=== PATIENT | male | born 1980 | race Caucasian/White ===

== ENCOUNTER 2020-06-27 04:40 | Inpatient (IN) | payer OTHER, SELFPAY ==
[2020-06-27] VITALS (14 sets, daily range): BP systolic 90–121; BP diastolic 59–75; PULSE 89–114; RESP 12–26; TEMP 36.6–37.4; O2SAT 93–98; BMI 31.8
--- NOTE | 2020-06-27 04:48 | ECG_ITS ---
Test Reason : CP Blood Pressure : / mmHG Vent. Rate : 112 BPM Atrial Rate : 112 BPM P-R Int : 124 ms QRS Dur : 070 ms QT Int : 320 ms P-R-T Axes : 047 037 035 degrees QTc Int : 436 ms Sinus tachycardia Borderline ECG No previous ECGs available Referred By: Sally Madera Electronically Signed By:JUVE EDWARDS MD
--- NOTE | 2020-06-27 04:52 | ED_ITS ---
HPI - SOB/Dyspnea General Chief Complaint: Dyspnea Stated Complaint: RESPIRATORY DISTRESS Time Seen by Provider: 06/27/20 04:48 Source: EMS Mode of arrival: EMS Limitations: other (patient is a vague historian and clearly intoxicated) History of Present Illness HPI Narrative: patient drinking and using IV heroin/cocaine tonight called EMS for dyspnea - RA sats in 80s. MD elicited complaint: shortness of breath Pertinent past history: asthma and IV drug use Onset (ago): hour(s) (few) Context: smoke/fume exposure Timing: constant Severity: severe Exacerbating factors: nothing Relieving factors: oxygen and bronchodilators Known history of: asthma and IVDU Associated symptoms: chest pain, cough and wheezing Treatment prior to arrival: oxygen, bronchodilator and aspirin Related Data Allergies Allergy/AdvReac Type Severity Reaction Status Date / Time No Known Allergies Allergy Verified 06/27/20 04:48 Review of Systems Review of Systems: Constitutional : No Fever, No Chills ENT/Mouth : No sore throat, No Rhinorrhea, No Swallowing Difficulty Eyes: No Eye Pain, No Swelling, No Redness Cardiovascular : pos Chest Pain, positive SOB, No Orthopnea, no Edema Respiratory : pos Cough, pos Sputum, pos Wheezing, positive dyspnea Gastrointestinal : No Nausea, No Vomiting, No Diarrhea, No abdominal Pain, No Hematochezia, No Melena Genitourinary : No Dysuria, No Urinary Frequency, No Hematuria Musculoskeletal : No joint pain, No Myalgias Skin : No Skin Lesions, No rash Neuro : No Weakness, No Numbness, No Dizziness, No Headache Psych : No Anxiety/Panic, No Depression Heme/Lymph: No Bruising, No Lymphadenopathy Endocrine : No Polyuria, No Polydipsia All other systems reviewed and are negative [facility] Past Medical History Attestation statement: The following information was validated with the patient. Medical History (Updated 06/27/20 @ 07:17 by Sally Madera DO) Asthma Latent tuberculosis Substance abuse Social History Social History (Updated 06/27/20 @ 04:56 by Sally Madera DO) Alcohol intake: never Smoking Status: Current every day smoker Use of substances other than those prescribed or required for medical reasons: Yes Substance Use Type: Crack/Cocaine and Heroin Substance Use Frequency: Chronic Longstanding Advance Directives: No Advance Directives Information Provided: No Physical Exam Vital Signs: Vital Signs: Last Vital Signs Temp 98.1 F 06/27/20 06:20 Pulse 108 H 06/27/20 06:20 Resp 17 06/27/20 06:20 BP 102/59 L 06/27/20 06:20 Pulse Ox 96 06/27/20 06:20 Body Mass Index 31.8 Appearance: Somnolent Oriented X3. Mild acute distress. Eyes: Pupils pinpoint ENT: Pharynx normal. Neck: Normal inspection. Neck supple. CVS: tachycardic heart rate and rhythm. Pulses normal. Respiratory: Mild respiratory distress. Breath sounds diffuse insp and end exp wheezes Abdomen: Soft and nontender. Skin: Skin warm and dry. Normal skin color. Normal skin turgor. Extremities: No lower extremity edema. No calf ttp Neuro: Oriented X 3. No motor deficit. No sensory deficit. Course Course Course Narrative: 99% on treatment, initial BPs low due to substance abuse (opiate overdose) and not infection or severe sepsis after narcan administration BP 114/62 and he is more awake and talking ddimer elevated CTA ordered troponin elevated no REGIS on EKG, already given ASA by EMS 30cc/kg bolus ordered at this time patient is improving planned admit still requires O2 but much improved, will add on zosyn for possible aspiration MDM - SOB/Dyspnea MDM Narrative Medical decision making narrative: 39 yo male with hx of asthma and dx with TB in alf 3 years ago (unsure of course) comes in with hypoxia and wheezing after IVDA along with chest pain at this time will obtain labs, cultures, CXR, 5mg neb, IV steroids and magnesium, the patient has pinpoint pupils and repeatedly nods off during interview will need narcan as well, COVID swab, anticipate admi ssion after initial resuscitation Lab Data Result diagrams: 06/27/20 05:07 06/27/20 05:07 Labs: Lab Results 06/27/20 06/27/20 06/27/20 Range/Units 05:06 05:06 05:07 WBC 11.2 H (4.8-10.8) X10*3/uL RBC 5.51 (4.60-5.80) X10*6/uL Hgb 16.6 (14.0-18.0) g/dl Hct 49.3 (42-52) % MCV 89.5 (80-98) fL MCH 30.1 (27.0-33.0) pg MCHC 33.7 (31.0-36.0) g/dl RDW 12.3 (11.0-16.0) % Plt Count 404 H (160-400) X10*3/uL MPV 8.8 L (9.4-12.4) fL Immature Gran % (Auto) 0.7 H (0.0-0.4) % Neut % (Auto) 81.9 H (45-73) % Lymph % (Auto) 11.6 L (20-40) % [place] % (Auto) 5.5 (2-11) % Eos % (Auto) 0.0 (0-4) % Baso % (Auto) 0.3 (0-2) % Lymph # (Auto) 1.3 (1.2-4.9) X10*3/uL [place] # (Auto) 0.6 (0.1-1.2) X10*3/uL Eos # (Auto) 0.0 (0.0-0.4) X10*3/uL Baso # (Auto) 0.0 (0.0-0.2) X10*3/uL Abs Immat Gran (auto) 0.08 H (0.00-0.03) X10*3/uL Absolute Neuts (auto) 9.2 H (2.0-8.3) X10*3/uL Absolute Nucleated RBC 0.000 (0.0-0.012) X10*3/uL Nucleated RBC % (auto) 0.0 (0.0-0.2) /100WBC D-Dimer NG/ML VBG pH 7.35 (7.32-7.43) VBG pCO2 44 mmhg VBG pO2 173 mmhg VBG HCO3 24 mmol/L VBG O2 Saturation 99.1 % VBG Base Excess -1.8 mmol/L Sodium (135-145) mmol/L Potassium (3.3-5.1) mmol/l Chloride (96-108) mmol/L Carbon Dioxide (22-29) mmol/L Anion Gap (12-20) BUN (9-16) mg/dL Creatinine (0.5-1.4) mg/dL Estim Creat Clear Calc Estimated GFR Random Glucose (60-115) mg/dL Lactic Acid 2.7 H* (0.5-2.0) mmol/L Calcium (8.4-10.2) mg/dL Magnesium (1.6-2.6) mg/dL Ferritin (20-250) ng/mL Total Bilirubin (0.0-1.0) mg/dL Direct Bilirubin (0.0-0.5) mg/dL AST (5-37) U/L ALT (0-40) U/L Alkaline Phosphatase (39-117) U/L Lactate Dehydrogenase (118-273) U/L Troponin I High Sens (<3.5-35.0) ng/L Total Protein (6.5-8.0) g/dL Albumin (3.5-5.0) g/dL Lipase (8-78) U/L Procalcitonin ng/mL Ethyl Alcohol mg/dL Coronavirus (PCR) (Negative) Influenza Type A (PCR) (Negative) Influenza Type B (PCR) (Negative) RSV RNA Qual (PCR) (Negative) 06/27/20 06/27/20 06/27/20 Range/Units 05:07 05:07 05:07 WBC (4.8-10.8) X10*3/uL RBC (4.60-5.80) X10*6/uL Hgb (14.0-18.0) g/dl Hct (42-52) % MCV (80-98) fL MCH (27.0-33.0) pg MCHC (31.0-36.0) g/dl RDW (11.0-16.0) % Plt Count (160-400) X10*3/uL MPV (9.4-12.4) fL Immature Gran % (Auto) (0.0-0.4) % Neut % (Auto) (45-73) % Lymph % (Auto) (20-40) % [place] % (Auto) (2-11) % Eos % (Auto) (0-4) % Baso % (Auto) (0-2) % Lymph # (Auto) (1.2-4.9) X10*3/uL [place] # (Auto) (0.1-1.2) X10*3/uL Eos # (Auto) (0.0-0.4) X10*3/uL Baso # (Auto) (0.0-0.2) X10*3/uL Abs Immat Gran (auto) (0.00-0.03) X10*3/uL Absolute Neuts (auto) (2.0-8.3) X10*3/uL Absolute Nucleated RBC (0.0-0.012) X10*3/uL Nucleated RBC % (auto) (0.0-0.2) /100WBC D-Dimer 908 NG/ML VBG pH (7.32-7.43) VBG pCO2 mmhg VBG pO2 mmhg VBG HCO3 mmol/L VBG O2 Saturation % VBG Base Excess mmol/L Sodium 138 (135-145) mmol/L Potassium 4.5 (3.3-5.1) mmol/l Chloride 104 (96-108) mmol/L Carbon Dioxide 24 (22-29) mmol/L Anion Gap 15 (12-20) BUN 21 H (9-16) mg/dL Creatinine 1.40 (0.5-1.4) mg/dL Estim Creat Clear Calc 80.7 Estimated GFR 57 Random Glucose 180 H (60-115) mg/dL Lactic Acid (0.5-2.0) mmol/L Calcium 9.0 (8.4-10.2) mg/dL Magnesium (1.6-2.6) mg/dL Ferritin 90 (20-250) ng/mL Total Bilirubin (0.0-1.0) mg/dL Direct Bilirubin (0.0-0.5) mg/dL AST (5-37) U/L ALT (0-40) U/L Alkaline Phosphatase (39-117) U/L Lactate Dehydrogenase 305 H (118-273) U/L Troponin I High Sens (<3.5-35.0) ng/L Total Protein (6.5-8.0) g/dL Albumin (3.5-5.0) g/dL Lipase (8-78) U/L Procalcitonin ng/mL Ethyl Alcohol mg/dL Coronavirus (PCR) NEGATIVE (Negative) Influenza Type A (PCR) NEGATIVE (Negative) Influenza Type B (PCR) NEGATIVE (Negative) RSV RNA Qual (PCR) NEGATIVE (Negative) 06/27/20 06/27/20 06/27/20 Range/Units 05:07 05:07 05:07 WBC (4.8-10.8) X10*3/uL RBC (4.60-5.80) X10*6/uL Hgb (14.0-18.0) g/dl Hct (42-52) % MCV (80-98) fL MCH (27.0-33.0) pg MCHC (31.0-36.0) g/dl RDW (11.0-16.0) % Plt Count (160-400) X10*3/uL MPV (9.4-12.4) fL Immature Gran % (Auto) (0.0-0.4) % Neut % (Auto) (45-73) % Lymph % (Auto) (20-40) % [place] % (Auto) (2-11) % Eos % (Auto) (0-4) % Baso % (Auto) (0-2) % Lymph # (Auto) (1.2-4.9) X10*3/uL [place] # (Auto) (0.1-1.2) X10*3/uL Eos # (Auto) (0.0-0.4) X10*3/uL Baso # (Auto) (0.0-0.2) X10*3/uL Abs Immat Gran (auto) (0.00-0.03) X10*3/uL Absolute Neuts (auto) (2.0-8.3) X10*3/uL Absolute Nucleated RBC (0.0-0.012) X10*3/uL Nucleated RBC % (auto) (0.0-0.2) /100WBC D-Dimer NG/ML VBG pH (7.32-7.43) VBG pCO2 mmhg VBG pO2 mmhg VBG HCO3 mmol/L VBG O2 Saturation % VBG Base Excess mmol/L Sodium (135-145) mmol/L Potassium (3.3-5.1) mmol/l Chloride (96-108) mmol/L Carbon Dioxide (22-29) mmol/L Anion Gap (12-20) BUN (9-16) mg/dL Creatinine (0.5-1.4) mg/dL Estim Creat Clear Calc Estimated GFR Random Glucose (60-115) mg/dL Lactic Acid (0.5-2.0) mmol/L Calcium (8.4-10.2) mg/dL Magnesium 2.3 (1.6-2.6) mg/dL Ferritin (20-250) ng/mL Total Bilirubin 0.4 (0.0-1.0) mg/dL Direct Bilirubin 0.3 (0.0-0.5) mg/dL AST 44 H (5-37) U/L ALT 39 (0-40) U/L Alkaline Phosphatase 69 (39-117) U/L Lactate Dehydrogenase (118-273) U/L Troponin I High Sens 54.9 H (<3.5-35.0) ng/L Total Protein 7.2 (6.5-8.0) g/dL Albumin 4.2 (3.5-5.0) g/dL Lipase 47 (8-78) U/L Procalcitonin ng/mL Ethyl Alcohol < 10 mg/dL Coronavirus (PCR) (Negative) Influenza Type A (PCR) (Negative) Influenza Type B (PCR) (Negative) RSV RNA Qual (PCR) (Negative) 06/27/20 Range/Units 05:07 WBC (4.8-10.8) X10*3/uL RBC (4.60-5.80) X10*6/uL Hgb (14.0-18.0) g/dl Hct (42-52) % MCV (80-98) fL MCH (27.0-33.0) pg MCHC (31.0-36.0) g/dl RDW (11.0-16.0) % Plt Count (160-400) X10*3/uL MPV (9.4-12.4) fL Immature Gran % (Auto) (0.0-0.4) % Neut % (Auto) (45-73) % Lymph % (Auto) (20-40) % [place] % (Auto) (2-11) % Eos % (Auto) (0-4) % Baso % (Auto) (0-2) % Lymph # (Auto) (1.2-4.9) X10*3/uL [place] # (Auto) (0.1-1.2) X10*3/uL Eos # (Auto) (0.0-0.4) X10*3/uL Baso # (Auto) (0.0-0.2) X10*3/uL Abs Immat Gran (auto) (0.00-0.03) X10*3/uL Absolute Neuts (auto) (2.0-8.3) X10*3/uL Absolute Nucleated RBC (0.0-0.012) X10*3/uL Nucleated RBC % (auto) (0.0-0.2) /100WBC D-Dimer NG/ML VBG pH (7.32-7.43) VBG pCO2 mmhg VBG pO2 mmhg VBG HCO3 mmol/L VBG O2 Saturation % VBG Base Excess mmol/L Sodium (135-145) mmol/L Potassium (3.3-5.1) mmol/l Chloride (96-108) mmol/L Carbon Dioxide (22-29) mmol/L Anion Gap (12-20) BUN (9-16) mg/dL Creatinine (0.5-1.4) mg/dL Estim Creat Clear Calc Estimated GFR Random Glucose (60-115) mg/dL Lactic Acid (0.5-2.0) mmol/L Calcium (8.4-10.2) mg/dL Magnesium (1.6-2.6) mg/dL Ferritin (20-250) ng/mL Total Bilirubin (0.0-1.0) mg/dL Direct Bilirubin (0.0-0.5) mg/dL AST (5-37) U/L ALT (0-40) U/L Alkaline Phosphatase (39-117) U/L Lactate Dehydrogenase (118-273) U/L Troponin I High Sens (<3.5-35.0) ng/L Total Protein (6.5-8.0) g/dL Albumin (3.5-5.0) g/dL Lipase (8-78) U/L Procalcitonin 0.27 ng/mL Ethyl Alcohol mg/dL Coronavirus (PCR) (Negative) Influenza Type A (PCR) (Negative) Influenza Type B (PCR) (Negative) RSV RNA Qual (PCR) (Negative) ECG Data Attestation: I personally reviewed and interpreted this ECG as follows: ECG interpretation date: 06/27/20 ECG interpretation time: 04:59 Interpretation: Rate: 112 Rhythm: sinus tachycardia [place]: normal Normal P waves. Normal JEFF. Normal QRS complex. ST T wave : normal no REGIS qTC: normal prior studies: no acute ischemia The study has been interpreted contemporaneously by me. . Critical Care Time Critical Care Time Critical Care Time: Yes Total Critical Care Time: 60 Attestation: 5mg neb, IVF 30cc/kg bolus, reassessments, IV narcan I attest to this time spent taking care of the patient Discharge Plan Discharge Clinical Impression: Acidosis, lactic, Elevated troponin, Cocaine abuse Asthma with exacerbation Qualifiers: Asthma severity: moderate Asthma persistence: unspecified Qualified Code(s): J45.901 - Unspecified asthma with (acute) exacerbation Heroin overdose Qualifiers: Encounter type: initial encounter Injury intent: accidental or unintentional Qualified Code(s): T40.1X1A - Poisoning by heroin, accidental (unintentional), initial encounter Pneumonia Qualifiers: Pneumonia type: due to unspecified organism Laterality: unspecified laterality Lung location: unspecified part of lung Qualified Code(s): J18.9 - Pneumonia, unspecified organism Patient Disposition: Admitted As Inpatient
[2020-06-27] MEDS: methylPREDNISolone Sod Succ/PF 125 MG/2 ML VIAL 60 MG IVPUSH (05:04)
[2020-06-27] MEDS: Magnesium Sulfate/H2O 2 GM/50 ML PIGGYBACK IV (05:04)
[2020-06-27] MEDS: Naloxone HCl 0.4 MG/ML VIAL 0.2 MG IVPUSH (05:05)
[2020-06-27] MEDS: Albuterol Sulfate (0.083%) 2.5 MG/3 ML VIAL.NEB 5 MG INHALE (05:05)
[2020-06-27] MEDS: 0.9 % Sodium Chloride 500 ML IV (05:15)
[2020-06-27 05:17] LABS: Basophils Percent Auto 0.3 % (0-2); Hematocrit 49.3 % (42-52); Hemoglobin 16.6 g/dl (14.0-18.0); Imm Gran Abs Auto 0.08 X10*3/uL (0.00-0.03); Imm Gran Pct Auto 0.7 % (0.0-0.4); Lymphocytes Absolute Auto 1.3 X10*3/uL (1.2-4.9); Lymphocytes Percent Auto 11.6 % (20-40); MANUAL DIFF FLAG NO; Mean Corpuscular HGB Conc 33.7 g/dl (31.0-36.0); Mean Corpuscular Hemoglobin 30.1 pg (27.0-33.0); Mean Corpuscular Volume 89.5 fL (80-98); Mean Platelet Volume 8.8 fL (9.4-12.4); Monocytes Absolute Auto 0.6 X10*3/uL (0.1-1.2); Monocytes Percent Auto 5.5 % (2-11); Neutrophils Absolute Auto 9.2 X10*3/uL (2.0-8.3); Neutrophils Percent Auto 81.9 % (45-73); Platelet Count 404 X10*3/uL (160-400); Red Blood Count 5.51 X10*6/uL (4.60-5.80); Red Cell Distribution Width 12.3 % (11.0-16.0); White Blood Count 11.2 X10*3/uL (4.8-10.8)
[2020-06-27] MEDS: Azithromycin 500 MG TABLET PO (05:21)
[2020-06-27] MEDS: cefTRIAXone sodium 1 GM in 0.9 % Sodium Chloride 50 ML IV (05:23)
[2020-06-27 05:29] LABS: D Dimer 908 NG/ML
[2020-06-27 05:32] LABS: Base Excess VBG -1.8 mmol/L; HCO3 VBG 24 mmol/L; Oxygen Saturation VBG 99.1 %; PCO2 VBG 44 mmhg; PO2 VBG 173 mmhg; pH VBG 7.35 (7.32-7.43)
--- NOTE | 2020-06-27 05:40 | CT_ITS ---
EXAMINATION: CTA CHEST PE STUDY CLINICAL INFORMATION: chest pain, dyspnea elevated ddimer COMPARISON: No pertinent prior studies are available for comparison. TECHNIQUE: Prior to contrast administration, noncontrast localization images were obtained. After the administration of 60 mL of Omnipaque 350 IV contrast, contiguous thin slice helical images were obtained through the thorax. Reformatted MIP images in the coronal and sagittal planes were obtained at the acquisition workstation. This CT examination was performed using dose optimization techniques as appropriate, variously including the following: *Automated exposure control *Adjustment of mA and/or kV according to patient size (this includes techniques or standardized protocols for targeted exams where dose is matched to indication/reason for exam; i.e. extremities or head) *Use of iterative reconstruction technique DLP: 330 mGy-cm. FINDINGS: The bolus timing on this study was acceptable for visualization of the pulmonary arterial tree. There are no intraluminal pulmonary arterial filling defects present to suggest pulmonary embolism. Patchy bilateral airspace disease is seen right more so than left. Infectious etiology would be suspected. Aspiration considered less likely effusion. This is not the typical pattern for edema. Calcified granuloma incidentally seen in the left lower lobe. No abnormal pulmonary nodules or masses are appreciated. No significant hilar or mediastinal adenopathy. There is no evidence of pleural effusion or pneumothorax. The heart is normal in size. No evidence of ventricular septal bowing or right heart strain. Great vessels are normal. Otherwise the mediastinum is unremarkable. There is no pericardial effusion or pericardial thickening. Limited evaluation of the upper abdominal viscera is unremarkable. CT/CT angio chest PE protocol IMPRESSION: No evidence for pulmonary emboli. Patchy bilateral right greater than left airspace disease is seen infectious etiology suspected. Consider atypical or viral infection with this appearance. VTE: Negative
[2020-06-27 05:47] LABS: Ethanol < 10 mg/dL
[2020-06-27 05:52] LABS: Lactic Acid 2.7 mmol/L (0.5-2.0)
[2020-06-27 05:57] LABS: Influenza A PCR NEGATIVE (Negative); Influenza B PCR NEGATIVE (Negative); Resp Syncy Virus RNA Qual PCR NEGATIVE (Negative); SARS COV2 PCR INHOUSE NEGATIVE (Negative)
[2020-06-27 05:59] LABS: Anion Gap 15 (12-20); Blood Urea Nitrogen 21 mg/dL (9-16); Carbon Dioxide 24 mmol/L (22-29); Chloride 104 mmol/L (96-108); Creatinine Clr Calc Pharmacy 80.7; Estimated Glomerular Filt Rate 57; Glucose Random 180 mg/dL (60-115); Lactate Dehydrogenase 305 U/L (118-273); Potassium 4.5 mmol/l (3.3-5.1); Sodium 138 mmol/L (135-145)
[2020-06-27 06:02] LABS: Alanine Aminotransferase 39 U/L (0-40); Albumin Level 4.2 g/dL (3.5-5.0); Alkaline Phosphatase 69 U/L (39-117); Aspartate Amino Transferase 44 U/L (5-37); Bilirubin Direct 0.3 mg/dL (0.0-0.5); Bilirubin Total 0.4 mg/dL (0.0-1.0); Lipase 47 U/L (8-78); Magnesium 2.3 mg/dL (1.6-2.6); Total Protein 7.2 g/dL (6.5-8.0)
[2020-06-27 06:05] LABS: Troponin-I High Sensitivity 54.9 ng/L (<3.5-35.0)
[2020-06-27 06:23] LABS: Ferritin 90 ng/mL (20-250)
[2020-06-27 06:38] LABS: Procalcitonin 0.27 ng/mL
--- NOTE | 2020-06-27 06:55 | PC.NURSE ---
REPORT FROM GAVIN HERRERA. PT RESTING QUIETLY ON STRETCHER
[2020-06-27] MEDS: iohexoL 350 MG/ML 100 ML INFUS..BTL IV (07:06)
[2020-06-27 07:13] LABS: Reflex Lactate? Lactic Acid Added
--- NOTE | 2020-06-27 07:42 | PC.NURSE ---
PT AWARE OF IMPENDING ADMISSION. REQUESTING FOOD.
[2020-06-27] MEDS: Piperacillin Sodium/Tazobactam 3.375 GM in 0.9 % Sodium Chloride 50 ML IV (08:01)
[2020-06-27 08:04] LABS: B Type Natriuretic Peptide 19 pg/mL (<100)
--- NOTE | 2020-06-27 09:47 | PC.NURSE ---
PT TALKING ON PHONE CONTINUOSLY. GIVEN BKFST TRAY
--- NOTE | 2020-06-27 10:32 | P.HPHOSP_ITS ---
History of Present Illness Date of Service: 06/27/20 <Altagracia Castillo NP - Last Filed: 06/27/20 14:33> Chief Complaint: Shortness of breath <Altagracia Castillo NP - Last Filed: 06/27/20 14:33> 39-year-old man presenting to the ER with shortness of breath. Apparently he had used alcohol, heroin /cocaine and developed dyspnea. Apparently EMS reported his oxygen saturation in the 80s. He reported that he had been clean for some time but only was last night and seemed quite vague about it. He denied any recent fever, chills, nausea, vomiting, diarrhea. He did report a cough with green and brown sputum, blood tinged. Did report some right-sided chest pain near the axilla that he reported as sharp especially when taken a deep breath in and now. He was found to have an elevated D-dimer therefore [facility] CT was obtained which was negative for PE but did show a consolidation. He was noted to be tachycardic, tachypneic with elevated lactic acid. He was given 30 mL/kg IV fluid bolus, Zosyn, Rocephin, azithromycin. He will be admitted for further management treatment of severe sepsis related to community-acquired pneumonia versus aspiration pneumonia. <Altagracia Castillo NP - Last Filed: 06/27/20 14:33> Review of Systems Review of Systems: Denies any recent fever chills or decrease in appetite respiratory See HPI cardiovascular see HPI gastrointestinal denies any dysphagia abdominal pain nausea vomiting or diarrhea genitourinary denies any dysuria frequency or hematuria musculoskeletal denies any joint pain or swelling neuropsych denies any weakness or seizures all other systems reviewed are negative <Altagracia Castillo NP - Last Filed: 06/27/20 14:33> [facility] Medical History: Medical History (Updated 07/07/20 @ 00:00 by Devin Jackson) Asthma Asthma with exacerbation Elevated troponin Heroin overdose Latent tuberculosis Substance abuse <Altagracia Castillo NP - Last Filed: 06/27/20 14:33> Functional capacity: independent ambulation <Altagracia Castillo NP - Last Filed: 06/27/20 14:33> Pertinent family history: denies cardiac disease <Altagracia Castillo NP - Last Filed: 06/27/20 14:33> Social History: Social History (Updated 06/27/20 @ 04:56 by Sally Madera DO) Household Members: Spouse Housing: Apartment Alcohol intake: never Smoking Status: Current every day smoker Tobacco Type: Cigarette Packs Per Day: 1.5 Cigarettes Per Day: 30.0 Second Hand Smoke Exposure: No Substance Use Type: Crack/Cocaine and Heroin service: No Current occupational status: unemployed <Altagracia Castillo NP - Last Filed: 06/27/20 14:33> Meds Allergies/Adverse reactions: Allergies Allergy/AdvReac Type Severity Reaction Status Date / Time No Known Allergies Allergy Verified 06/27/20 04:48 <Altagracia Castillo NP - Last Filed: 06/27/20 14:33> Physical Exam Vital Signs and Narrative: Vital Signs: Last Vital Signs Temp 98.1 F 06/27/20 06:20 Pulse 105 H 06/27/20 08:03 Resp 18 06/27/20 08:03 BP 121/75 06/27/20 08:03 Pulse Ox 98 06/27/20 08:03 Body Mass Index 31.8 <Altagracia Castillo NP - Last Filed: 06/27/20 14:33> Results Labs CBC and Chem 7: : 06/29/20 05:37 06/28/20 05:21 <Altagracia Castillo NP - Last Filed: 06/27/20 14:33> Labs: Laboratory Results - last 24 hr 06/27/20 06/27/20 06/27/20 05:06 05:06 05:07 MCV 89.5 MCH 30.1 MCHC 33.7 RDW 12.3 Plt Count 404 H MPV 8.8 L Immature Gran % (Auto) 0.7 H Neut % (Auto) 81.9 H Lymph % (Auto) 11.6 L [place] % (Auto) 5.5 Eos % (Auto) 0.0 Baso % (Auto) 0.3 Lymph # (Auto) 1.3 [place] # (Auto) 0.6 Eos # (Auto) 0.0 Baso # (Auto) 0.0 Abs Immat Gran (auto) 0.08 H Absolute Neuts (auto) 9.2 H Absolute Nucleated RBC 0.000 Nucleated RBC % (auto) 0.0 D-Dimer VBG pH 7.35 VBG pCO2 44 VBG pO2 173 VBG HCO3 24 VBG O2 Saturation 99.1 VBG Base Excess -1.8 Anion Gap Estim Creat Clear Calc Estimated GFR Random Glucose Lactic Acid 2.7 H* Calcium Magnesium Ferritin Total Bilirubin Direct Bilirubin AST ALT Alkaline Phosphatase Lactate Dehydrogenase Troponin I High Sens B-Natriuretic Peptide Total Protein Albumin Lipase Procalcitonin Ethyl Alcohol Coronavirus (PCR) Influenza Type A (PCR) Influenza Type B (PCR) RSV RNA Qual (PCR) 06/27/20 06/27/20 06/27/20 05:07 05:07 05:07 MCV MCH MCHC RDW Plt Count MPV Immature Gran % (Auto) Neut % (Auto) Lymph % (Auto) [place] % (Auto) Eos % (Auto) Baso % (Auto) Lymph # (Auto) [place] # (Auto) Eos # (Auto) Baso # (Auto) Abs Immat Gran (auto) Absolute Neuts (auto) Absolute Nucleated RBC Nucleated RBC % (auto) D-Dimer 908 VBG pH VBG pCO2 VBG pO2 VBG HCO3 VBG O2 Saturation VBG Base Excess Anion Gap 15 Estim Creat Clear Calc 80.7 Estimated GFR 57 Random Glucose 180 H Lactic Acid Calcium 9.0 Magnesium Ferritin 90 Total Bilirubin Direct Bilirubin AST ALT Alkaline Phosphatase Lactate Dehydrogenase 305 H Troponin I High Sens B-Natriuretic Peptide Total Protein Albumin Lipase Procalcitonin Ethyl Alcohol Coronavirus (PCR) NEGATIVE Influenza Type A (PCR) NEGATIVE Influenza Type B (PCR) NEGATIVE RSV RNA Qual (PCR) NEGATIVE 06/27/20 06/27/20 06/27/20 05:07 05:07 05:07 MCV MCH MCHC RDW Plt Count MPV Immature Gran % (Auto) Neut % (Auto) Lymph % (Auto) [place] % (Auto) Eos % (Auto) Baso % (Auto) Lymph # (Auto) [place] # (Auto) Eos # (Auto) Baso # (Auto) Abs Immat Gran (auto) Absolute Neuts (auto) Absolute Nucleated RBC Nucleated RBC % (auto) D-Dimer VBG pH VBG pCO2 VBG pO2 VBG HCO3 VBG O2 Saturation VBG Base Excess Anion Gap Estim Creat Clear Calc Estimated GFR Random Glucose Lactic Acid Calcium Magnesium 2.3 Ferritin Total Bilirubin 0.4 Direct Bilirubin 0.3 AST 44 H ALT 39 Alkaline Phosphatase 69 Lactate Dehydrogenase Troponin I High Sens 54.9 H B-Natriuretic Peptide Total Protein 7.2 Albumin 4.2 Lipase 47 Procalcitonin Ethyl Alcohol < 10 Coronavirus (PCR) Influenza Type A (PCR) Influenza Type B (PCR) RSV RNA Qual (PCR) 06/27/20 06/27/20 05:07 05:07 MCV MCH MCHC RDW Plt Count MPV Immature Gran % (Auto) Neut % (Auto) Lymph % (Auto) [place] % (Auto) Eos % (Auto) Baso % (Auto) Lymph # (Auto) [place] # (Auto) Eos # (Auto) Baso # (Auto) Abs Immat Gran (auto) Absolute Neuts (auto) Absolute Nucleated RBC Nucleated RBC % (auto) D-Dimer VBG pH VBG pCO2 VBG pO2 VBG HCO3 VBG O2 Saturation VBG Base Excess Anion Gap Estim Creat Clear Calc Estimated GFR Random Glucose Lactic Acid Calcium Magnesium Ferritin Total Bilirubin Direct Bilirubin AST ALT Alkaline Phosphatase Lactate Dehydrogenase Troponin I High Sens B-Natriuretic Peptide 19 Total Protein Albumin Lipase Procalcitonin 0.27 Ethyl Alcohol Coronavirus (PCR) Influenza Type A (PCR) Influenza Type B (PCR) RSV RNA Qual (PCR) <Altagracia Castillo NP - Last Filed: 06/27/20 14:33> Imaging Radiologist's Impressions: Impressions Chest CTA 06/27/20 05:40 IMPRESSION: No evidence for pulmonary emboli. Patchy bilateral right greater than left airspace disease is seen infectious etiology suspected. Consider atypical or viral infection with this appearance. VTE: Negative <Altagracia Castillo NP - Last Filed: 06/27/20 14:33> Assessment and Plan (1) Pneumonia: Qualifiers: Laterality: unspecified laterality Lung location: unspecified part of lung Pneumonia type: due to unspecified organism Qualified Code(s): J18.9 - Pneumonia, unspecified organism <Altagracia Castillo NP - Last Filed: 06/27/20 14:33> Status: Acute <Altagracia Castillo NP - Last Filed: 06/27/20 14:33> 39 year old man admitted with severe sepsis related to CAP. Severe sepsis. Tachycardia, tachypnea, lactic acidosis. Follow blood culture. Aspiration pneumonia. Zosyn, robitussin for cough. Supplemental oxygen as needed. NSTEMI. Inital troponin 54.9 with repeat 228.2. Used cocaine last night, possible vasospasm. Start therapeutic Lovenox, cardiology to follow. Echo tommorrow. Aspirin. Asthma exacerbation. Duonebs every 4 hours while awake, solumedrol. Supplemental oxygen as needed. Smoker. NRT, discussed smoking cessation. Substance abuse. Denied heroin use. Reported one episode of cocaine use last night. SWAT consult. DVT prophylaxis with Lovenox. Discussed with Dr. Calderon. Full code <Altagracia Castillo NP - Last Filed: 06/27/20 14:33>
--- NOTE | 2020-06-27 10:45 | PC.NURSE ---
HOSPITALIST IN TO SEE PT
[2020-06-27 11:03] LABS: ~Lactic Acid-LAB USE ONLY 1.5 mmol/L (0.5-2.0)
[2020-06-27 11:17] LABS: Troponin-I High Sensitivity 228.2 ng/L (<3.5-35.0)
[2020-06-27] MEDS: Ibuprofen 800 MG TABLET PO (15:05)
--- NOTE | 2020-06-27 17:56 | PC.NURSE ---
[place] [facility] [place]
[2020-06-27 19:02] LABS: Troponin-I High Sensitivity 252.4 ng/L (<3.5-35.0)
--- NOTE | 2020-06-27 19:07 | PC.NURSE ---
report givent to Carmelo ALONSO on [facility] for pt admit
[2020-06-27] MEDS: Enoxaparin Sodium 100 MG/ML SYRINGE 95 MG SUBCUT (20:53)
[2020-06-27] MEDS: Flu Vacc QS2020-21(6mos up)/PF 0.5 ML SYRINGE IM (20:54)
[2020-06-27] MEDS: 0.9 % Sodium Chloride Flush 3 ML SYRINGE IVFLUSH (20:55)
[2020-06-27] MEDS: Aspirin 325 MG TABLET PO (20:55)
[2020-06-28] VITALS (8 sets, daily range): BP systolic 113–135; BP diastolic 55–85; PULSE 82–105; RESP 14–20; TEMP 36.4–36.9; O2SAT 95–99; BMI 31.8
[2020-06-28] MEDS: 0.9 % Sodium Chloride Flush 3 ML SYRINGE IVFLUSH ×4 (00:37→23:54)
--- NOTE | 2020-06-28 05:10 | PC.NURSE ---
Alert and oriented x 4. independent with ADLs, ambulates steadily. Complained of lower back pain. Instructed that urine specimen is needed for tox screen, patient reluctant of doing it. Slept most part of the night with no acute issues noted. Needs were attended. Will continue care plan.
[2020-06-28 06:38] LABS: MANUAL DIFF FLAG NO
[2020-06-28 06:50] LABS: Basophils Percent Auto 0.1 % (0-2); Hematocrit 43.4 % (42-52); Hemoglobin 14.2 g/dl (14.0-18.0); Imm Gran Abs Auto 0.06 X10*3/uL (0.00-0.03); Imm Gran Pct Auto 0.4 % (0.0-0.4); Lymphocytes Absolute Auto 2.6 X10*3/uL (1.2-4.9); Lymphocytes Percent Auto 18.5 % (20-40); Mean Corpuscular HGB Conc 32.7 g/dl (31.0-36.0); Mean Corpuscular Hemoglobin 29.6 pg (27.0-33.0); Mean Corpuscular Volume 90.6 fL (80-98); Mean Platelet Volume 9.6 fL (9.4-12.4); Monocytes Percent Auto 6.8 % (2-11); Neutrophils Absolute Auto 10.4 X10*3/uL (2.0-8.3); Neutrophils Percent Auto 74.2 % (45-73); Platelet Count 296 X10*3/uL (160-400); Red Blood Count 4.79 X10*6/uL (4.60-5.80); Red Cell Distribution Width 12.3 % (11.0-16.0)
[2020-06-28 07:30] LABS: Anion Gap 12 (12-20); Blood Urea Nitrogen 27 mg/dL (9-16); Calcium 8.4 mg/dL (8.4-10.2); Carbon Dioxide 23 mmol/L (22-29); Chloride 106 mmol/L (96-108); Creatinine Clr Calc Pharmacy 143.1; Estimated Glomerular Filt Rate > 60; Glucose Random 89 mg/dL (60-115); Potassium 4.4 mmol/l (3.3-5.1); Sodium 137 mmol/L (135-145)
[2020-06-28] MEDS: Aspirin 81 MG TAB.CHEW PO (09:10)
[2020-06-28] MEDS: Enoxaparin Sodium 100 MG/ML SYRINGE 95 MG SUBCUT (09:10)
--- NOTE | 2020-06-28 09:56 | MHC.CM.PN ---
CM met with patient at the bedside who reports he is independent and lives with his mom. Patient referred to financial but does have Medicaid, patient is unemployed and does not have a PCP. Patient does not have a HCP or an emergency contact. Willing to name his mom but phone number is in patient's phone which is . Discussed discharge plan, home no services. Patient is unsure who will provide transportation and might need assistance. CM will continue to follow patient for discharge needs.
[2020-06-28] MEDS: guaiFENesin DM 200/20/10 ML 10 ML SYRUP PO ×3 (12:35→23:51)
[2020-06-28] MEDS: Piperacillin Sodium/Tazobactam 3.375 GM in 0.9 % Sodium Chloride 50 ML IV ×3 (12:36→23:52)
--- NOTE | 2020-06-28 12:45 | P.CONCA_ITS ---
History of Present Illness History of Present Illness Date of Consult: June 28, 2020 Requesting physician: Ella Ascencio Consult reason: chest pain Chief complaint: PNA Narrative: 39-year-old gentleman who is presenting with chest discomfort and dyspnea. He has background history of tobacco abuse and smokes 1 pack per day. He also has been snorting cocaine and heroin. He said over the last week or so he was progressively getting short of breath till the day of presentation when his breathing worsened significantly. He has been wheezing. He also has some chest discomfort with his dyspnea. His CT scan is showing changes consistent with the viral or atypical pneumonia. He has been started on IV antibiotics at this point. At the time of interview was lying flat without significant dyspnea. He was just worried about is wheezing. no other concerns right now. He said he has been snorting heroin but not cocaine. Review of Systems Review of Systems: Short of breath, wheezing Yes all other systems are reviewed and are negative PMFSH Past Medical History Medical History (Updated 06/27/20 @ 11:05 by Altagracia Castillo NP) Asthma Latent tuberculosis Substance abuse Functional capacity: independent ambulation Social History Social History (Updated 06/27/20 @ 04:56 by Sally Madera DO) Household Members: Spouse Housing: Apartment Do you presently have visiting nurse or other home services: No Alcohol intake: never Smoking Status: Current every day smoker Tobacco Type: Cigarette Packs Per Day: 1.5 Cigarettes Per Day: 30.0 Smoked in Last 30 Days: Yes Patient Interested in Nicotine Replacement: Yes Patient Given Instructions on How to Stop Smoking: No Second Hand Smoke Exposure: No Use of substances other than those prescribed or required for medical reasons: Yes Substance Use Type: Crack/Cocaine and Heroin Substance Use Frequency: Chronic Longstanding Last Used Substance: Hours (ago) Last Used Substance Other:: overnight Currently Displaying Signs/Symptoms of Drug Intoxication Withdrawal: No Any prior treatment program specific to substance use: No Have you been hit, kicked, punched, or otherwise hurt by someone within the past year? If so, by whom?: No Do you feel safe in your current relationship?: No Current Relationship Is there a partner from a previous relationship who is making you feel unsafe now?: No Are you made to feel afraid or neglected: No Spiritual Healthcare Practices: denies Sikh Healthcare Practices: denies Cultural Healthcare Practices: denies Advance Directives: No Advance Directives Information Provided: No Advance Directives on File: No Do you have thoughts of harming others: None Do you have a plan to hurt others: No Plan Recently lost weight without trying: No service: No Current occupational status: unemployed Meds Allergies Allergy/AdvReac Type Severity Reaction Status Date / Time No Known Allergies Allergy Verified 06/27/20 04:48 Home Medications Medication Instructions Recorded Confirmed Type No Known Home Meds 06/27/20 06/27/20 History Physical Exam Vital Signs: Vital Signs: Last Vital Signs Temp 97.9 F 06/28/20 08:00 Pulse 90 06/28/20 08:00 Resp 18 06/28/20 08:00 BP 131/75 06/28/20 08:00 Pulse Ox 99 06/28/20 08:00 Body Mass Index 31.8 GENERAL APPEARANCE: in no acute distress, well developed. HEENT: unremarkable. HEAD: normocephalic, atraumatic. NECK/THYROID: no carotid bruit, JVD+. SKIN: no suspicious lesions, warm and dry. HEART: no murmurs, regular rate and rhythm, S1, S2 normal. LUNGS: right more than left lung Expiratory wheezes. ABDOMEN: normal, bowel sounds present, soft, nontender, nondistended. EXTREMITIES: no clubbing, cyanosis, or edema. PERIPHERAL PULSES: equal. NEUROLOGIC: nonfocal, alert and oriented. PSYCH: mood/affect full range. Results Labs and Meds Result diagrams: 06/28/20 05:21 06/28/20 05:21 Lab results: Laboratory Results - last 24 hr 06/27/20 06/28/20 06/28/20 18:19 05:21 05:21 WBC 14.0 H RBC 4.79 Hgb 14.2 Hct 43.4 MCV 90.6 MCH 29.6 MCHC 32.7 RDW 12.3 Plt Count 296 D MPV 9.6 Immature Gran % (Auto) 0.4 Neut % (Auto) 74.2 H Lymph % (Auto) 18.5 L [place] % (Auto) 6.8 Eos % (Auto) 0.0 Baso % (Auto) 0.1 Lymph # (Auto) 2.6 [place] # (Auto) 1.0 Eos # (Auto) 0.0 Baso # (Auto) 0.0 Abs Immat Gran (auto) 0.06 H Absolute Neuts (auto) 10.4 H Absolute Nucleated RBC 0.000 Nucleated RBC % (auto) 0.0 Sodium 137 Potassium 4.4 Chloride 106 Carbon Dioxide 23 Anion Gap 12 BUN 27 H Creatinine 0.79 Estim Creat Clear Calc 143.1 Estimated GFR > 60 Random Glucose 89 D Calcium 8.4 D Troponin I High Sens 252.[address] scan - chest: Radiologist's impression: Right more than left patchy infiltrative process with differentials of viral versus atypical pneumonia. EKG Interpretation EKG Comments: ECG from June 27 at 04:51 showing sinus tachycardia at 112 beats per minute, normal axis, no significant ST-T changes. QTC was 436 milliseconds. Assessment and Plan (1) Asthma with exacerbation: Qualifiers: Asthma persistence: unspecified Asthma severity: moderate Qualified Code(s): J45.901 - Unspecified asthma with (acute) exacerbation Status: Acute (2) Cocaine abuse: Status: Acute (3) Elevated troponin: Status: Acute (4) Pneumonia: Qualifiers: Laterality: unspecified laterality Lung location: unspecified part of lung Pneumonia type: due to unspecified organism Qualified Code(s): J18.9 - Pneumonia, unspecified organism Status: Acute 39-year-old gentleman with the substance abuse and background of asthma presenting with dyspnea and chest discomfort. He has mildly abnormal troponin levels. Clinical story sounds more like asthma exacerbation due to infective process. He has been started on steroids and antibiotics. He has some JVD on exam. He has cocaine abuse history. I will check a BNP level and do an echocardiogram to assess LV for any myopathy. In the meantime he should be treated for his pneumonia. Agree with steroids. We will follow along with you. Thank you for allowing me to participate in the care of your patient. Please feel free to contact me if you have any questions. Procedures Abscess I/D Date of Service: 06/28/20
[2020-06-28] MEDS: Albuterol/Iprat 2.5/0.5MG 3 ML AMPUL.NEB INHALE ×3 (13:01→19:23)
--- NOTE | 2020-06-28 15:15 | HO.PM.IMPN ---
Subjective Subjective Date of Service: 06/28/20 Interval History: patient complaining of shortness of breath and productive cough, appears frustrated since cannot communicate with family has no medical service representative. Review of Systems General no headache,no dizziness no fever chills. CVS no chest pain, no palpitation. Respiratory complaining of productive cough dark-colored sputum question bloody, shortness of breath Gastrointestinal no nausea, no vomiting, no abdominal pain Physical Exam Vital Signs: Vital Signs: Last Vital Signs Temp 97.5 F 06/28/20 12:00 Pulse 102 H 06/28/20 15:07 Resp 20 06/28/20 12:00 BP 134/79 06/28/20 12:00 Pulse Ox 98 06/28/20 12:00 Body Mass Index 31.8 General no acute distress. Neck is supple no JVD. CVS regular rate rhythm, Respiratory bilateral rhonchi, no respiratory distress, Gastrointestinal abdomen soft, nontender, bowel sounds audible, Extremities no clubbing cyanosis or edema. Neuro nonfocal Skin no rash Objective Data Current Medications Generic Name Dose Route Start Last Admin Trade Name Freq PRN Reason Stop Dose Admin Acetaminophen 650 mg 06/27/20 20:02 Acetaminophen 325 Mg Tablet PO Q6H PRN Pain, Mild (Pain Scale 1-3) Albuterol/Ipratropium 3 ml 06/28/20 12:00 06/28/20 15:04 Albuterol/Iprat 2.5/0.5mg 3 Ml Ampul.Neb INHALE 3 ml RQ4H WHILE AWAKE MICHAEL Administration Aspirin 81 mg 06/28/20 09:00 06/28/20 09:10 Aspirin 81 Mg Tab.Chew PO 81 mg DAILY MICHAEL Administration Guaifenesin/Dextromethorphan 10 ml 06/28/20 11:30 06/28/20 12:35 Guaifenesin Dm 200/20/10 Ml 10 Ml Syrup PO 10 ml Q6H MICHAEL Administration Piperacillin Sod/Tazobactam 50 mls @ 100 mls/hr 06/28/20 11:30 06/28/20 13:06 Sod 3.375 gm/ Sodium Chloride IV Infused Q6H MICHAEL Infusion Methylprednisolone Sodium Succinate 40 mg 06/28/20 13:00 06/28/20 12:51 Methylprednisolone Sod Succ/Pf 40 Mg/Ml Vial IVPUSH 40 mg Q12H MICHAEL Administration Nicotine Polacrilex 2 mg 06/27/20 20:02 06/27/20 20:55 Nicotine Polacrilex 2 Mg Lozenge BUCCAL 2 mg Q2H PRN Administration Nicotine Cravings Ondansetron HCl 4 mg 06/27/20 20:02 Ondansetron Hcl 4 Mg/2 Ml Vial IVPUSH Q8H PRN Nausea and Vomiting Sodium Chloride 3 ml 06/27/20 20:02 06/28/20 09:10 0.9 % Sodium Chloride Flush 3 Ml Syringe IVFLUSH 3 ml QSHIFT MICHAEL Administration Labs CBC & Chem 7: 06/28/20 05:21 06/28/20 05:21 Microbiology Microbiology Results: Microbiology 06/27/20 05:07 Blood - Venous Blood Culture - Preliminary No growth after 24 hours. 06/27/20 05:07 Blood - Venous Blood Culture - Preliminary No growth after 24 hours. Assessment and Plan (1) Asthma with exacerbation: Status: Acute (2) Cocaine abuse: Status: Acute (3) Pneumonia: Status: Acute (4) Substance abuse: Status: Acute Assessment and Plan: 39 year old man admitted with severe sepsis related to CAP. Severe sepsis due to pneumonia possible aspiration. Tachycardia, tachypnea, lactic acidosis, sepsis symptoms resolved,blood culture x2 negative. will continue patient on IV Zosyn, add cough medication and continue supportive care, follow CBC Elevatec troponin no chest pain, Inital troponin 54.9 with repeat 252.4 likely related to cocaine use, await cardiology input. mild tachycardia related to pneumonia and substance abuse withdrawal Used cocaine last night, possible vasospasm. hold beta-jose ramon, cardiology to follow, further treatment plan as per Cardiology. Echo showed no wall motion abnormality EF 60-65%, there is inter atrial septal aneurysm seen, no aortic valvel stenosis. Asthma exacerbation.will add Duonebs every 4 hours while awake,and iv solumedrol. supportive care Smoker. NRT, discussed smoking cessation. Substance abuse. Denied heroin use. Reported one episode of cocaine use last night. consult care team. DVT prophylaxis with Lovenox.
--- NOTE | 2020-06-28 18:23 | MHC.CARE ---
Consult requested for CARE team due to pt disclosing substance use and medically admitted. Pt reported using substances after a break up with his girlfriend and feeling stressed out . He denies needing help and indicates that he would reach out if in the near future if needed. T/W provided him with resources and encouraged him to reach out for support.
--- NOTE | 2020-06-28 20:02 | CA_ITS ---
Transthoracic Echocardiogram Patient (Last, First, Middle): Clemente Bullock, Gender: Male Date of : 1980 Age: 39 Procedure Date: 06/28/2020 Procedure Type: Transthoracic Echocardiogram Location: [facility] [place] Height: 172.72 cm Weight: 94.8 kg BSA: 2.08 m2 Heart Rate: bpm BP: 104 / 65 mmHg Meteorological Observer: Referring MD: Altagracia Castillo NP Symptoms: NSTEMI Conclusions: - Normal left ventricular size, thickness, systolic function, and wall motion. The visually estimated ejection fraction is between 60-65%. Diastolic function is normal for age. - Normal right ventricular cavity size and systolic function. - There is an interatrial septal aneurysm seen. Interatrial shunt cannot be excluded by color Doppler. Findings Left Ventricle Normal left ventricular size, thickness, systolic function, and wall motion. The visually estimated ejection fraction is between 60-65%. Diastolic function is normal for age. Right Ventricle Normal right ventricular cavity size and systolic function. Atria Both atria are normal in size. There is an interatrial septal aneurysm seen. Interatrial shunt cannot be excluded by color Doppler. Aortic Valve There is a normal trileaflet aortic valve. There is no aortic valve stenosis. There is no aortic valve regurgitation. Mitral Valve Normal mitral valve structure and function. There is no mitral valve regurgitation. There is no mitral valve stenosis. Pulmonic Valve Normal pulmonic valve structure and function. There is trace pulmonic valve regurgitation. Tricuspid Valve Normal tricuspid valve structure and function. There is trace tricuspid valve regurgitation. Normal right atrial pressure. There is no evidence of pulmonary hypertension. Great Vessels All visible segments of the aorta are normal in size. The visualized portions of the pulmonary artery and branches are normal. Venous The inferior vena cava is normal in size and collapses greater than 50% with inspiration. Pericardium/Pleural There is no evidence of pericardial effusion. Prior Study Comparison No prior study available for comparison. Measurements 2D Linear Measurements RVIDd: 3.03 RVIDd Index: 1.46 IVSd: 0.61 0.6-0.9/0.6-1.0 cm LVIDd: 4.92 3.9-5.3/4.2-5.9 cm LVIDd Index: 2.37 2.4-3.2/2.2-3.1 cm/m2 LVIDs: 3.10 2.0-3.6 cm LVPWd: 0.94 0.7-1.1 cm Ao Root: 2.50 2.1-3.5 cm LA Diam: 3.30 2.7-3.8/3.0-4.0 cm LAIDs Index: 1.59 1.5-2.3 cm/m2 LV Mass: 157.29 67-162/88-224 g LV Mass Index: 75.62 43-95/49-115 g/m2 LVOT Diam: 2.00 3.0+(-)1.3 cm 2D Systolic Function EF 4C: 54.80 >55% EF 2C: 73.30 >55% EF BiP: 61.90 >55% Mitral Valve MV Pk E: 0.83 MV PK A: 0.50 MV Decel Time: 155.00 E/A: 1.70 E'Lateral: 12.40 E'Medial: 12.00 E/E' Med: 6.90 E/E' Lat: 6.70 Aortic Valve AoV Pk Gildardo: 1.49 AoV Mn Gildardo: 1.09 AoV VTI: 0.25 AoV Pk Grad: 9.00 Aov Mn Grad: 5.00 COMFORT Cont.VTI: 2.59 LVOT LVOT Pk Gildardo: 1.24 LVOT Mn Gildardo: 0.84 LVOT VTI: 0.21 LVOT Pk Grad: 6.00 LVOT Mn Grad: 3.00 LVOT Diam: 2.00 LVOT Area: 3.14 Diastolic Function MV Pk E: 0.83 MV Pk A: 0.50 E/A: 1.70 E'Medial: 12.00 E/E' Med: 6.90 E' Laterial: 12.40 E/E' Lat: 6.70 Tricuspid Valve TR Pk Gildardo: 2.59 TR Pk Grad: 27.00 RA Press: 3.00 RVSP: 30.00 Great Vessels Aorta Ao Root-2D: 2.50 2.0-3.7 cm Ao Asc: 2.70 2.1-3.4 cm Ao Arch: 2.70 Updated in Other Vendor System with Status of Final Mohan Eldridge MD electronically signed on 06/28/2020 2:50:53 PM with status of Final
[2020-06-28 21:20] LABS: Hematocrit 43.7 % (42-52); Hemoglobin 14.5 g/dl (14.0-18.0)
[2020-06-29] VITALS: BP 129/67; PULSE 94; RESP 18; TEMP 36.7; O2SAT 97
[2020-06-29 03:31] VITALS: BP 124/81; PULSE 88; RESP 18; TEMP 36.4; O2SAT 98
[2020-06-29] MEDS: guaiFENesin DM 200/20/10 ML 10 ML SYRUP PO (05:29)
[2020-06-29] MEDS: Piperacillin Sodium/Tazobactam 3.375 GM in 0.9 % Sodium Chloride 50 ML IV ×2 (05:29→11:09)
[2020-06-29 06:20] LABS: MANUAL DIFF FLAG NO
[2020-06-29 06:39] LABS: Basophils Percent Auto 0.1 % (0-2); Hematocrit 43.1 % (42-52); Hemoglobin 14.7 g/dl (14.0-18.0); Imm Gran Abs Auto 0.06 X10*3/uL (0.00-0.03); Imm Gran Pct Auto 0.5 % (0.0-0.4); Lymphocytes Absolute Auto 1.3 X10*3/uL (1.2-4.9); Lymphocytes Percent Auto 10.6 % (20-40); Mean Corpuscular HGB Conc 34.1 g/dl (31.0-36.0); Mean Corpuscular Hemoglobin 30.2 pg (27.0-33.0); Mean Corpuscular Volume 88.7 fL (80-98); Mean Platelet Volume 9.5 fL (9.4-12.4); Monocytes Absolute Auto 0.5 X10*3/uL (0.1-1.2); Monocytes Percent Auto 4.2 % (2-11); Neutrophils Absolute Auto 10.5 X10*3/uL (2.0-8.3); Neutrophils Percent Auto 84.6 % (45-73); Platelet Count 323 X10*3/uL (160-400); Red Blood Count 4.86 X10*6/uL (4.60-5.80); Red Cell Distribution Width 11.8 % (11.0-16.0); White Blood Count 12.4 X10*3/uL (4.8-10.8)
[2020-06-29] MEDS: Albuterol/Iprat 2.5/0.5MG 3 ML AMPUL.NEB INHALE ×2 (07:16→11:26)
[2020-06-29 07:17] VITALS: PULSE 98; O2SAT 97
[2020-06-29 07:23] VITALS: BP 149/63; PULSE 89; RESP 17; TEMP 37.1; O2SAT 98
[2020-06-29] MEDS: Aspirin 81 MG TAB.CHEW PO (08:13)
[2020-06-29] MEDS: 0.9 % Sodium Chloride Flush 3 ML SYRINGE IVFLUSH (08:13)
[2020-06-29] MEDS: Acetaminophen 325 MG TABLET 650 MG PO (08:15)
--- NOTE | 2020-06-29 10:18 | PM.PNCARD ---
Subjective Subjective Principal diagnosis: CP, sob, Elevated Troponin level, atypical PNA Interval history: Cardiology follow up post echo and BNP check. Today he reports feeling OK. He feels his breathing is not all the way normal. He has been spitting up some bloody sputum. No report of CP, palpitation. Test results reviewed with him. Review of Systems Review of Systems Yes all other systems are reviewed and are negative Reports system reviewed and no additional complaints, except as documented and Denies dizziness Cardiovascular: Denies chest pain, Denies chest pain at rest, Denies chest pain with activity, Denies Epigastric Pain, Denies syncope, Denies lightheadedness, Denies radiating jaw, neck or arm pain, Denies palpitations and Denies orthopnea Respiratory: Denies chest congestion and Denies pain on inspiration Comments: Reports intermittent cough and bloody sputum Gastrointestinal: Reports no additional gastrointestinal complaints and Denies abdominal pain Musculoskeletal: Reports no additional musculoskeletal complaints Denies dizziness and Denies syncope Endocrine: Denies palpitations Physical Exam Vital Signs: Last Vital Signs Temp 98.7 F 06/29/20 07:23 Pulse 89 06/29/20 07:23 Resp 17 06/29/20 07:23 BP 149/63 H 06/29/20 07:23 Pulse Ox 98 06/29/20 07:23 Body Mass Index 31.8 Const General: cooperative, healthy appearing, no acute distress, alert and awake Orientation/consciousness: patient oriented x3 HENMT Head: Yes normal to inspection Neck Neck: Yes normal visual inspection and Yes no JVD Carotids: carotid upstroke abnormal Resp Other: rales noted in left lower lobe on exam Effort & Inspection: normal respiratory effort, able to speak in complete sentences and not labored Auscultation: clear to auscultation bilaterally, no rhonchi and no wheezes Cardio Palpation: normal PMI Rate: regular rate Rhythm: regular rhythm Heart sounds: S1 normal heart sound present and S2 normal heart sound present Peripheral pulses: Peripheral pulses 2+ throughout GI Inspection: Yes normal to inspection Skin General skin exam: no rashes or lesions noted Neuro General: patient oriented x3 Extrem General: Yes normal to inspection and No edema Results Labs and Meds Result diagrams: 06/29/20 05:37 06/28/20 05:21 Lab results: Laboratory Results - last 24 hr 06/28/20 06/28/20 06/29/20 05:21 20:54 05:37 WBC 14.0 H 12.4 H RBC 4.79 4.86 Hgb 14.2 14.5 14.7 Hct 43.4 43.7 43.1 MCV 90.6 88.7 MCH 29.6 30.2 MCHC 32.7 34.1 RDW 12.3 11.8 Plt Count 296 D 323 MPV 9.6 9.5 Immature Gran % (Auto) 0.4 0.5 H Neut % (Auto) 74.2 H 84.6 H Lymph % (Auto) 18.5 L 10.6 L [place] % (Auto) 6.8 4.2 Eos % (Auto) 0.0 0.0 Baso % (Auto) 0.1 0.1 Lymph # (Auto) 2.6 1.3 [place] # (Auto) 1.0 0.5 Eos # (Auto) 0.0 0.0 Baso # (Auto) 0.0 0.0 Abs Immat Gran (auto) 0.06 H 0.06 H Absolute Neuts (auto) 10.4 H 10.5 H Absolute Nucleated RBC 0.000 0.000 Nucleated RBC % (auto) 0.0 0.0 Progress Note: A&P Assessment and plan (1) Elevated troponin: Status: Acute Assessment and Plan: Admit with CP, sob, post substance use. EKG nonischemic. Troponin mild elevation. No cardiac hx. CXR with findings suggesting PNA. Echo shows EF 60-65%, RV normal, interatrial septal aneurysm, shunt can't be excluded. This finiing is incidental and no likely to contribute to his symptoms. BNP normal. No ACS, No HF. No longer having CP. Elevated Troponin most likely related to demand from infectious process. (2) Substance abuse: Status: Acute (3) Asthma with exacerbation: Status: Acute (4) Pneumonia: Status: Acute Assessment and Plan: Being managed by hospitalist Fall Risk Details Current Medications: Current Medications Generic Name Dose Route Start Last Admin Trade Name Freq PRN Reason Stop Dose Admin Acetaminophen 650 mg 06/27/20 20:02 06/29/20 08:15 Acetaminophen 325 Mg Tablet PO 650 mg Q6H PRN Administration Pain, Mild (Pain Scale 1-3) Albuterol/Ipratropium 3 ml 06/28/20 12:00 06/29/20 07:16 Albuterol/Iprat 2.5/0.5mg 3 Ml Ampul.Neb INHALE 3 ml RQ4H WHILE AWAKE MICHAEL Administration Aspirin 81 mg 06/28/20 09:00 06/29/20 08:13 Aspirin 81 Mg Tab.Chew PO 81 mg DAILY MICHAEL Administration Guaifenesin/Dextromethorphan 10 ml 06/28/20 11:30 06/29/20 05:29 Guaifenesin Dm 200/20/10 Ml 10 Ml Syrup PO 10 ml Q6H MICHAEL Administration Piperacillin Sod/Tazobactam 50 mls @ 100 mls/hr 06/28/20 11:30 06/29/20 06:23 Sod 3.375 gm/ Sodium Chloride IV Infused Q6H MICHAEL Infusion Methylprednisolone Sodium Succinate 40 mg 06/28/20 13:00 06/29/20 00:23 Methylprednisolone Sod Succ/Pf 40 Mg/Ml Vial IVPUSH 40 mg Q12H MICHAEL Administration Nicotine Polacrilex 2 mg 06/27/20 20:02 06/27/20 20:55 Nicotine Polacrilex 2 Mg Lozenge BUCCAL 2 mg Q2H PRN Administration Nicotine Cravings Ondansetron HCl 4 mg 06/27/20 20:02 Ondansetron Hcl 4 Mg/2 Ml Vial IVPUSH Q8H PRN Nausea and Vomiting Sodium Chloride 3 ml 06/27/20 20:02 06/29/20 08:13 0.9 % Sodium Chloride Flush 3 Ml Syringe IVFLUSH 3 ml QSHIFT MICHAEL Administration Time Spent With Patient Time: Total time spent is greater than 50% in coordination of care (as documented) at patient's floor/unit and/or counseling patient: Time with patient: 15 - 24 minutes Procedures Abscess I/D Date of Service: 06/29/20
[2020-06-29 11:02] VITALS: BP 140/63; PULSE 83; RESP 18; TEMP 36.3; O2SAT 99
[2020-06-29 11:27] VITALS: PULSE 100; O2SAT 97
--- NOTE | 2020-06-29 13:56 | MHC.CM.PN ---
Patient will be discharged home today no services. Patient will arrange for own transport.
--- NOTE | 2020-06-29 15:42 | PM.DS ---
DS: Providers Provider Date of admission: 06/27/20 11:23 Primary care physician: Unknown Physician Consults: 06/27/20 20:02 Consult to Cardiology Routine Consulting Provider: Riki Watts Reason for consultation: ELEVATED TROPONIN AND CHEST PAIN Has provider been notified: No 06/28/20 15:35 Consult to Care Team Routine Comment: Reason for consultation: substance abuse DS: Diagnosis Discharge Diagnosis (1) Elevated troponin: Status: Acute (2) Substance abuse: Status: Acute (3) Asthma with exacerbation: Status: Acute (4) Pneumonia: Status: Acute DS: Medications Discharge Medications Home Medications: Previous Rx's Medication Instructions Recorded albuterol sulfate 2 puff INHALATION Q4-6H PRN 30 06/29/20 Days #8.5 g amoxicillin-pot clavulanate 1 tab PO BID #14 tab 06/29/20 [Augmentin] aspirin 81 mg PO DAILY #30 tab 06/29/20 DS: Summary Hospital Course Hospital Course: history of presenting illness. 39-year-old man presenting to the ER with shortness of breath. Apparently he had used alcohol, heroin /cocaine and developed dyspnea. Apparently EMS reported his oxygen saturation in the 80s. He reported that he had been clean for some time but only was last night and seemed quite vague about it. He denied any recent fever, chills, nausea, vomiting, diarrhea. He did report a cough with green and brown sputum, blood tinged. Did report some right-sided chest pain near the axilla that he reported as sharp especially when taken a deep breath in and now. He was found to have an elevated D-dimer therefore chest CT was obtained which was negative for PE but did show a consolidation. He was noted to be tachycardic, tachypneic with elevated lactic acid. He was given 30 mL/kg IV fluid bolus, Zosyn, Rocephin, azithromycin. He will be admitted for further management treatment of severe sepsis related to community-acquired pneumonia versus aspiration pneumonia. hospital course 39 year old man admitted with severe sepsis related to CAP. Severe sepsis due to pneumonia possible aspiration on admission patient was tachycardic, tachypneic with an elevated lactic acid patient treated with IV Zosyn and vancomycin,blood culture x2 came back negative, all symptoms of sepsis have resolved, patient feeling significantly better WBC trending down no fevers no chills patient is ambulating with no difficulty, therefore being discharged home on by mouth Augmentin. 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 Eldridge recommended aspirin and outpatient follow-up with Cardiology. Asthma exacerbation. Patient was noted to have mild asthma/ possibly undiagnosed COPD exacerbation patient shortness of breath has improved he will be discharged home on albuterol inhaler and has been strongly recommended to abstain from smoking Tobacco use disorder, patient admits that he will quit smoking Substance abuse. Denied heroin use. Reported one episode of cocaine use last night, patient seen by care team an outpatient referrals provided. Time Spent with Patient Time attestation: Total time spent providing and/or coordinating discharge services: Physical Exam Vital Signs: Vital Signs: Last Vital Signs Temp 97.3 F 06/29/20 11:02 Pulse 100 06/29/20 11:27 Resp 18 06/29/20 11:02 BP 140/63 H 06/29/20 11:02 Pulse Ox 99 06/29/20 11:02 Body Mass Index 31.8 General patient resting comfortably in no acute distress. Neck supple no JVD. CVS regular rate rhythm, Respiratory lungs clear to auscultation, no respiratory distress, no wheeze, no rhonchi. Gastrointestinal abdomen soft, nontender, bowel sounds audible, Extremities no edema. Neuro nonfocal Skin no rash DS: Data Data Completed and Pending Labs on day of discharge: 06/27/20 04:48 ECG 12 lead EKG Stat EKG Documentation DIRECTED Albuterol Sulfate (0.083%) [Ventolin (0.083%)] 5 mg INHALE ONCE ONE Magnesium Sulfate/H2O 2 gm in 50 ml IV ONCE Naloxone HCl [Narcan] 0.2 mg IVPUSH STAT STA methylPREDNISolone Sod Succ/PF [SOLU-MedroL] 60 mg IVPUSH ONCE ONE 06/27/20 04:59 Azithromycin [Zithromax] 500 mg PO ONCE ONE cefTRIAXone sodium [Rocephin] 1 gm 0.9 % Sodium Chloride [Ns] 50 ml IV ONCE 06/27/20 05:06 Lactic Acid Stat Venous Blood Gas Stat 06/27/20 05:07 B Type Natriuretic Peptide Routine Basic Metabolic Panel Stat Complete Blood Count Auto Diff Stat D Dimer Stat Ethanol Stat Ferritin Stat Lactate Dehydrogenase Stat Lipase Stat Liver Panel Stat Magnesium Stat Procalcitonin Stat SARS-CoV2/FLU/RSV Stat Troponin-I High Sensitivity Stat 06/27/20 05:09 0.9 % Sodium Chloride [Ns] 2,850 ml IVCONT 2,850 mls/hr 06/27/20 05:15 0.9 % Sodium Chloride [Ns] 500 ml IV 500 mls/hr 06/27/20 05:17 cefTRIAXone sodium [Rocephin] 1 gm .ROUTE .STK-MED ONE 06/27/20 05:32 Add Laboratory Test Stat 06/27/20 05:40 CT angio chest PE protocol Stat 06/27/20 05:51 Consult Rx Perform Med Rec 1 each MISCELLANE ONCE PRN 06/27/20 06:11 0.9 % Sodium Chloride [Ns] 2,850 ml IVCONT 2,850 mls/hr 06/27/20 06:15 0.9 % Sodium Chloride [Ns] 500 ml IV 500 mls/hr 06/27/20 06:59 Piperacillin Sodium/Tazobactam [Zosyn] 3.375 gm 0.9 % Sodium Chloride [Ns] 50 ml IV ONCE 06/27/20 07:05 iohexoL 350 MG/ML [Omnipaque 350 MG/ML] 100 ml IV ONCE ONE 06/27/20 07:25 Add Laboratory Test Stat 06/27/20 07:41 ED Diet NOW 06/27/20 07:55 Piperacillin Sodium/Tazobactam [Zosyn] 3.375 gm IV .STK-MED ONE 06/27/20 10:34 Troponin-I High Sensitivity Stat ~Lactic Acid-LAB USE ONLY Stat 06/27/20 11:10 Code Status Routine Transfer Order Routine 06/27/20 14:53 Ibuprofen [Motrin] 800 mg PO ONCE ONE 06/27/20 18:19 Troponin-I High Sensitivity Stat 06/27/20 20:02 0.9 % Sodium Chloride Flush [NS Flush] 3 ml IVFLUSH QSHIFT Acetaminophen [Tylenol] 650 mg PO Q6H PRN Aspirin 325 mg PO ONCE ONE Nicotine Polacrilex [Nicorette] 2 mg BUCCAL Q2H PRN ondansetron HCL [Zofran] 4 mg IVPUSH Q8H PRN 06/27/20 20:02 Ambulate QSHIFT WHILE AWAKE IV insert/maintain Q4HR Intake and Output QSHIFTE Vital Signs QSHIFT 06/27/20 20:26 Flu Vacc [id number](6mos up)/PF [Fluarix Quad [id number]] 0.5 ml IM .ONCE ONE RT Smoking Initial Cessation ONCE 06/27/20 22:00 Enoxaparin Sodium [Lovenox] 95 mg SUBCUT Q12H Enoxaparin Sodium [Lovenox] 95 mg SUBCUT Q12H 06/28/20 05:21 Basic Metabolic Panel DAILY@0600 Complete Blood Count Auto Diff DAILY@0600 06/28/20 09:00 Aspirin 81 mg PO DAILY 06/28/20 11:30 Piperacillin Sodium/Tazobactam [Zosyn] 3.375 gm 0.9 % Sodium Chloride [Ns] 50 ml IV Q6H guaiFENesin DM 200/20/10 ML [Robitussin DM 200/20/10 ML] 10 ml PO Q6H 06/28/20 12:00 Albuterol/Iprat 2.5/0.5MG 3 ML [Duoneb] 3 ml INHALE RQ4H WHILE AWAKE 06/28/20 12:26 Piperacillin Sodium/Tazobactam [Zosyn] 3.375 gm IV .STK-MED ONE methylPREDNISolone Sod Succ/PF [SOLU-MedroL] 125 mg .ROUTE .STK-MED ONE 06/28/20 12:48 Add Laboratory Test Urgent 06/28/20 13:00 methylPREDNISolone Sod Succ/PF [SOLU-MedroL] 40 mg IVPUSH Q12H 06/28/20 17:33 Piperacillin Sodium/Tazobactam [Zosyn] 3.375 gm IV .STK-MED ONE 06/28/20 20:02 CA echo transthoracic complete Routine 06/28/20 20:54 Hemoglobin and Hematocrit Stat 06/28/20 23:43 Piperacillin Sodium/Tazobactam [Zosyn] 3.375 gm IV .STK-MED ONE 06/29/20 05:22 Piperacillin Sodium/Tazobactam [Zosyn] 3.375 gm IV .STK-MED ONE 06/29/20 05:37 Complete Blood Count Auto Diff Routine 06/29/20 11:06 Piperacillin Sodium/Tazobactam [Zosyn] 3.375 gm IV .STK-MED ONE 06/30/20 09:00 Aspirin Enteric Coated [Ecotrin] 81 mg PO DAILY Laboratory Last Values WBC 12.4 X10*3/uL (4.8-10.8) H 06/29/20 05:37 RBC 4.86 X10*6/uL (4.60-5.80) 06/29/20 05:37 Hgb 14.7 g/dl (14.0-18.0) 06/29/20 05:37 Hct 43.1 % (42-52) 06/29/20 05:37 MCV 88.7 fL (80-98) 06/29/20 05:37 MCH 30.2 pg (27.0-33.0) 06/29/20 05:37 MCHC 34.1 g/dl (31.0-36.0) 06/29/20 05:37 RDW 11.8 % (11.0-16.0) 06/29/20 05:37 Plt Count 323 X10*3/uL (160-400) 06/29/20 05:37 MPV 9.5 fL (9.4-12.4) 06/29/20 05:37 Immature Gran % (Auto) 0.5 % (0.0-0.4) H 06/29/20 05:37 Neut % (Auto) 84.6 % (45-73) H 06/29/20 05:37 Lymph % (Auto) 10.6 % (20-40) L 06/29/20 05:37 [place] % (Auto) 4.2 % (2-11) 06/29/20 05:37 Eos % (Auto) 0.0 % (0-4) 06/29/20 05:37 Baso % (Auto) 0.1 % (0-2) 06/29/20 05:37 Lymph # (Auto) 1.3 X10*3/uL (1.2-4.9) 06/29/20 05:37 [place] # (Auto) 0.5 X10*3/uL (0.1-1.2) 06/29/20 05:37 Eos # (Auto) 0.0 X10*3/uL (0.0-0.4) 06/29/20 05:37 Baso # (Auto) 0.0 X10*3/uL (0.0-0.2) 06/29/20 05:37 Abs Immat Gran (auto) 0.06 X10*3/uL (0.00-0.03) H 06/29/20 05:37 Absolute Neuts (auto) 10.5 X10*3/uL (2.0-8.3) H 06/29/20 05:37 Absolute Nucleated RBC 0.000 X10*3/uL (0.0-0.012) 06/29/20 05:37 Nucleated RBC % (auto) 0.0 /100WBC (0.0-0.2) 06/29/20 05:37 D-Dimer 908 NG/ML 06/27/20 05:07 VBG pH 7.35 (7.32-7.43) 06/27/20 05:06 VBG pCO2 44 mmhg 06/27/20 05:06 VBG pO2 173 mmhg 06/27/20 05:06 VBG HCO3 24 mmol/L 06/27/20 05:06 VBG O2 Saturation 99.1 % 06/27/20 05:06 VBG Base Excess -1.8 mmol/L 06/27/20 05:06 Sodium 137 mmol/L (135-145) 06/28/20 05:21 Potassium 4.4 mmol/l (3.3-5.1) 06/28/20 05:21 Chloride 106 mmol/L (96-108) 06/28/20 05:21 Carbon Dioxide 23 mmol/L (22-29) 06/28/20 05:21 Anion Gap 12 (12-20) 06/28/20 05:21 BUN 27 mg/dL (9-16) H 06/28/20 05:21 Creatinine 0.79 mg/dL (0.5-1.4) 06/28/20 05:21 Estim Creat Clear Calc 143.1 06/28/20 05:21 Estimated GFR > 60 06/28/20 05:21 Random Glucose 89 mg/dL (60-115) D 06/28/20 05:21 Lactic Acid 2.7 mmol/L (0.5-2.0) H* 06/27/20 05:06 Lactic Acid Fup @ 2Hr 1.5 mmol/L (0.5-2.0) 06/27/20 10:34 Calcium 8.4 mg/dL (8.4-10.2) D 06/28/20 05:21 Magnesium 2.3 mg/dL (1.6-2.6) 06/27/20 05:07 Ferritin 90 ng/mL (20-250) 06/27/20 05:07 Total Bilirubin 0.4 mg/dL (0.0-1.0) 06/27/20 05:07 Direct Bilirubin 0.3 mg/dL (0.0-0.5) 06/27/20 05:07 AST 44 U/L (5-37) H 06/27/20 05:07 ALT 39 U/L (0-40) 06/27/20 05:07 Alkaline Phosphatase 69 U/L (39-117) 06/27/20 05:07 Lactate Dehydrogenase 305 U/L (118-273) H 06/27/20 05:07 Troponin I High Sens 252.4 ng/L (<3.5-35.0) H 06/27/20 18:19 B-Natriuretic Peptide 19 pg/mL (<100) 06/27/20 05:07 Total Protein 7.2 g/dL (6.5-8.0) 06/27/20 05:07 Albumin 4.2 g/dL (3.5-5.0) 06/27/20 05:07 Lipase 47 U/L (8-78) 06/27/20 05:07 Procalcitonin 0.27 ng/mL 06/27/20 05:07 Ethyl Alcohol < 10 mg/dL 06/27/20 05:07 Coronavirus (PCR) NEGATIVE (Negative) 06/27/20 05:07 Influenza Type A (PCR) NEGATIVE (Negative) 06/27/20 05:07 Influenza Type B (PCR) NEGATIVE (Negative) 06/27/20 05:07 RSV RNA Qual (PCR) NEGATIVE (Negative) 06/27/20 05:07 Preliminary micro results at discharge 06/27/20 05:07 Blood Culture - Preliminary Blood - Venous No growth after 48 hours. 06/27/20 05:07 Blood Culture - Preliminary Blood - Venous No growth after 48 hours. Discharge Plan Discharge Patient Disposition: Home, Self-Care Referrals: Physician,Unknown [Primary Care Provider] - Discharge Medications: New amoxicillin-pot clavulanate [Augmentin] 875-125 mg tablet 1 tab PO BID Qty: 14 RF: 0 albuterol sulfate 90 mcg/actuation HFA aerosol inhaler 2 puff inhalation Q4-6H PRN (Reason: shortness of breath or wheezing) 30 Days Qty: 8.5 RF: 0 aspirin 81 mg Tablet,Chewable 81 mg PO DAILY Qty: 30 RF: 0 Discharge Orders: Discharge Order (Routine); Ordered 06/29/20 Ordered By: Ella Ascencio Diet: regular diet Activity on Discharge: As tolerated Discharge Date/Time: 06/29/20 14:48 Visit Report Forms: Patient Portal Discharge page Care Plan Goals: strongly advised to abstain from smoking and illicit drug use. Health Concerns: outpatient follow-up with primary care physician Plan of Treatment: continue medications as prescribed, no tobacco use, no illicit drug use recommended.
== END 2020-06-29 14:48 | disposition home or self-care (01) | DRG 720 ==
LOC: HO.ED 06:19 → HO.IMC 17:52
PROVIDERS: Internal Medicine; Internal Medicine Cardiovascular Disease; Nurse Practitioner Acute Care; Admitting Provider Internal Medicine; Emergency Provider Emergency Medicine; Visit Provider Hospitalist
DX: A41.9 Sepsis, unspecified organism (principal); J69.0 Pneumonitis due to inhalation of food and vomit; J45.901 Unspecified asthma with (acute) exacerbation; R65.20 Severe sepsis without septic shock; F17.210 Nicotine dependence, cigarettes, uncomplicated; Z71.6 Tobacco abuse counseling; F14.10 Cocaine abuse, uncomplicated; Z20.828 Contact with and (suspected) exposure to other viral communicable diseases; R79.89 Other specified abnormal findings of blood chemistry; Z23 Encounter for immunization; Z79.82 Long term (current) use of aspirin; Z79.899 Other long term (current) drug therapy
CPT/HCPCS: 0241U; 36415; 71275; 80048; 80076; 80320; 82728; 82803; 83605; 83615; 83690; 83735; 83880; 84145; 84484; 85014; 85018; 85025; 85379; 87040; 90686; 93005; 93306; 94640; 96361; 96365; 96375; 99219; 99285; 99291; J0696; J1650; J2543; J2920; J2930; J3475; Q9967

== ENCOUNTER 2020-09-24 15:46 | Emergency (ER) | payer OTHER, SELFPAY ==
[2020-09-24 16:08] VITALS: BP 145/96; PULSE 116; RESP 18; TEMP 36.6; O2SAT 98; BMI 32.6
== END 2020-09-24 20:30 | disposition left against medical advice (07) ==
PROVIDERS: Emergency Provider Emergency Medicine
DX: Z04.9 Encounter for examination and observation for unspecified reason (principal)
CPT/HCPCS: 99281; 99282

== ENCOUNTER 2020-09-27 11:40 | Emergency (ER) | payer OTHER, SELFPAY ==
[2020-09-27 12:17] VITALS: BP 136/92; PULSE 84; RESP 16; TEMP 36.8; O2SAT 100; BMI 31.9
--- NOTE | 2020-09-27 14:26 | MHC.RECOVRN ---
Recovery Support Note: T/w met with pt to discuss desire for ATS. Pt reports heroin, nasal, 5-6 bags daily x 2 months. Pt reports having been incarcerated for 8 years, released in April. Pt reports heroin use sporadically while incarcerated. Pt would like to receive treatment for OUD. Pt states I want something where I don't have to stay. I have work. Discussion and resources regarding IOP and outpatient tx provided. Pt expressed interest in [facility]. After education, pt stated desire for Suboxone. Pt reports withdrawal symptoms, COWS score 11. T/w informed pt about walk in hours at the [facility], pt would like to wait in ED to be seen today and not wait until tomorrow. Case discussed with Darlyn Sherwood APRN.
--- NOTE | 2020-09-27 15:52 | ED.MEDCLEAR ---
HPI - Medical Clearance General Chief complaint: Medical Clearance <HUDSON Ro - Last Filed: 09/27/20 16:48> Stated complaint: detox from drugs <HUDSON Ro - Last Filed: 09/27/20 16:48> Time Seen by Provider: 09/27/20 14:01 <HUDSON Ro - Last Filed: 09/27/20 16:48> Source: patient <HUDSON Ro - Last Filed: 09/27/20 16:48> Mode of arrival: ambulatory <HUDSON Ro - Last Filed: 09/27/20 16:48> Limitations: no limitations <HUDSON Ro - Last Filed: 09/27/20 16:48> History of Present Illness HPI Narrative: 39 y/o male with history of polysubstance abuse including cocaine, and IN heroin presenting with opiate withdrawal and wishing to quit. He would like to get started on Suboxone. He is refusing detox placement at this time due to the fact that he has a new job. He is reporting body aches and pain, abdominal cramping and diarrhea. <HUDSON Ro - Last Filed: 09/27/20 16:48> MD complaint: other (opiate withdrawal ) <HUDSON Ro - Last Filed: 09/27/20 16:48> Onset (ago): hour(s) <HUDSON Ro - Last Filed: 09/27/20 16:48> Alleged Intoxication: No <HUDSON Ro - Last Filed: 09/27/20 16:48> Compliant with Home Medications: Yes <HUDSON Ro - Last Filed: 09/27/20 16:48> Traumatic Symptoms: denies traumatic injury <HUDSON Ro - Last Filed: 09/27/20 16:48> Associated Symptoms: palpitations, diaphoresis, headaches and other (diarrhea) <HUDSON Ro - Last Filed: 09/27/20 16:48> Treatments Prior to Arrival: none <HUDSON Ro - Last Filed: 09/27/20 16:48> Related Information Home medications: Previous Rx's Medication Instructions Recorded albuterol sulfate 2 puff INHALATION Q4-6H PRN 30 06/29/20 Days #8.5 g amoxicillin-pot clavulanate 1 tab PO BID #14 tab 06/29/20 [Augmentin] aspirin 81 mg PO DAILY #30 tab 06/29/20 <HUDSON Ro - Last Filed: 09/27/20 16:48> Allergies/Adverse reactions: Allergies Allergy/AdvReac Type Severity Reaction Status Date / Time No Known Allergies Allergy Verified 09/27/20 12:24 <HUDSON Ro - Last Filed: 09/27/20 16:48> Review of Systems Review of Systems: Constitutional: No Fever, No Chills ENT/Mouth: No sore throat, No Rhinorrhea, No Swallowing Difficulty Cardiovascular: No Chest Pain, No SOB, No Orthopnea, No Edema Respiratory: No Cough, No Sputum, No Wheezing, No dyspnea Gastrointestinal: No Nausea, No Vomiting, + Diarrhea, + abdominal Pain, No Hematochezia, No Melena Genitourinary: No Dysuria, No Urinary Frequency, No Hematuria Musculoskeletal: + joint pain, + Myalgias Skin: No Skin Lesions, No rash Neuro: No Weakness, No Numbness, No Dizziness, + Headache Psych: + Anxiety/Panic, + Depression, No SI Heme/Lymph: No Bruising, No Lymphadenopathy <HUDSON Ro Last Filed: 09/27/20 16:48> [facility] Past Medical History Attestation statement: The following information was validated with the patient. <HUDSON Ro - Last Filed: 09/27/20 16:48> Medical History: Medical History Asthma Asthma with exacerbation Elevated troponin Heroin overdose Latent tuberculosis Substance abuse <HUDSON Ro - Last Filed: 09/27/20 16:48> Social History Social History: Social History (Updated 06/27/20 @ 04:56 by Sally Madera DO) Household Members: Spouse Housing: Apartment Alcohol intake: never Smoking Status: Current every day smoker Tobacco Type: Cigarette Packs Per Day: 1.5 Cigarettes Per Day: 30.0 Second Hand Smoke Exposure: No Substance Use Type: Crack/Cocaine and Heroin Advance Directives: No Advance Directives Information Provided: No service: No Current occupational status: unemployed <HUDSON Ro - Last Filed: 09/27/20 16:48> Physical Exam Vital Signs: Vital Signs: Last Vital Signs Temp 98.3 F 09/27/20 12:17 Pulse 84 09/27/20 12:17 Resp 16 09/27/20 12:17 BP 136/92 H 09/27/20 12:17 Pulse Ox 100 09/27/20 12:17 Body Mass Index 31.9 Appearance: Alert. Oriented X3. No acute distress. Eyes: Pupils equal, round and reactive to light. ENT: Pharynx normal. Neck: Normal inspection. Neck supple. CVS: Normal heart rate and rhythm. Pulses normal. Respiratory: No respiratory distress. Breath sounds normal. Abdomen: Soft and nontender. +BS x4 Skin: Skin warm and dry. Normal skin color. Normal skin turgor. No rashes. Extremities: No lower extremity edema. Neuro: Oriented X 3. No motor deficit. No sensory deficit. <HUDSON Ro - Last Filed: 09/27/20 16:48> Vital Signs: Last Vital Signs Temp 98.3 F 09/27/20 12:17 Pulse 84 09/27/20 12:17 Resp 16 09/27/20 12:17 BP 136/92 H 09/27/20 12:17 Pulse Ox 100 09/27/20 12:17 Body Mass Index 31.9 <Maycol Moody MD - Last Filed: 10/19/20 06:45> Course Course Course Narrative: 39 y/o male presenting with opiate withdrawal hoping to start on Suboxone. GAVIN Pena who works with Darlyn Sherwood at the [facility] has provided the patient information on walk in time to present to the clinic tomorrow to get started on Suboxone. He is requesting a dose of Suboxone now. His COWS is 9-11. He states his last use of heroin was yesterday. Will check Utox and give 1 dose of Suboxone here 03/07. He will follow up at the [facility] tomorrow for walk in appointment. <HUDSON Ro - Last Filed: 09/27/20 16:48> I have reviewed the chart <Maycol Moody MD - Last Filed: 10/19/20 06:45> MDM - Medical Clearance Lab Data Labs: Lab Results 09/27/20 Range/Units 16:42 Urine Opiates Screen Not Detected (Not Detect) Ur Barbiturates Screen Not Detected (Not Detect) Ur Phencyclidine Scrn Not Detected (Not Detect) Ur Amphetamines Screen Not Detected (Not Detect) U Benzodiazepines Scrn Not Detected (Not Detect) Urine Cocaine Screen Not Detected (Not Detect) U Marijuana (THC) Screen Not Detected (Not Detect) <HUDSON Ro - Last Filed: 09/27/20 16:48> Lab Results 09/27/20 Range/Units 16:42 Urine Opiates Screen Not Detected (Not Detect) Ur Barbiturates Screen Not Detected (Not Detect) Ur Phencyclidine Scrn Not Detected (Not Detect) Ur Amphetamines Screen Not Detected (Not Detect) U Benzodiazepines Scrn Not Detected (Not Detect) Urine Cocaine Screen Not Detected (Not Detect) U Marijuana (THC) Screen Not Detected (Not Detect) <Maycol Moody MD - Last Filed: 10/19/20 06:45> Discharge Plan Discharge Clinical Impression: Substance abuse, Opiate withdrawal <HUDSON Ro - Last Filed: 09/27/20 16:48> Patient Disposition: Home, Self-Care <HUDSON Ro - Last Filed: 09/27/20 16:48> Instructions: Opioid Use Disorder (ED) <HUDSON Ro - Last Filed: 09/27/20 16:48> Additional Instructions: DO NOT USE HEROIN. Follow up tomorrow between the hours of 10am-12pm at the [facility] to get started on a Suboxone regimen. If you have worsening symptoms come back to the ER for further evaluation. <HUDSON Ro - Last Filed: 09/27/20 16:48> Prescriptions: No Action amoxicillin-pot clavulanate [Augmentin] 875-125 mg tablet 1 tab PO BID Qty: 14 RF: 0 albuterol sulfate 90 mcg/actuation HFA aerosol inhaler 2 puff inhalation Q4-6H PRN (Reason: shortness of breath or wheezing) 30 Days Qty: 8.5 RF: 0 aspirin 81 mg Tablet,Chewable 81 mg PO DAILY Qty: 30 RF: 0 <HUDSON Ro - Last Filed: 09/27/20 16:48> Referrals: Darlyn Sherwood, DELIVERY COORDINATOR [Nurse Practitioner] - 1 day <HUDSON Ro - Last Filed: 09/27/20 16:48> Interventions: ED Discharge Assessment Last Done: 09/27/20 17:05 <HUDSON Ro - Last Filed: 09/27/20 16:48> Discharge Date/Time: 09/27/20 17:06 <HUDSON Ro - Last Filed: 09/27/20 16:48>
[2020-09-27] MEDS: Buprenorphine/Naloxone 8/2 mg FILM 1 FILM SUBLINGUAL (16:50)
[2020-09-27 17:33] LABS: Amphetamine Screen Urine Not Detected (Not Detect); Barbiturates, Urine Not Detected (Not Detect); Benzodiazepines Screen Urine Not Detected (Not Detect); Cannabinoid Screen Urine Not Detected (Not Detect); Cocaine Screen Urine Not Detected (Not Detect); Opiate Screen Urine Not Detected (Not Detect); Phencyclidine Screen Urine Not Detected (Not Detect)
== END 2020-09-27 17:06 | disposition home or self-care (01) ==
PROVIDERS: Physician Assistant; Emergency Provider Emergency Medicine
DX: F11.13 Opioid abuse with withdrawal (principal); F14.10 Cocaine abuse, uncomplicated; R10.9 Unspecified abdominal pain; R19.7 Diarrhea, unspecified; Z79.82 Long term (current) use of aspirin; Z79.899 Other long term (current) drug therapy; J45.909 Unspecified asthma, uncomplicated; Z22.7 Latent tuberculosis; F17.210 Nicotine dependence, cigarettes, uncomplicated
CPT/HCPCS: 80307; 99283

== ENCOUNTER 2020-09-29 15:46 | Emergency (ER) | payer OTHER, SELFPAY | END 2020-09-29 20:15 | disposition left against medical advice (07) | PROVIDERS: Emergency Provider Emergency Medicine | DX: M54.9 Dorsalgia, unspecified (principal); S69.90XA Unspecified injury of unspecified wrist, hand and finger(s), initial encounter; X58.XXXA Exposure to other specified factors, initial encounter; F11.10 Opioid abuse, uncomplicated; F17.210 Nicotine dependence, cigarettes, uncomplicated; Y93.9 Activity, unspecified; Y92.9 Unspecified place or not applicable; Y99.9 Unspecified external cause status | CPT/HCPCS: 99281 ==

== ENCOUNTER 2021-09-16 13:24 | Emergency (ER) | payer OTHER, SELFPAY ==
[2021-09-16 15:13] VITALS: BP 121/73; PULSE 111; RESP 20; TEMP 36.9; O2SAT 95; BMI 30.4
[2021-09-16 15:44] LABS: COVID-19 Test Negative (Negative); IDNOW Serial# 9DD0AD1C
[2021-09-16 19:39] LABS: Amphetamine Screen Urine Not Detected (Not Detect); Barbiturates, Urine Not Detected (Not Detect); Benzodiazepines Screen Urine Not Detected (Not Detect); Cannabinoid Screen Urine Not Detected (Not Detect); Cocaine Screen Urine POSITIVE (Not Detect); Fentanyl, urine POSITIVE (Not Detect); Opiate Screen Urine POSITIVE (Not Detect); Phencyclidine Screen Urine Not Detected (Not Detect)
--- NOTE | 2021-09-16 23:20 | ED_ITS ---
HPI - General Adult General Chief complaint: ETOH/Substance Use Stated complaint: HEROIN WITHDRAWLS Time Seen by Provider: 09/16/21 21:52 Source: patient Mode of arrival: ambulatory Limitations: no limitations History of Present Illness HPI narrative: 40-year-old male presents for heroin and fentanyl withdrawals. Patient is seeking detox. Last use was over 36 hours ago. Onset (ago): month(s) (1) Location: abdomen Radiation: non-radiation Severity: moderate Severity scale (1-10): 6 Quality: aching and constant Pain Consistency: constant Relieving factors: none Exacerbating factors: eating and movement Associated symptoms: diaphoresis, fever/chills and loss of appetite Treatments prior to arrival: none Related Data Previous Rx's Medication Instructions Recorded albuterol sulfate 90 mcg/actuation 2 puff INHALATION Q4-6H PRN 30 06/29/20 aerosol inhaler Days #8.5 g amoxicillin 875 mg-potassium 1 tab PO BID #14 tab 06/29/20 clavulanate 125 mg tablet (Augmentin) aspirin 81 mg chewable tablet 81 mg PO DAILY #30 tab 06/29/20 Allergies Allergy/AdvReac Type Severity Reaction Status Date / Time No Known Allergies Allergy Verified 09/27/20 12:24 Review of Systems Review of Systems: Constitutional: Positive withdrawal symptoms, No Fever, No Chills ENT/Mouth: No sore throat, No Rhinorrhea Eyes: No Eye Pain, No Swelling, No Redness Cardiovascular: No Chest Pain, No SOB Respiratory: No Cough, No Sputum Gastrointestinal: No Nausea, No Vomiting, No Diarrhea, No abdominal Pain Genitourinary: No Dysuria, No Hematuria Musculoskeletal: No joint pain, No Myalgias, No Joint Swelling Skin: No Skin Lesions, No rash Neuro: No Weakness, No Numbness, No Loss of Consciousness, No Dizziness, No Headache Psych: Positive heroin, fentanyl and cocaine abuse, No Anxiety, No Depression, No SI/HI/AH/VH Heme/Lymph: No Bruising, No Bleeding,No Lymphadenopathy Endocrine: No Polyuria, No Polydipsia Yes all other systems are reviewed and are negative [facility] Past Medical History Attestation statement: The following information was validated with the patient. Source: old records reviewed Medical History Asthma Asthma with exacerbation Elevated troponin Heroin overdose Latent tuberculosis Substance abuse Social History Social History Household Members: Spouse Housing: Apartment Do you presently have visiting nurse or other home services: No Alcohol intake: never Cigarette Packs Per Day: 1.5 Cigarettes Per Day: 30.0 Second Hand Smoke Exposure: No Substance Use Type: Crack/Cocaine and Heroin Advance Directives: No Advance Directives Information Provided: Yes service: No Current occupational status: unemployed Physical Exam ED Vital Signs: Vital Signs - 24 hr 09/16/21 15:13 Temperature 98.4 F Pulse Rate 111 H Respiratory Rate 20 Blood Pressure 121/73 Pulse Oximetry 95 BMI result Body Mass Index 30.4 Appearance: Alert. Oriented X3. Mild distress. Opioid withdrawal symptoms. Cooperative and polite at this time. Eyes: Pupils equal, round and reactive to light. Sclera nonicteric. EOMI. ENT: Pharynx normal. Moist mucous membranes. Neck: Normal inspection. Neck supple. CVS: Tachycardic heart rate and rhythm. Pulses normal. Respiratory: No respiratory distress. Breath sounds normal. Abdomen: Soft and nontender. Skin: Skin warm and dry. Normal skin color. Normal skin turgor. Extremities: Gait well-balanced full coordinated. Neuro: No motor deficit. No sensory deficit. Cranial nerves 2-12 intact Course Course Course Narrative: 40-year-old male presents for heroin fentanyl and cocaine withdrawal. Patient is requesting detox. This patient waited for 10 hours in the emergency department waiting room for this service. Will start Suboxone 11/04, give Tylenol and Zofran for supportive measures. Discussed with care team, recovery coaches are not present at this facility at this moment, care team will leave a note for recovery to assist patient in finding detox facilities. Patient stated he had been clean for approximately 8 years, about 1 month ago he started using again. Has been using heroin, fentanyl, and cocaine multiple times a day. Patient stated that when he was clean developed a good life, has a good job, home and car. Patient states that he is desperately seeking help because he does not want to lose all that he has gained. 01:06 patient states that he feels some relief with the medications given. Physician observation started at this time pending detox placement. Medical Decision Making MDM Narrative Medical decision making narrative: Opioid withdrawal Differential Diagnosis Differential Diagnosis: Withdrawals Medical Records Medical records reviewed: Yes I reviewed the patient's medical records. Lab Data Lab results reviewed: Yes I reviewed the patient's lab results. Labs: Lab Results 09/16/21 09/16/21 Range/Units 15:18 19:12 Urine Opiates Screen POSITIVE H (Not Detect) Urine Fentanyl Screen POSITIVE H (Not Detect) Ur Barbiturates Screen Not Detected (Not Detect) Ur Phencyclidine Scrn Not Detected (Not Detect) Ur Amphetamines Screen Not Detected (Not Detect) U Benzodiazepines Scrn Not Detected (Not Detect) Urine Cocaine Screen POSITIVE H (Not Detect) U Marijuana (THC) Screen Not Detected (Not Detect) COVID-19 (MARY) Negative (Negative) COVID-19 Clin Com See Note Discharge Plan Discharge Clinical Impression: Substance abuse Patient Disposition: Still a Patient Instructions: Polysubstance Abuse (ED) Additional Instructions: Please follow-up with detox. Thank you for choosing this emergency department for evaluation. Please foll ow-up with primary care physician as needed. Return to the emergency department for any new, concerning, or worsening symptoms. Prescriptions: No Action amoxicillin-pot clavulanate [Augmentin] 875-125 mg tablet 1 tab PO BID Qty: 14 0RF albuterol sulfate 90 mcg/actuation HFA aerosol inhaler 2 puff inhalation Q4-6H PRN (Reason: shortness of breath or wheezing) 30 Days Qty: 8.5 0RF aspirin 81 mg Tablet,Chewable 81 mg PO DAILY Qty: 30 0RF
[2021-09-17] MEDS: Buprenorphine/Naloxone 4/1 mg FILM 1 FILM SUBLINGUAL (00:33)
--- NOTE | 2021-09-17 00:35 | PC.NURSE ---
pt refusing tylenol and zofran and took Suboxone as per emar.
--- NOTE | 2021-09-17 02:28 | PC.NURSE ---
PT AWAKE AND UP TO RESTROOM W/O DIFFICULTY. PT REMAIN IN NAD, WILL CONTINUE TO MONTIOR PT.
--- NOTE | 2021-09-17 06:29 | PC.NURSE ---
MED REC DONE PT AWATING TO GO TO DETOX. PT IN NAD. PT AWAKE, RESPIRATIONS EASY, N/L. SKIN W/D.
--- NOTE | 2021-09-17 08:23 | PC.NURSE ---
Ramakrishna care team at bedside talking to pt
--- NOTE | 2021-09-17 08:32 | MHC.RECOVSUP ---
Recovery Support note: Patient is a 40 year old Czech speaking male who presented to [facility] seeking detox. Patient reports last using heroin over 36 hours ago and patient was experiencing symptoms of opiate withdrawal. Patient reports he was sober for 8 years and relapsed about a month ago and has been using daily since. Patient reports he has to go to detox as he is under supervision and is being told that he must complete treatment. Patient is willing to go anywhere. Discussed ATS with patient and educated patient regarding what treatment will look like. Patient is not on Suboxone or methadone however received Suboxone today to treat his withdrawal. Patient reports improvement in his symptoms after taking the Suboxone. This sports book writer will refer patient to ATS facilities. Discussed case with patient's ED provider.
[2021-09-17 08:37] VITALS: BP 144/91; PULSE 81; RESP 18; O2SAT 96
[2021-09-17] MEDS: Buprenorphine/Naloxone 8/2 mg FILM 1 FILM SUBLINGUAL (08:40)
--- NOTE | 2021-09-17 09:01 | PC.NURSE ---
pt changed over into hospital attire, and pt's belongings put into decon room, pt is keeping vr pancho system is being left at the bedside and pt is also keeping his phone
[2021-09-17 11:33] VITALS: BP 116/64; PULSE 78; RESP 16; TEMP 36.9; O2SAT 97
--- NOTE | 2021-09-17 12:52 | PC.NURSE ---
pt to discharge to [facility], provider being notified by angelika
--- NOTE | 2021-09-17 13:10 | MHC.RECOVSUP ---
Recovery Support note: Ana accepted to [facility] for AT[facility]. Intake complete. Patient provided with address and plans to transport himself to the facility.
== END 2021-09-17 12:58 | disposition home or self-care (01) ==
PROVIDERS: Emergency Provider Emergency Medicine
DX: F11.10 Opioid abuse, uncomplicated (principal); F14.10 Cocaine abuse, uncomplicated; F19.10 Other psychoactive substance abuse, uncomplicated; F17.200 Nicotine dependence, unspecified, uncomplicated; R00.0 Tachycardia, unspecified; Z20.822 Contact with and (suspected) exposure to COVID-19
CPT/HCPCS: 80307; 87635; 99285

== ENCOUNTER 2022-03-16 11:13 | Emergency (ER) | payer OTHER, SELFPAY ==
[2022-03-16 11:17] VITALS: BP 147/83; PULSE 103; O2SAT 98
--- NOTE | 2022-03-16 11:30 | ECG_ITS ---
Test Reason : SYNCOPE Blood Pressure : / mmHG Vent. Rate : 095 BPM Atrial Rate : 095 BPM P-R Int : 166 ms QRS Dur : 072 ms QT Int : 344 ms P-R-T Axes : 051 027 024 degrees QTc Int : 432 ms Normal sinus rhythm Possible Left atrial enlargement Borderline ECG No significant changes when compared with the previous EKG of 27 jun 2020 Referred By: Jessica Madera Electronically Signed By:VANESSA MENDIOLA
[2022-03-16 11:32] VITALS: BP 145/77; PULSE 110; RESP 18; TEMP 37; O2SAT 98; BMI 28.1
[2022-03-16] MEDS: ondansetron HCL 4 MG/2 ML VIAL IVPUSH (11:32)
--- NOTE | 2022-03-16 11:33 | ED.OVERDOSE ---
HPI - Overdose General Chief Complaint: Syncope Stated Complaint: overdose Time Seen by Provider: 03/16/22 11:19 Source: patient Mode of arrival: EMS Limitations: other (vague historian, not answering all questions) History of Present Illness HPI Narrative: 41 yo male with hx of pneumonia, prior substance abuse was seen acting erratically on camera co-workers present then patient became unresponsive. the patient was then given 8mg IN narcan and woke up with vomiting. He denied drug abuse to EMS but here admits to using heroin. He does not want methadone/suboxone and refuses SUDE evaluation. complaint: accidental overdose Onset (ago): minute(s) (just prior to arrival ) Context: Accidental Overdose: wanted to get high Associated symptoms: nausea/vomiting (on arrival heavy vomiting some mild coffee grounds) Treatments Prior to Arrival: narcan (8mg IN narcan) and IV fluids Related Data Allergies Allergy/AdvReac Type Severity Reaction Status Date / Time No Known Allergies Allergy Verified 09/27/20 12:24 Review of Systems Review of Systems: Constitutional : No Weight loss, No Fever, No Chills ENT/Mouth : No sore throat, No Rhinorrhea Eyes: No Swelling, No Redness Cardiovascular : No Chest Pain, No SOB, NoEdema Respiratory : No Cough, No Sputum, No Wheezing Gastrointestinal : Positive Nausea, Positive Vomiting, no Diarrhea, positive abdominal Pain, No Hematochezia, No Melena Genitourinary : No Dysuria, No Urinary Frequency, No Hematuria, No Urgency Musculoskeletal : No joint pain, No Myalgias, No Joint Swelling Skin : No Skin Lesions, No rash Neuro : No Weakness, No Numbness, No Dizziness, No Headache Psych : No Anxiety/Panic, No Depression Heme/Lymph: No Bruising, No Lymphadenopathy Endocrine : No Polyuria, No Polydipsia All other systems reviewed and are negative. [facility] Past Medical History Attestation statement: The following information was validated with the patient. Medical History Asthma Asthma with exacerbation Elevated troponin Heroin overdose Latent tuberculosis Substance abuse Social History Social History Household Members: Spouse Housing: Apartment Do you presently have visiting nurse or other home services: No Alcohol intake: never Patient Tobacco Use Status: Current everyday Tobacco user Cigarette Packs Per Day: 1.5 Cigarettes Per Day: 30.0 Second Hand Smoke Exposure: No Substance Use Type: Heroin Advance Directives: No Advance Directives Information Provided: No service: No Current occupational status: unemployed Physical Exam Vital Signs: Vital Signs: Last Vital Signs Temp 98.6 F 03/16/22 11:32 Pulse 110 H 03/16/22 11:32 Resp 18 03/16/22 11:32 BP 145/77 H 03/16/22 11:32 Pulse Ox 98 03/16/22 11:32 O2 Del Method 03/16/22 11:32 BMI result Body Mass Index 28.1 Appearance: Alert. Oriented X3. active vomiting mild acute distress. Eyes: Pupils equal, round and reactive to light. ENT: Pharynx normal. mild coffee ground emesis x 1 on arrival Neck: Normal inspection. Neck supple. CVS: Normal heart rate and rhythm. Pulses normal. Respiratory: No respiratory distress. Breath sounds normal. Abdomen: Soft and non-tender. Skin: Skin warm and diaphoretic. Normal skin color. Normal skin turgor. Extremities: No lower extremity edema. No calf ttp Neuro: Oriented X 3. No motor deficit. No sensory deficit. Course Course Course Narrative: refusing lab work will watch for a little bit longer and anticipate patient will sign out AMA awake alert oriented x 3, refusing to take narcan home, wants no other services obs x 2 hours - stable for DC, will not take DC instructions as he doesn't want his to see that it states overdose on it. MDM - Overdose MDM Narrative Medical decision making narrative: 41 yo male with hx of substance abuse admits to overdosing on heroin today - received 8mg IN narcan, he is refusing detox, SUDE evaluation and will not take narcan home with him. He was violently vomiting on arrival and had some scant coffee ground emesis - no DOAC or AC therapy used suspect MW tear - zofran and protonix ordered. He is eager to leave denies SI. Agrees to labs and IVF but I anticipate he will leave [facility]. Lab Data Result diagrams: 03/16/22 11:56 03/16/22 11:55 Labs: Lab Results 03/16/22 03/16/22 03/16/22 Range/Units 11:55 11:55 11:56 WBC 5.5 (4.8-10.8) X10*3/uL RBC 5.18 (4.60-5.80) X10*6/uL Hgb 15.4 (14.0-18.0) g/dl Hct 44.7 (42.0-52.0) % MCV 86.3 (80.0-98.0) fL MCH 29.7 (27.0-33.0) pg MCHC 34.5 (31.0-36.0) g/dl RDW 11.9 (11.0-16.0) % Plt Count 272 (160-400) X10*3/uL MPV 8.9 L (9.4-12.4) fL Immature Gran % (Auto) 0.9 H (0.0-0.4) % Neut % (Auto) 73.5 H (45-73) % Lymph % (Auto) 15.9 L (20-40) % [place]pine % (Auto) 8.5 (2-11) % Eos % (Auto) 0.7 (0-4) % Baso % (Auto) 0.5 (0-2) % Lymph # (Auto) 0.9 L (1.2-4.9) X10*3/uL [place] # (Auto) 0.5 (0.1-1.2) X10*3/uL Eos # (Auto) 0.0 (0.0-0.4) X10*3/uL Baso # (Auto) 0.0 (0.0-0.2) X10*3/uL Abs Immat Gran (auto) 0.05 H (0.00-0.03) X10*3/uL Absolute Neuts (auto) 4.1 (2.0-8.3) x10*3/uL Absolute Nucleated RBC 0.000 (0.0-0.012) X10*3/uL Nucleated RBC % (auto) 0.0 (0.0-0.2) /100WBC Sodium 139 (135-145) mmol/L Potassium 4.4 (3.3-5.1) mmol/L Chloride 105 (96-108) mmol/L Carbon Dioxide 26 (22-29) mmol/L Anion Gap 12 (12-20) BUN 18 H (9-16) mg/dL Creatinine 1.07 (0.5-1.4) mg/dL Estim Creat Clear Calc 97.8 Estimated GFR > 60 Random Glucose 150 H D (60-115) mg/dL Calcium 9.2 D (8.4-10.2) mg/dL Magnesium 2.1 (1.6-2.6) mg/dL Total Bilirubin 0.5 (0.0-1.0) mg/dL Direct Bilirubin 0.3 (0.0-0.5) mg/dL AST 62 H (5-37) U/L ALT 66 H (0-40) U/L Alkaline Phosphatase 75 (39-117) U/L Total Protein 7.6 (6.5-8.0) g/dL Albumin 4.0 (3.5-5.0) g/dL Ethyl Alcohol < 10 mg/dL COVID-19 (MARY) Negative (Negative) COVID-19 Clin Com See Note ECG Data Attestation: I personally reviewed and interpreted this ECG as follows: ECG interpretation date: 03/16/22 ECG interpretation time: 12:28 Interpretation: Rate: 95 Rhythm: NSR [place]: normal Normal P waves. Normal JEFF. Normal QRS complex. ST T wave : normal no REGIS qTC: normal prior studies: no acute ischemia The study has been interpreted contemporaneously by me. . Discharge Plan Discharge Clinical Impression: Accidental heroin overdose Qualifiers: Encounter type: initial encounter Qualified Code(s): T40.1X1A - Poisoning by heroin, accidental (unintentional), initial encounter Patient Disposition: Home, Self-Care Additional Instructions: return to ED for any worsening symptoms or concerns please stay with responsible adult 24 hours you were offered detox, suboxone/methadone help/narcan to take home but you refused Stand Alone Forms: Work/School Release
--- NOTE | 2022-03-16 11:39 | PC.NURSE ---
pt refusing lab work doctor and nurse in charge of patients care made aware
[2022-03-16] MEDS: Pantoprazole Sodium 40 MG/10 ML VIAL IVPUSH (11:41)
[2022-03-16] MEDS: Lactated Ringers 1,000 ML 999 ML IV ×2 (11:44→13:23)
[2022-03-16 12:05] LABS: MANUAL DIFF FLAG NO
[2022-03-16 12:10] LABS: Basophils Percent Auto 0.5 % (0-2); Eosinophils Percent Auto 0.7 % (0-4); Hematocrit 44.7 % (42.0-52.0); Hemoglobin 15.4 g/dl (14.0-18.0); Imm Gran Abs Auto 0.05 X10*3/uL (0.00-0.03); Imm Gran Pct Auto 0.9 % (0.0-0.4); Lymphocytes Absolute Auto 0.9 X10*3/uL (1.2-4.9); Lymphocytes Percent Auto 15.9 % (20-40); Mean Corpuscular HGB Conc 34.5 g/dl (31.0-36.0); Mean Corpuscular Hemoglobin 29.7 pg (27.0-33.0); Mean Corpuscular Volume 86.3 fL (80.0-98.0); Mean Platelet Volume 8.9 fL (9.4-12.4); Monocytes Absolute Auto 0.5 X10*3/uL (0.1-1.2); Monocytes Percent Auto 8.5 % (2-11); Neutrophils Absolute Auto 4.1 x10*3/uL (2.0-8.3); Neutrophils Percent Auto 73.5 % (45-73); Platelet Count 272 X10*3/uL (160-400); Red Blood Count 5.18 X10*6/uL (4.60-5.80); Red Cell Distribution Width 11.9 % (11.0-16.0); White Blood Count 5.5 X10*3/uL (4.8-10.8)
[2022-03-16 12:30] LABS: Alanine Aminotransferase 66 U/L (0-40); Alkaline Phosphatase 75 U/L (39-117); Anion Gap 12 (12-20); Aspartate Amino Transferase 62 U/L (5-37); Bilirubin Direct 0.3 mg/dL (0.0-0.5); Bilirubin Total 0.5 mg/dL (0.0-1.0); Blood Urea Nitrogen 18 mg/dL (9-16); Calcium 9.2 mg/dL (8.4-10.2); Carbon Dioxide 26 mmol/L (22-29); Chloride 105 mmol/L (96-108); Creatinine Clr Calc Pharmacy 97.8; Estimated Glomerular Filt Rate > 60; Ethanol < 10 mg/dL; Glucose Random 150 mg/dL (60-115); Magnesium 2.1 mg/dL (1.6-2.6); Potassium 4.4 mmol/L (3.3-5.1); Sodium 139 mmol/L (135-145); Total Protein 7.6 g/dL (6.5-8.0)
[2022-03-16 12:33] LABS: COVID-19 Test Negative (Negative); IDNOW Serial# 16C4AD1C
--- NOTE | 2022-03-16 13:35 | PC.NURSE ---
DR MUNOZ SPOKE WITH PATIENT REGARDING DISCHARGE HOME. PT AGREEABLE TO DC. REPORTS THAT HE DOES NOT WANT ANY PAPERWORK GIVEN. PT AWAKE, ALERT AND ORIENTED X 3. SKIN WARM AND DRY. RESP UNLABORED. DENIES N/V. NO C/O PAIN. NEUROS INTACT. SPEAKING IN FULL CLEAR SENTENCES. IV REMOVED. AMBULATORY OUT OF ER, GAIT STEADY. AWAITING RIDE HOME.
== END 2022-03-16 13:42 | disposition home or self-care (01) ==
PROVIDERS: Emergency Provider Emergency Medicine
DX: T40.1X1A Poisoning by heroin, accidental (unintentional), initial encounter (principal); R40.4 Transient alteration of awareness; Y92.9 Unspecified place or not applicable; F19.10 Other psychoactive substance abuse, uncomplicated; F14.10 Cocaine abuse, uncomplicated; Z20.822 Contact with and (suspected) exposure to COVID-19
CPT/HCPCS: 80048; 80076; 82077; 83735; 85025; 87635; 93005; 96361; 96374; 96375; 99283; 99284; J2405

== ENCOUNTER 2022-08-19 08:18 | Emergency (ER) | payer OTHER, SELFPAY ==
[2022-08-19 08:20] VITALS: BP 144/86; PULSE 95; RESP 16; TEMP 36.1; O2SAT 100; BMI 32.8
--- NOTE | 2022-08-19 08:29 | ED_ITS ---
HPI - General Adult General Chief complaint: General Medical Stated complaint: medication issue Time Seen by Provider: 08/19/22 08:29 Source: patient Mode of arrival: ambulatory Limitations: no limitations History of Present Illness HPI narrative: 41-year-old male history of heroin abuse only by sniffing never used IV last use was 2 days ago he used 5 bags patient is experiencing some heroin withdrawal symptoms today patient is seeking Suboxone, patient was on Suboxone for withdrawal in the past. Patient is scheduled cc Suboxone Clinic in [place] on Sunday was hoping to get started today in the emergency department. Patient also is complaining of cloudy urine but no dysuria, no frequency urination. Patient is sexually active with 1 person decline any chance of STDs, no penile discharge. Related Data Allergies Allergy/AdvReac Type Severity Reaction Status Date / Time No Known Allergies Allergy Verified 09/27/20 12:24 Review of Systems Review of Systems: All other systems are reviewed and are negative Constitutional: Reports as per HPI and Reports no additional constitutional complaints Eyes: Reports as per HPI and Reports no additional eye complaints Reports system reviewed and no additional complaints, except as documented Cardiovascular: Reports as per HPI and Reports no additional cardiovascular complaints Respiratory: Reports as per HPI and Reports no additional respiratory complaints Gastrointestinal: Reports as per HPI and Reports no additional gastrointestinal complaints Genitourinary: Reports no additional female genitourinary complaints Musculoskeletal: Reports no additional musculoskeletal complaints Skin/Breast: Reports system reviewed and no additional complaints, except as docu Psychiatric: Reports no additional psychiatric complaints Endocrine: Reports no additional endocrine complaints Hematologic/Lymphatic: Reports no additional hematologic/lymphatic complaints Allergic/Immunologic: Reports no additional allergic/immunologic complaints Reports system reviewed and no additional complaints, except as documented and Reports Abnormal speech present [facility] Past Medical History Medical History Asthma Asthma with exacerbation Elevated troponin Heroin overdose Latent tuberculosis Substance abuse Social History Social History Household Members: Spouse Housing: Apartment Do you presently have visiting nurse or other home services: No Alcohol intake: never Patient Tobacco Use Status: Current everyday Tobacco user Cigarette Packs Per Day: 1.5 Cigarettes Per Day: 30.0 Smoked in Last 30 Days: No Second Hand Smoke Exposure: No Use of substances other than those prescribed or required for medical reasons: Yes Substance Use Type: Heroin Advance Directives: No Advance Directives Information Provided: Yes service: No Current occupational status: unemployed Physical Exam ED Vital Signs: Vital Signs - 24 hr 08/19/22 08:20 08/19/22 08:31 Temperature 97.0 F 98.0 F Pulse Rate 95 83 Respiratory Rate 16 16 Blood Pressure 144/86 H 136/82 Pulse Oximetry 100 98 Oxygen Delivery Method Room Air Room Air BMI result Body Mass Index 32.8 Vital signs have been reviewed as appeared to be correct. Blood pressure normal. Heart rate normal. Respiration rate normal. Temperature normal. Oxygen saturation normal. Appearance: Alert. Oriented X3. No acute distress. Head: Normal external exam. Normocephalic. Atraumatic. No Art signs noted. No raccoon eyes noted Eyes: PERRLA. EOMI. Conjunctiva and sclera normal. Eyelids normal. ENT: TM's Normal. Pharynx normal. Uvula midline. Moist mucous membranes. No trismus noted. No drooling noted. No muffled voice noted. Neck: Normal inspection. Neck supple. FROM. No adenopathy. Thyroid Normal. No meningeal signs. No neck mass noted. CVS: Normal heart rate and rhythm. Heart sound normal. No murmurs noted. Pulses normal throughout. Respiratory: No respiratory distress. Painless inspiration. Breath sounds normal. No wheezes/rales/rhonchi noted. Chest nontender. No accessory muscle usage noted or decreased air movement noted. Abdomen: Soft and nontender. Bowel sounds normal in all 4 quadrants. No distention noted. No organomegaly noted. No visible injury noted. Back: No CVA tenderness. Full range of motion noted. Skin: Skin warm and dry. Normal skin color. Normal skin turgor. No rashes/lesions/lacerations noted. Extremities: No lower extremity edema. Extremities exhibit normal range of motion. Extremities nontender. Neuro: Oriented X 3. Cranial nerve exam: II-XII are grossly intact No motor deficit. No sensory deficit. Reflexes normal. Course Course Course Narrative: Cloudy urine patient otherwise declined risk for STDs will start the patient on Levaquin. Patient was given 8 mg fell off Suboxone in the ED no withdrawal symptoms was developed patient was instructed to follow up with Suboxone Clinic at [place] on Sunday or return tomorrow if have any withdrawal symptoms. Medications Administered Discontinued Medications Generic Name Dose Route Start Last Admin Trade Name Mac PRN Reason Stop Dose Admin Buprenorphine/Naloxone 1 film 08/19/22 08:41 08/19/22 08:58 Buprenorphine/Naloxone 8/2 Mg Film SUBLINGUAL 08/19/22 08:42 1 film ONCE ONE Administration Medical Decision Making Differential Diagnosis Differential Diagnoses: The differential diagnosis associated with the presentation includes (Heroin withdrawal, UTI, STD.) Lab Data MDM Lab Attestation statement: I reviewed the patient's lab results. Labs: Lab Results 08/19/22 Range/Units 08:44 Urine Color Dark Yellow Urine Appearance Turbid Urine pH 6.0 (5.0-9.0) Ur Specific [place] 1.020 (1.005-1.025) Urine Protein 30 (1+) H (Neg-Trace) mg/dL Urine Glucose (UA) Negative (Negative) mg/dL Urine Ketones Negative (Negative) mg/dL Urine Blood Moderate (2+) H (Negative) Urine Nitrite Positive H (Negative) Ur Leukocyte Esterase Large (3+) H (Negative) Urine RBC 3-5 H (0-2) /HPF Urine WBC >50 H (0-5) /HPF Ur Squamous Epith Cells 0-2 (0-2) /HPF Urine Bacteria 4+ (None Seen) Hyaline Casts 0-2 (0-2) /LPF Discharge Plan Discharge Clinical Impression: Withdrawal from opioids, Acute UTI Patient Disposition: Home, Self-Care Instructions: Urinary Tract Infection in Men (ED) Additional Instructions: Follow up with the Suboxone clinic on Sunday.
[2022-08-19 08:31] VITALS: BP 136/82; PULSE 83; RESP 16; TEMP 36.7; O2SAT 98
[2022-08-19 08:51] LABS: Appearance Urine Turbid; Color Urine Dark Yellow; Glucose Urine UA Negative (Negative); Leukocyte Esterase Urine Large (3+) (Negative); Nitrite Urine Positive (Negative); UMIC TRIGGER UACC YES; Urine Blood Moderate (2+) (Negative); Urine Ketones Negative (Negative); Urine Protein 30 (1+) mg/dL (Neg-Trace)
[2022-08-19] MEDS: Buprenorphine/Naloxone 8/2 mg FILM 1 FILM SUBLINGUAL (08:58)
[2022-08-19 09:05] LABS: Bacteria Urine 4+ (None Seen); Hyaline Casts Urine 0-2 /LPF (0-2); Squamous Epithelial Cell Urine 0-2 /HPF (0-2); UACC Culture Trigger YES; WBC Urine >50 /HPF (0-5)
[2022-08-19] MEDS: levoFLOXacin 750 MG TABLET PO (09:19)
[2022-08-19 12:25] LABS: CT PCR NOT DETECTED (Not Detect.); NG PCR NOT DETECTED (Not Detect.)
== END 2022-08-19 09:27 | disposition home or self-care (01) ==
PROVIDERS: Emergency Provider Emergency Medicine
DX: F11.13 Opioid abuse with withdrawal (principal); N39.0 Urinary tract infection, site not specified; B96.20 Unspecified Escherichia coli [E. coli] as the cause of diseases classified elsewhere; F14.10 Cocaine abuse, uncomplicated; F17.210 Nicotine dependence, cigarettes, uncomplicated
CPT/HCPCS: 0353U; 81001; 87086; 87088; 87186; 99283; 99284

== ENCOUNTER 2025-02-19 20:26 | Emergency (ER) | payer MEDICAID, SELFPAY ==
[2025-02-19 20:32] VITALS: BP 143/89; PULSE 115; RESP 16; TEMP 36.8; O2SAT 95; BMI 32.7
--- NOTE | 2025-02-19 20:35 | ED.GENADULT ---
HPI - General Adult General Chief complaint: Dental/Oral Stated complaint: multiple issues; infection in teeth Time Seen by Provider: 02/19/25 22:18 Source: patient Mode of arrival: ambulatory Limitations: no limitations History of Present Illness ED Provider: HPI narrative: Patient with multiple caries comes here with increased pain in the left lower molar pain for last few days plan to see dentist soon no fever no chills Related Data Previous Rx's ?Medication ?Instructions ?Recorded levofloxacin 750 mg tablet 750 mg PO DAILY #7 tabs 08/19/22 amoxicillin 875 mg-potassium 1 tab PO BID #20 tabs 02/19/25 clavulanate 125 mg tablet ibuprofen 600 mg tablet 600 mg PO Q6H PRN fever or pain 02/19/25 #30 tabs Allergies Allergy/AdvReac Type Severity Reaction Status Date / Time No Known Allergies Allergy Verified 02/19/25 20:35 Review of Systems Review of Systems: Yes all other systems are reviewed and are negative PMFSH Past Medical History Medical History Elevated troponin Heroin overdose Asthma with exacerbation Latent tuberculosis Asthma Substance abuse Social History Social History Household Members: Spouse Housing: Apartment Do you presently have visiting nurse or other home services: No Alcohol intake: never Patient Tobacco Use Status: Current everyday Tobacco user Cigarette Packs Per Day: 1.5 Cigarettes Per Day: 30.0 Smoked in Last 30 Days: Yes Second Hand Smoke Exposure: No Use of substances other than those prescribed or required for medical reasons: Yes Substance Use Type: Marijuana Advance Directives: No Advance Directives Information Provided: No service: No Current occupational status: unemployed Physical Exam ED Vital Signs: Vital Signs - 24 hr 02/19/25 20:32 02/19/25 22:19 02/19/25 22:56 Temperature 98.2 F 98.1 F Pulse Rate 115 H 105 H 105 H Respiratory Rate 16 16 16 Blood Pressure 143/89 H 127/91 H 127/91 H Pulse Oximetry 95 95 95 Oxygen Delivery Method Room Air Room Air Room Air BMI result Body Mass Index 32.7 HENOK Teeth image:  1. Multiple cavity off teeth 19 and 20 no abscess palpable Course Course Course Narrative: This is a rapid medical exam performed by Devora Nelson NP: Additional HPI, ROS, PE not included below will be deferred to primary provider. Patient is a 44-year-old male presenting to the ED with complaint of right lower dental pain x 3 weeks. Has not yet contacted a dentist. Feels subjective fevers, nausea. Plan: labs Medications Administered Discontinued Medications Generic Name Dose Route Start Last Admin Trade Name Kirkq PRN Reason Stop Dose Admin Amoxicillin/Clavulanate Potassium 875 mg 02/19/25 22:34 02/19/25 22:52 Amoxicillin/Potassium Clav 875 Mg Tablet PO 02/19/25 22:35 875 mg ONCE ONE Administration Oxycodone HCl 10 mg 02/19/25 22:34 02/19/25 22:52 Oxycodone Hcl Immed Release 5 Mg Tablet PO 02/19/25 22:35 10 mg ONCE ONE Administration Medical Decision Making Medical Decision Making [facility] Narrative: Patient with dental pulpitis without abscess will prescribe Augmentin and pain control Lab Data 02/19/25 21:06 02/19/25 21:06 Labs: Lab Results 02/19/25 Range/Units 21:06 WBC 10.9 H (4.8-10.8) X10*3/uL RBC 5.23 (4.60-5.80) X10*6/uL Hgb 15.5 (14.0-18.0) g/dl Hct 44.4 (42.0-52.0) % MCV 84.9 (80.0-98.0) fL MCH 29.6 (27.0-33.0) pg MCHC 34.9 (31.0-36.0) g/dl RDW 12.1 (11.0-16.0) % Plt Count 290 (160-400) X10*3/uL MPV 8.3 L (9.4-12.4) fL Immature Gran % (Auto) 0.4 (0.0-0.4) % Neut % (Auto) 76.2 H (45-73) % Lymph % (Auto) 13.4 L (20-40) % [place] % (Auto) 9.8 (2-11) % Eos % (Auto) 0.0 (0-4) % Baso % (Auto) 0.2 (0-2) % Lymph # (Auto) 1.5 (1.2-4.9) X10*3/uL [place] # (Auto) 1.1 (0.1-1.2) X10*3/uL Eos # (Auto) 0.0 (0.0-0.4) X10*3/uL Baso # (Auto) 0.0 (0.0-0.2) X10*3/uL Abs Immat Gran (auto) 0.04 H (0.00-0.03) X10*3/uL Absolute Neuts (auto) 8.3 (2.0-8.3) x10*3/uL Absolute Nucleated RBC 0.000 (0.0-0.012) X10*3/uL Nucleated RBC % (auto) 0.0 (0.0-0.2) /100WBC Sodium 139 (135-145) mmol/L Potassium 4.8 (3.3-5.1) mmol/L Chloride 106 (96-108) mmol/L Carbon Dioxide 23 (22-29) mmol/L Anion Gap 15 (12-20) BUN 18 H (9-16) mg/dL Creatinine 1.03 (0.5-1.4) mg/dL Estim Creat Clear Calc 105.7 Estimated GFR > 60 Random Glucose 121 H (60-115) mg/dL Calcium 9.4 (8.4-10.2) mg/dL Total Bilirubin 0.7 (0.0-1.0) mg/dL AST 58 H (5-37) U/L ALT 60 H (0-40) U/L Alkaline Phosphatase 73 (39-117) U/L Total Protein 8.5 H (6.5-8.0) g/dL Albumin 4.7 (3.5-5.0) g/dL Discharge Plan Discharge Clinical Impression: Dental caries Patient Disposition: Home, Self-Care Instructions: Toothache (ED) Additional Instructions: Take antibiotic and pain meds as prescribed Follow up with your dentist Prescriptions: New ibuprofen 600 mg tablet 600 mg PO Q6H PRN (Reason: fever or pain) Qty: 30 0RF amoxicillin-pot clavulanate 875-125 mg tablet 1 tab PO BID Qty: 20 0RF No Action levofloxacin 750 mg tablet 750 mg PO DAILY Qty: 7 0RF Stand Alone Forms: Work/School Release Interventions: ED Discharge Assessment Last Done: 02/19/25 22:56 Print Language: Malay
--- NOTE | 2025-02-19 21:03 | PC.NURSE ---
assumed care of pt. States tooth pain for 3 weeks, with fever malaise and b/l neck gland pain for 2 weeks. Pt has taken ibuprofen intermittently or pain and fever, states he took oxycodone today for pain, 7/10 pain currently. tech at bedside for blood collection.
[2025-02-19 21:10] LABS: MANUAL DIFF FLAG NO
[2025-02-19 21:11] LABS: Hematocrit 44.4 % (42.0-52.0); Hemoglobin 15.5 g/dl (14.0-18.0); Imm Gran Abs Auto 0.04 X10*3/uL (0.00-0.03); Imm Gran Pct Auto 0.4 % (0.0-0.4); Lymphocytes Absolute Auto 1.5 X10*3/uL (1.2-4.9); Mean Corpuscular HGB Conc 34.9 g/dl (31.0-36.0); Mean Corpuscular Hemoglobin 29.6 pg (27.0-33.0); Mean Corpuscular Volume 84.9 fL (80.0-98.0); NRBC Abs Auto 0.000 X10*3/uL (0.0-0.012); NRBC Pct Auto 0.0 /100WBC (0.0-0.2); Platelet Count 290 X10*3/uL (160-400); Red Blood Count 5.23 X10*6/uL (4.60-5.80); White Blood Count 10.9 X10*3/uL (4.8-10.8)
[2025-02-19 21:24] LABS: Alanine Aminotransferase 60 U/L (0-40); Albumin Level 4.7 g/dL (3.5-5.0); Alkaline Phosphatase 73 U/L (39-117); Anion Gap 15 (12-20); Aspartate Amino Transferase 58 U/L (5-37); Blood Urea Nitrogen 18 mg/dL (9-16); Calcium 9.4 mg/dL (8.4-10.2); Carbon Dioxide 23 mmol/L (22-29); Chloride 106 mmol/L (96-108); Creatinine Clr Calc Pharmacy 105.7; Estimated Glomerular Filt Rate > 60; Potassium 4.8 mmol/L (3.3-5.1); Sodium 139 mmol/L (135-145); Total Protein 8.5 g/dL (6.5-8.0)
[2025-02-19 22:19] VITALS: BP 127/91; PULSE 105; RESP 16; O2SAT 95
[2025-02-19] MEDS: oxyCODONE HCl Immed Release 5 MG TABLET 10 MG PO (22:52)
--- NOTE | 2025-02-19 22:55 | PC.NURSE ---
pt medicated per MAR at d/c
[2025-02-19 22:56] VITALS: BP 127/91; PULSE 105; RESP 16; TEMP 36.7; O2SAT 95
== END 2025-02-19 22:50 | disposition home or self-care (01) ==
PROVIDERS: Registered Nurse Emergency; Emergency Provider Internal Medicine
DX: K02.9 Dental caries, unspecified (principal); Z79.899 Other long term (current) drug therapy
CPT/HCPCS: 36415; 80053; 85025; 99283; 99284

== ENCOUNTER 2025-03-21 23:16 | Emergency (ER) | payer BC, SELFPAY ==
--- NOTE | 2025-03-21 | ECG_ITS ---
Test Reason : ETOH Blood Pressure : */* mmHG Vent. Rate : 115 BPM Atrial Rate : 115 BPM P-R Int : 148 ms QRS Dur : 70 ms QT Int : 310 ms P-R-T Axes : 41 23 29 degrees QTcB Int : 428 ms Sinus tachycardia Possible Left atrial enlargement Borderline ECG No previous ECGs available Referred By: Generic ED Physician Electronically Signed By: Mohan Eldridge
[2025-03-21 23:27] VITALS: BP 167/67; PULSE 118; RESP 16; TEMP 36.6; O2SAT 98; BMI 33.4
--- OUTSIDE RECORDS SUMMARY | 2025-03-22 00:59 | XMS_ITS ---
Author Name [facility] Organization Unknown Encounters Encounter Type Encounter Reason Primary Diagnosis Location Date Ambulatory [facility] 02/20/2025 Care Team Organization Name Specialty Phone Email Start Date End Da te [facility] 2024 [facility] Primary Care 11/19/2024
--- OUTSIDE RECORDS SUMMARY | 2025-03-22 00:59 | XMS_ITS | Clinical Summary ---
Author Organization [facility] ity Address [address] [place] [address] Care Team Providers Care Center Consultant Name Role Phone Komal Lopez Primary Care Provider [phone] Surgical History Surgery Date Site/Laterality Comments OTHER SURGICAL HISTORY 04/11/2022 PROCEDURE: MI CAMPA FACETECTOMY & FORAMOTOMY 1 VRT SGM LUMBAR; COMMENT: L2-3, L3-4 decompression, L3-4 discectomy, Dr. Benitez Social History Tobacco Use Types Packs/Day Years Used Date Smoking Tobacco: Never Smokeless Tobacco: Never Sex and Gender Information Value Date Recorded Sex Assigned at Not on file Legal Sex Male 7:33 PM EST Gender Identity Not on file Sexual Orientation Not on file Obstetrics History Last Filed Vital Signs Vital Sign Reading Time Taken Comments Blood Pressure - - Pulse - - Temperature - - Respiratory Rate - - Oxygen Saturation - - Inhaled Oxygen Concentration - - Weight 97.5 kg (215 lb) 06/26/2022 3:40 PM EST Height 172.7 cm (5' 8 ) 05/01/2022 1:38 PM EDT Body Mass Index 32.69 05/01/2022 1:38 PM EDT Plan of Treatment Health Maintenance Due Date Last Done Comments Hepatitis B Vaccines (1 of 3 - 19+ 3-dose series) 2001 Cholesterol Screening (Lipid Panel) 07/08/2022 HIV Screening 07/08/2022 Hepatitis C Screening 07/08/2022 Social Influencers of Health Screening 07/08/2022 COVID-19 Vaccine ( - 2023-2 5 season) 2024 Depression Screening 08/06/2024 Influenza Vaccine (#1) 2025 DTaP,Tdap,and Td Vaccines (2 - Td or Tdap) 05/31/2032 05/31/2022 HIB Vaccines Aged Out No longer eligi ble based on patient's age to complete this topic HPV Vaccines Aged Out No longer eligi ble based on patient's age to complete this topic Hepatitis A Vaccines Aged Out No long er eligible based on patient's age to complete this topic IPV Vaccines Aged Out No longer eligi ble based on patient's age to complete this topic MMR Vaccines Aged Out No longer eligi ble based on patient's age to complete this topic Meningococcal ACWY Vaccine Aged Out N o longer eligible based on patient's age to complete this topic Meningococcal B Vaccine Aged Out No l onger eligible based on patient's age to complete this topic Pneumococcal Vaccine: Pediat rics (0 to 5 Years) and At-Risk Patients (6 to 49 Years) Aged Out No longer eligi ble based on patient's age to complete this topic RSV Immunization Patients Un tsering 20 months Aged Out No longer eligible b ased on patient's age to complete this topic Varicella Vaccines Aged Out No longer eligible based on patient's age to complete this topic Care Teams Center Consultant Relationship Specialty Start Date End Date Komal Lopez PCP - General 05/01/22
[2025-03-22 01:01] LABS: MANUAL DIFF FLAG NO
[2025-03-22 01:02] LABS: Hematocrit 40.4 % (42.0-52.0); Hemoglobin 13.8 g/dl (14.0-18.0); Imm Gran Abs Auto 0.02 X10*3/uL (0.00-0.03); Imm Gran Pct Auto 0.3 % (0.0-0.4); Lymphocytes Absolute Auto 1.7 X10*3/uL (1.2-4.9); Mean Corpuscular HGB Conc 34.2 g/dl (31.0-36.0); Mean Corpuscular Hemoglobin 29.1 pg (27.0-33.0); Mean Corpuscular Volume 85.2 fL (80.0-98.0); NRBC Abs Auto 0.000 X10*3/uL (0.0-0.012); NRBC Pct Auto 0.0 /100WBC (0.0-0.2); Platelet Count 268 X10*3/uL (160-400); Red Blood Count 4.74 X10*6/uL (4.60-5.80); White Blood Count 7.5 X10*3/uL (4.8-10.8)
[2025-03-22 01:12] LABS: Alanine Aminotransferase 55 U/L (0-40); Albumin Level 3.9 g/dL (3.5-5.0); Alkaline Phosphatase 77 U/L (39-117); Anion Gap 13 (12-20); Aspartate Amino Transferase 56 U/L (5-37); Blood Urea Nitrogen 13 mg/dL (9-16); Calcium 9.0 mg/dL (8.4-10.2); Carbon Dioxide 26 mmol/L (22-29); Chloride 101 mmol/L (96-108); Creatinine Clr Calc Pharmacy 144.9; Estimated Glomerular Filt Rate > 60; Potassium 4.0 mmol/L (3.3-5.1); Sodium 136 mmol/L (135-145); Total Protein 7.5 g/dL (6.5-8.0)
--- NOTE | 2025-03-22 02:53 | ED_ITS ---
HPI - Psych General Chief Complaint: ETOH/Substance Use Stated Complaint: withdrawls Time Seen by Provider: 03/22/25 02:06 Source: patient and old records reviewed Mode of arrival: ambulatory Limitations: no limitations History of Present Illness ED Provider: TAMMY HPI Narrative: 44 yo male with PMH of heroin/cocaine abuse states he only snorts. He has suboxone at home 03/07 he takes 2 films a day but hasn't taken it in 2 weeks. He states he had issues in his family that caused him to use again. He denies trauma or medical complaints. He has no SI/HI. He wants to go to detox for 3 to 4 days. Last used [employer] complaint: substance abuse Onset (ago): week(s) (2) Duration: constant History of same: Yes Relieving factors: none Exacerbating factors: drug use and other Context: significant life stressor Associated psychiatric symptoms: none Associated symptoms: denies other symptoms Treatments prior to arrival: none Related Data Previous Rx's ?Medication ?Instructions ?Recorded levofloxacin 750 mg tablet 750 mg PO DAILY #7 tabs amoxicillin 875 mg-potassium 1 tab PO BID #20 tabs clavulanate 125 mg tablet ibuprofen 600 mg tablet 600 mg PO Q6H PRN fever or p ain 02/19/25 #30 tabs Allergies Allergy/AdvReac Type Severity Reaction Status Date / Time No Known Allergies Allergy Verified 03/21/25 23:30 Review of Systems 2 Review of Systems: Constitutional : No Fever, No Chills ENT/Mouth : No Ear Pain, No Nasal Congestion, No sore throat Eyes: No Eye Pain, No Swelling, No Redness Cardiovascular : No Chest Pain, No SOB Respiratory : No Cough, No Sputum, No Dyspnea Gastrointestinal : No Nausea, No Vomiting, No Diarrhea, No Hematochezia, No Melena Genitourinary : No Dysuria, No Urinary Frequency, No Hematuria Musculoskeletal : No Myalgias Skin : No Skin Lesions, No rash Neuro : No Weakness, No Numbness, No Paresthesias, No Dizziness, No Headache Psych : positive Anxiety, no Depression, no SI/HI All other systems reviewed and are negative PMFSH Past Medical History Attestation statement: The following information was validated with the patient. Source: old records reviewed Medical History Elevated troponin Heroin overdose Asthma with exacerbation Latent tuberculosis Asthma Substance abuse Social History Social History Household Members: Spouse Housing: Apartment Do you presently have visiting nurse or other home services: No Alcohol intake: never Patient Tobacco Use Status: Current everyday Tobacco user Cigarette Packs Per Day: 1.5 Cigarettes Per Day: 30.0 Smoked in Last 30 Days: Yes Second Hand Smoke Exposure: No Use of substances other than those prescribed or required for medical reasons: Yes Substance Use Type: Heroin Advance Directives: No Advance Directives Information Provided: No Do you have a plan to hurt others: No Plan service: No Current occupational status: unemployed Physical Exam 2 Vital Signs: Vital Signs: Last Vital Signs Temp 98.2 F 03/22/25 03:21 Pulse 97 03/22/25 03:21 Resp 18 03/22/25 03:21 BP 116/81 03/22/25 03:21 Pulse Ox 94 03/22/25 03:21 O2 Del Method Room Air 03/22/25 03:21 BMI result Body Mass Index 33.4 Appearance: Alert. Oriented X3. No acute distress. slightly sleepy seems like he is still under the influence Eyes: Pupils equal, round and reactive to light. ENT: Pharynx normal. Neck: Normal inspection. Neck supple. CVS: Normal heart rate and rhythm. Pulses normal. Respiratory: No respiratory distress. Breath sounds normal. Abdomen: Soft and nontender. Skin: Skin warm and dry. Normal skin color. Normal skin turgor. Extremities: No lower extremity edema. No calf ttp Neuro: Oriented X 3. No motor deficit. No sensory deficit. CN2-12 intact Course Reevaluation(s) Reevaluation #1: Time: 16:41 Date: 03/22/25 Provider: Phuc Webber DO Physician observation ended . According to care team: The recovery team will no longer be assisting this patient with detox as he is being uncooperative and we have other patients to see. [facility] said he can always walk-in there tomorrow morning. Patient's vital signs are reassuring he is not hypotensive, not tachycardic, he has no history of significant alcohol use disorder suggesting alcohol withdrawals necessitating admission. Time: 16:41 Medications Administered Discontinued Medications Generic Name Dose Route Start Last Admin Trade Name Mac PRN Reason Stop Dose Admin Lorazepam 2 mg 03/22/25 02:07 03/22/25 03:19 Lorazepam 1 Mg Tablet PO 03/22/25 02:08 2 mg ONCE ONE Administration Medical Decision Making Medical Decision Making [facility] Narrative: 44 yo male with PMH of substance abuse here with c/o wanting detox. He just used [employer]. He will need basic labs, EKG, recovery team. He will need to wait to get back on suboxone given recent use. Differential Diagnosis Differential Diagnoses: The differential diagnosis associated with the presentation includes anxiety, drug abuse, poor social support, lyte abnormality Admission/Observation Consideration of admission/observation: Escalation of care including admission/observation considered physician observation started at 256am pending recovery Consult Healthcare Provider Management of the patient was discussed with: Behavioral Health Provider Lab Data [facility] Lab Attestation statement: I reviewed the patient's lab results. 03/22/25 00:50 03/22/25 00:50 Labs: Lab Results 03/22/25 Range/Units 00:50 WBC 7.5 (4.8-10.8) X10*3/uL RBC 4.74 (4.60-5.80) X10*6/uL Hgb 13.8 L (14.0-18.0) g/dl Hct 40.4 L (42.0-52.0) % MCV 85.2 (80.0-98.0) fL MCH 29.1 (27.0-33.0) pg MCHC 34.2 (31.0-36.0) g/dl RDW 11.8 (11.0-16.0) % Plt Count 268 (160-400) X10*3/uL MPV 8.3 L (9.4-12.4) fL Immature Gran % (Auto) 0.3 (0.0-0.4) % Neut % (Auto) 65.5 (45-73) % Lymph % (Auto) 23.1 (20-40) % [place] % (Auto) 10.6 (2-11) % Eos % (Auto) 0.1 (0-4) % Baso % (Auto) 0.4 (0-2) % Lymph # (Auto) 1.7 (1.2-4.9) X10*3/uL [place] # (Auto) 0.8 (0.1-1.2) X10*3/uL Eos # (Auto) 0.0 (0.0-0.4) X10*3/uL Baso # (Auto) 0.0 (0.0-0.2) X10*3/uL Abs Immat Gran (auto) 0.02 (0.00-0.03) X10*3/uL Absolute Neuts (auto) 4.9 (2.0-8.3) x10*3/uL Absolute Nucleated RBC 0.000 (0.0-0.012) X10*3/uL Nucleated RBC % (auto) 0.0 (0.0-0.2) /100WBC Sodium 136 (135-145) mmol/L Potassium 4.0 (3.3-5.1) mmol/L Chloride 101 (96-108) mmol/L Carbon Dioxide 26 (22-29) mmol/L Anion Gap 13 (12-20) BUN 13 (9-16) mg/dL Creatinine 0.76 (0.5-1.4) mg/dL Estim Creat Clear Calc 144.9 Estimated GFR > 60 Random Glucose 135 H (60-115) mg/dL Calcium 9.0 (8.4-10.2) mg/dL Total Bilirubin 0.6 (0.0-1.0) mg/dL AST 56 H (5-37) U/L ALT 55 H (0-40) U/L Alkaline Phosphatase 77 (39-117) U/L Total Protein 7.5 (6.5-8.0) g/dL Albumin 3.9 (3.5-5.0) g/dL Ethyl Alcohol < 10 mg/dL Independent Interpretation I performed an independent interpretation of an: EKG Interpretation: Rate: 115 Rhythm: sinus tach [place]: normal Normal P waves. Normal JEFF. Normal QRS complex. ST T wave : normal no REGIS qTC: 428 prior studies: no acute ischemia The study has been interpreted contemporaneously by me. . External Record Review External record reviewed: Outpatient record Social Determinants Patient?s care significantly limited by Social Determinants of Health including: Problems related to primary support group Discharge Plan Discharge Clinical Impression: Substance abuse Patient Disposition: Home, Self-Care Instructions: Polysubstance Use Disorder (ED) Additional Instructions: Opiate use disorder You can got to [facility] detox tomorrow morning for admission You were seen in our Emergency Department today for treatment of opiate use disorder. You may have been dosed with medication for opiate use disorder (MOUD) in the form of suboxone or methadone. You may experience feeling some withdrawal symptoms and this is normal. The? dose in the Emergency Department is a starting dose and meant to be titrated up once you follow up with a clinic. Please do not feel discouraged, it is a process. The nurse has reviewed with you where to follow up and what information to bring with you, to continue treatment. You also may have been given naloxone (narcan) to take home with you. This medication is used to potentially treat opiate overdose. If you decide you want to stop or cut down on how much you?re using, you can call or walk into our outpatient Addiction Treatment office: [facility] (M-F 9am-5p) [address] [place] [address], [address] [phone] You may have been provided with safer injection?items, please take time to take care of YOU and your health. Use new supplies whenever possible to lessen the chances of infections and other illnesses.? ?If you need more supplies, please go [facility],? [address] [place] [address] OR you can call or text to coordinate delivery of safer supplies. You were also provided a list of several treatment providers in the area.? If you experience any worsening symptoms you cannot control please return to the ED or call 911. Please follow up at your next appointment. Things to look out for are fevers, chest pain, shortness of breath, severe pain, dizziness, fainting or any other concerns. Prescriptions: No Action levofloxacin 750 mg tablet 750 mg PO DAILY Qty: 7 0RF ibuprofen 600 mg tablet 600 mg PO Q6H PRN (Reason: fever or pain) Qty: 30 0RF amoxicillin-pot clavulanate 875-125 mg tablet 1 tab PO BID Qty: 20 0RF Print Language: Unable To Collect
[2025-03-22 03:21] VITALS: BP 116/81; PULSE 97; RESP 18; TEMP 36.8; O2SAT 94
--- NOTE | 2025-03-22 03:29 | PC.NURSE ---
upon arrival to [facility], security came to bedside to do safety check and contrabands found. pt has belongings at bedside. vss. pt medicated per oct. given sandwiches/juice per request. awaiting consults.
--- NOTE | 2025-03-22 09:18 | MHC.RECOVRN ---
Addendum entered by Nasrin Ames RN 03/22/25 13:30: Pt now accepting of a referral to be sent to [facility] on his behalf. Referral emailed to admissions at [facility]. Original Note: Briefly discussed support options w/ patient who had reported he wants to go to detox for OUD. Now pt wants to stay here for detox . Pt was told that is not an option. Pt falling back asleep and unable to consent for ATS referrals at this time. Respirations are WNL. Will approach again at a different time.
--- NOTE | 2025-03-22 16:42 | MHC.RECOVRN ---
Attempted to meet with pt for intake at [facility] per previous request of pt. Pt now being uncooperative with intake and saying you have to keep me here, it's the law . Pt was told that there are beds for walk-in tomorrow at [facility] per admission staff. Pt unhappy with this saying I will look up the law, you are required to keep me here . Pt encouraged to walk-in to [facility] in the morning, however pt not happy with this disposition. Pt declined for any other referrals to be placed on his behalf.
--- NOTE | 2025-03-22 18:28 | PC.NURSE ---
Spoke with pt and told to wait for d/c paperwork, upon return to [facility] pt appears to have left without paperwork. No IV was present.
[2025-03-22 18:31] VITALS: BP 116/81; PULSE 97; RESP 18; TEMP 36.8; O2SAT 94
== END 2025-03-22 18:35 | disposition left against medical advice (07) ==
PROVIDERS: Emergency Provider Emergency Medicine; PCP Internal Medicine
DX: F19.10 Other psychoactive substance abuse, uncomplicated (principal)
CPT/HCPCS: 36415; 80053; 80307; 85025; 93005; 99284; 99285; S9485

== ENCOUNTER → 2025-03-21 | Outpatient (BNV) | payer BC, SELFPAY | PROVIDERS: Emergency Provider Emergency Medicine; PCP Internal Medicine; Visit Provider Internal Medicine Cardiovascular Disease | DX: R00.0 Tachycardia, unspecified (principal) | CPT/HCPCS: 93010 ==

== ENCOUNTER 2025-07-06 20:55 | Observation (INO) | payer BC, SELFPAY ==
--- NOTE | ~2025-07-06 | XR_ITS ---
EXAMINATION: XR HUMERUS, LEFT CLINICAL INFORMATION: wound, concern for osteo COMPARISON: None available. TECHNIQUE: AP and lateral views of the left humerus. FINDINGS: No acute cortical disruption. No lytic or blastic lesions. No periosteal bone reaction. No bony erosion. No metallic or radiopaque foreign body. No subcutaneous emphysema. XR/XR humerus LT IMPRESSION: Normal left humerus x-ray. Electronically signed by: Jett Fernandez MD 07/07/2025 08:10 AM [facility]
--- NOTE | ~2025-07-06 | XR_ITS ---
EXAMINATION: XR FOOT, RIGHT CLINICAL INFORMATION: ?foreign body at heel COMPARISON: None available. TECHNIQUE: AP, lateral, and oblique views of the right foot. FINDINGS: No metallic or radiopaque foreign body. No subcutaneous emphysema. No acute cortical disruption or gross malalignment. No lytic or blastic lesions. No joint effusion. XR/XR foot RT min 3V IMPRESSION: Negative for foreign body. Electronically signed by: Jett Fernandez MD 07/07/2025 11:12 AM [facility]
--- NOTE | ~2025-07-06 | XR_ITS ---
EXAMINATION: XR HUMERUS RIGHT HISTORY: wound, concern for osteo COMPARISON: There are no prior studies available for comparison. FINDINGS: AP and lateral views of the right humerus are submitted. Osseous mineralization is normal. There is no fracture or dislocation. The visualized shoulder and elbow joint spaces are preserved. The soft tissues are unremarkable. XR/XR humerus RT IMPRESSION: Unremarkable examination of the right humerus. Electronically signed by: Mikie Padilla MD 07/07/2025 08:09 AM [facility]
[2025-07-06 20:57] VITALS: BP 117/81; PULSE 108; RESP 20; TEMP 36.7; O2SAT 96
[2025-07-06 21:44] LABS: MANUAL DIFF FLAG NO
[2025-07-06 21:45] LABS: Hematocrit 41.4 % (42.0-52.0); Hemoglobin 13.6 g/dl (14.0-18.0); Imm Gran Abs Auto 0.04 X10*3/uL (0.00-0.03); Imm Gran Pct Auto 0.4 % (0.0-0.4); Lymphocytes Absolute Auto 3.3 X10*3/uL (1.2-4.9); Mean Corpuscular HGB Conc 32.9 g/dl (31.0-36.0); Mean Corpuscular Hemoglobin 27.8 pg (27.0-33.0); Mean Corpuscular Volume 84.5 fL (80.0-98.0); NRBC Abs Auto 0.000 X10*3/uL (0.0-0.012); NRBC Pct Auto 0.0 /100WBC (0.0-0.2); Platelet Count 422 X10*3/uL (160-400); Red Blood Count 4.90 X10*6/uL (4.60-5.80); White Blood Count 9.5 X10*3/uL (4.8-10.8)
[2025-07-07 01:18] VITALS: BP 138/63; PULSE 91; RESP 14; TEMP 36.4; O2SAT 93
--- OUTSIDE RECORDS SUMMARY | 2025-07-07 01:26 | XMS_ITS | Clinical Summary ---
Author Organization [employer] [facility] Address [address] [place] [address] Care Team Providers Care Clerical And Administrative Workers Name Role Phone Unavailable Primary Care Provider Unavailabl e Encounters Date Type Department Care Team Description 06/22/2025 Patient Outreach [facility] [address] [place] [address] Lacey Harman 05/08/2025 Population Health Risk Score [facility] (C3) Department [address] [address] Provider, Population Health Generic from Last 3 Months Social History Tobacco Use Types Packs/Day Years Used Date Smoking Tobacco: Never Assessed Sex and Gender Information Value Date Recorded Sex Assigned at Not on file Legal Sex Male 2:38 AM EDT Gender Identity Not on file Sexual Orientation Not on file Plan of Treatment Health Maintenance Due Date Last Done Comments Depression Screening 1982 HIV Screening 1982 Lipid Panel 1982 SDOH Screening 1982 Disability Screening 1982 Alcohol/Substance Use Screening 1994 Tobacco Screening 1994 Family Planning (PISQ) 1997 HPV Vaccines (1 - Male 3-dos e series) 1997 Hepatitis C Screening 2000 Hepatitis B Vaccines (1 of 3 - 19+ 3-dose series) 2001 Pneumococcal Vaccine: Pediat rics (0 to 5 Years) and At-Risk Patients (6 to 49) Years (1 of 2 - PCV) 2001 COVID-19 Vaccine ( - 2024-2 6 season) 2025 Influenza Vaccine (#1) 2025 DTaP/Tdap/Td Vaccines (2 - T d or Tdap) 05/31/2032 05/31/2022 Zoster Vaccines (1 of 2) 2032 RSV Patients and Pa tients Aged 60 years or older (1 - 1-dose 75+ series) 2057 HIB Vaccines Aged Out No longer eligi [...] patient's age to complete this topic Meningococcal Vaccine Aged Out No scott gómez eligible based on patient's age to complete this topic RSV under 20 months Aged Out No longe r eligible based on patient's age to complete this topic Rotavirus Vaccines Aged Out No longer eligible based on patient's age to complete this topic
--- OUTSIDE RECORDS SUMMARY | 2025-07-07 01:26 | XMS_ITS | Clinical Summary ---
Author Organization [facility] Address [address] [place] [address] Phone Care Team Providers Care Telecommunicator Supervisor Name Role Phone Komal Lopez Primary Care Provider [phone] Allergies No known active allergies Encounters Date Type Department Care Team Description 04/10/2025 2:34 AM EDT - 04/10/2025 2:42 AM EDT Emergency [facility] Emergency [address] [place] [address] Puncture wound (Primary Dx); Heroin abuse ([facility] V24, [facility] V28) Discharge Disposition: Home or Self Care from Last 3 Months Surgical History Surgery Date Site/Laterality Comments OTHER SURGICAL HISTORY 04/11/2022 PROCEDURE: [place] CAMPA FACETECTOMY & FORAMOTOMY 1 VRT SGM [...] Sign Reading Time Taken Comments Blood Pressure 122/99 04/10/2025 1:43 AM EDT Pulse 100 04/10/2025 1:43 AM EDT Temperature 37.1 C (98.7 F) 04/10/2025 1:43 AM EDT Respiratory Rate - - Oxygen Saturation 96% 04/10/2025 1:43 AM EDT Inhaled Oxygen Concentration - - Weight 90.7 kg (200 lb) 04/10/2025 1:43 AM EDT Height 172.7 cm (5' 8 ) 04/10/2025 1:43 AM EDT Body Mass Index 30.41 04/10/2025 1:43 AM EDT Plan of Treatment Health Maintenance Due Date Last Done Comments Hepatitis A Vaccines (1 of 2 - Risk 2-dose series) 2001 Hepatitis B Vaccines (1 of 3 - 19+ 3-dose series) 2001 HPV Vaccines (1 - 3-dose SCD M series) 2009 Cholesterol Screening (Lipid Panel) 07/08/2022 HIV Screening 07/08/2022 Hepatitis C Screening 07/08/2022 Social Influencers of Health Screening 07/08/2022 Depression Screening 08/06/2024 COVID-19 Vaccine (1 - 2024-2 6 season) 2025 Influenza Vaccine (#1) 2025 DTaP,Tdap,and Td Vaccines (2 - Td or Tdap) 05/31/2032 05/31/2022 RSV Immunization Adult Patie nts (1 - 1-dose 75+ series) 2057 HIB [...] on patient's age to complete this topic Procedures Procedure Name Priority Date/Time Associated Diagnosis Comments XR HUMERUS 2+ VIEWS LEFT STAT 04/10/2025 2:09 AM EDT from Last 3 Months Results * XR Humerus 2+ Views Left (04/10/2025 2:09 AM EDT) Anatomical Region Laterality Modality Upper Extremities, Humerus Left Radio graphic Imaging 04/10/2025 8:59 AM EDT Impressions 04/10/2025 9:05 AM EDT FINDINGS/IMPRESSION: No metallic foreign bodies. Joint spaces are maintained. No acute fracture or dislocation. No focal soft tissue swelling. -------- FINAL REPORT -------- Dictated By: CLEMENCIA SHIPLEY Dictated Date: 04/10/2025 08:59 ET Assigned Physician: CLEMENCIA SHIPLEY Reviewed and Electronically Signed By: CLEMENCIA SHIPLEY Signed Date: 04/10/2025 09:05 ET Workstation ID: [id number] Transcribed By: Self Edit Transcribed Date: 04/10/2025 08:59 ET Narrative 04/10/2025 9:05 AM EDT XR HUMERUS 2+ VIEWS LEFT INDICATION: Pain TECHNIQUE: XR HUMERUS 2+ VIEWS LEFT COMPARISON: No priors available. Procedure Note Clemencia Shipley MD - 04/10/2025 XR HUMERUS 2+ VIEWS LEFT INDICATION: Pain TECHNIQUE: XR HUMERUS 2+ VIEWS LEFT COMPARISON: No priors available. IMPRESSION: FINDINGS/IMPRESSION: No metallic foreign bodies. Joint spaces aremaintained. No acute fracture or dislocation. No focal soft tissueswelling. -------- FINAL REPORT -------- Dictated By: CLEMENCIA SHIPLEY Dictated Date: 04/10/2025 08:59 ET Assigned Physician: CLEMENCIA SHIPLEY Reviewed and Electronically Signed By: CLEMENCIA SHIPLEY Signed Date: 04/10/2025 09:05 ET Workstation ID: [id number] Transcribed By: Self Edit Transcribed Date: 04/10/2025 08:59 ET Servando Gama MD IMG XR PROCEDURES Final Resu lt from Last 3 Months Insurance [facility] MEDICAID - [place] Care Teams Telecommunicator Supervisor Relationship Specialty Start Date End Date Komal Lopez [address] [place] [id number] PCP - General 05/01/22
--- NOTE | 2025-07-07 07:04 | ED_ITS ---
HPI - General Adult General Chief complaint: Skin/Abscess/Foreign Body Stated complaint: Wound Time Seen by Provider: 07/07/25 07:03 Source: patient Mode of arrival: ambulatory Limitations: no limitations History of Present Illness ED Provider: Jaki Gadrner PA-C HPI narrative: Patient is a 44 year old assigned male at with a history of asthma, cocaine abuse, latent TB, and IVDU presenting to the emergency department today with bilateral arm abscesses. Patient states that over the last 2 weeks he has had worsening bilateral upper extremity abscesses / infection. Patient denies any other complaints at this time. Onset (ago): week(s) Relieving factors: none Exacerbating factors: none Associated symptoms: denies other symptoms Treatments prior to arrival: none Related Data Home Medications ?Medication ?Instructions ?Recorded ?Confirmed methadone 10 mg/mL oral 85 mg PO DAILY@0800 07/07/25 07/07/25 concentrate (Methadone Intensol) Previous Rx's ?Medication ?Instructions ?Recorded levofloxacin 750 mg tablet 750 mg PO DAILY #7 tabs amoxicillin 875 mg-potassium 1 tab PO BID #20 tabs clavulanate 125 mg tablet ibuprofen 600 mg tablet 600 mg PO Q6H PRN fever or p ain 02/19/25 #30 tabs Allergies Allergy/AdvReac Type Severity Reaction Status Date / Time No Known Allergies Allergy Verified 07/06/25 21:00 Review of Systems 2 Constitutional: Constitutional: Reports as per HPI Eyes: Eyes: Reports as per HPI ENT: Reports as per HPI Cardiovascular: Cardiovascular: Reports as per HPI Respiratory: Respiratory: Reports as per HPI Gastrointestinal: Gastrointestinal: Reports as per HPI Genitourinary: Genitourinary: Reports as per HPI Musculoskeletal: Musculoskeletal: Reports as per HPI Integumentary/Breasts: Skin/Breast: Reports as per HPI Neurologic: Reports as per HPI Psychiatric: Psychiatric: Reports as per HPI Endocrine: Endocrine: Reports as per HPI Hematologic/Lymphatic: Hematologic/Lymphatic: Reports as per HPI Allergic/Immunologic: Allergic/Immunologic: Reports as per HPI PMF Past Medical History Attestation statement: The following information was validated with the patient. Source: old records reviewed and nursing notes reviewed Medical History Elevated troponin Heroin overdose Asthma with exacerbation Latent tuberculosis Asthma Substance abuse Social History Social History Household Members: Spouse Housing: Apartment Do you presently have visiting nurse or other home services: No Alcohol intake: never Patient Tobacco Use Status: Current everyday Tobacco user Cigarette Packs Per Day: 1.5 Cigarettes Per Day: 30.0 Second Hand Smoke Exposure: No Substance Use Type: Heroin Advance Directives: No Advance Directives Information Provided: Yes service: No Current occupational status: unemployed Physical Exam ED Vital Signs: Vital Signs - 24 hr 07/06/25 20:57 07/07/25 01:18 07/07/25 07:53 Temperature 98.1 F 97.6 F Pulse Rate 108 H 91 88 Respiratory Rate 20 14 16 Blood Pressure 117/81 138/63 112/75 Pulse Oximetry 96 93 98 Oxygen Delivery Method Room Air Room Air Room Air 07/07/25 07:54 Temperature 98.0 F Pulse Rate Respiratory Rate Blood Pressure Pulse Oximetry Oxygen Delivery Method BMI result Body Mass Index 30.0 Const General: cooperative, no acute distress, alert and awake Nutritional Appearance: well nourished Orientation/consciousness: patient oriented x3 HENMT Head: Yes normal to inspection and Yes atraumatic Ears: hearing grossly normal bilaterally and external ears normal General nose exam: Normal external nose present, no nasal discharge noted and no epistaxis Face and sinus: Yes normal facial exam, No abrasion and No laceration Mouth: Normal oral and palatal mucosa present, no drooling and no muffled voice Eyes General: appearance normal, both eyes and all related structures Periorbital: periorbital findings normal Eyelids: Yes eyelids normal Conjunctivae: conjunctivae normal Pupils: Equal, round and reactive pupils present EOM: EOMs intact bilaterally Neck Neck: Yes normal visual inspection and Yes full ROM Resp Effort & Inspection: normal respiratory effort and able to speak in complete sentences Neuro General: patient oriented x3, moves all extremities and CN's II-XI intact bilaterally Cranial nerves: Yes Equal, round and reactive pupils present Cognition (Neuro): normal cognition Extrem Other: General: Yes full ROM and Yes capillary refill normal Psych Appearance: grossly normal Mental Status: mental status grossly normal Affect: normal affect Attitude: cooperative Thought process: Normal thought process present Thought content: Normal thought content present Insight: Good insight present (Psych) Medications Administered Discontinued Medications Generic Name Dose Route Start Last Admin Trade Name Freq PRN Reason Stop Dose Admin Vancomycin HCl 2,000 mg in 500 mls @ 250 mls/hr 07/07/25 07:17 07/07/25 08:50 Vancomycin/Ns IV 07/07/25 09:16 250 mls/hr ONCE ONE Administration Piperacillin Sod/Tazobactam 50 mls @ 100 mls/hr 07/07/25 07:17 07/07/25 08:55 Sod 3.375 gm/ Sodium Chloride IV 07/07/25 07:46 Infused ONCE ONE Infusion Methadone HCl 85 mg 07/07/25 08:50 07/07/25 09:01 Methadone Hcl 20 Mg/2 Ml Oral.Conc PO 07/07/25 08:51 85 mg ONCE ONE Administration Procedures Ultrasound ED POC Ultrasound: Skin EMERGENCY ULTRASOUND REPORT?Point of Care Skin/Soft Tissue, left biceps area Indications: Evaluation for cellulitis versus abscess Findings: Patient has phlegm on, cellulitic changes, depth up to 1-1/2-2 cm, there was a vessel in the phlegm on but no blood flow likely clotted off Impression: Cellulitic and abscess changes Medical Decision Making Medical Decision Making MDM Narrative: Patient is a 44 year old assigned male at with a history of asthma, cocaine abuse, latent TB, and IVDU presenting to the emergency department today with bilateral arm abscesses. Patient's physical exam was as noted in the physical exam portion of this note. Patient's blood work showed an ESR of 37 and CRP of 0.80 but otherwise unremarkable. Patient's left and right humerus x-rays showed no acute process. Patient was given IV Vancomycin + Zosyn. I spoke with the hospitalist team who suggested the patient's abscess be incised and drained. I explained to the team that because of the location of the abscess, I was uncomfortable performing a bed side incision and drainage procedure when it potentially involved a vascular structure and I recommended they obtain a surgical consult. The hospitalist team suggested I consult with my attending physician on the matter. I did consult with Dr. Webber, my attending physician, who agreed with medical admission for continued IV antibiotics and after he performed a bedside ultrasound to the area, he agreed with the patient not having a bedside incision and drainage performed in the emergency department. He also recommended a surgical consult be obtained upon medical admission. I explained my attending physician's recommendation to the hospitalist team who then agreed to admission of this patient. I explained my physical exam findings as well as all test results to the patient. I answered all questions asked by the patient. Patient verbalized agreement and understanding with this treatment plan and admission. 9:41 AM 07/07/2025 (Dr. Phuc Webber): Bedside ultrasound performed on left upper extremity, there is both cellulitic and phlegmon changes likely abscess changes there is a vessel that is present without active blood flow likely clotted off from IV drug use. This area needs to be explored , irrigated and loculations broken up, due to proximity of vessel recommend general surgery consult, may have to be performed in the OR. Differential Diagnosis Differential Diagnoses: The differential diagnosis associated with the presentation includes Abscess IVDU Cellulitis Admission/Observation Consideration of admission/observation: Escalation of care including admission/observation considered Patient admitted as noted in the MDM Rationale portion of this note. Consult Healthcare Provider Management of the patient was discussed with: Hospitalist (agreed to admission as noted in the MDM Rationale portion of this note. ) and Classification Inspector (consulted with my attending physician as noted in the MDM Rationale portion of this note. ) Lab Data [facility] Lab Attestation statement: I reviewed the patient's lab results. My interpretation of these results are in the MDM Rationale portion of this note. 07/06/25 21:35 07/07/25 07:44 Labs: Lab Results 07/06/25 07/07/25 Range/Units 21:35 07:44 WBC 9.5 (4.8-10.8) X10*3/uL RBC 4.90 (4.60-5.80) X10*6/uL Hgb 13.6 L (14.0-18.0) g/dl Hct 41.4 L (42.0-52.0) % MCV 84.5 (80.0-98.0) fL MCH 27.8 (27.0-33.0) pg MCHC 32.9 (31.0-36.0) g/dl RDW 12.2 (11.0-16.0) % Plt Count 422 H D (160-400) X10*3/uL MPV 8.7 L (9.4-12.4) fL Immature Gran % (Auto) 0.4 (0.0-0.4) % Neut % (Auto) 53.7 (45-73) % Lymph % (Auto) 34.4 (20-40) % Smith % (Auto) 10.6 (2-11) % Eos % (Auto) 0.5 (0-4) % Baso % (Auto) 0.4 (0-2) % Lymph # (Auto) 3.3 (1.2-4.9) X10*3/uL Smith # (Auto) 1.0 (0.1-1.2) X10*3/uL Eos # (Auto) 0.1 (0.0-0.4) X10*3/uL Baso # (Auto) 0.0 (0.0-0.2) X10*3/uL Abs Immat Gran (auto) 0.04 H (0.00-0.03) X10*3/uL Absolute Neuts (auto) 5.1 (2.0-8.3) x10*3/uL Absolute Nucleated RBC 0.000 (0.0-0.012) X10*3/uL Nucleated RBC % (auto) 0.0 (0.0-0.2) /100WBC ESR 37 H (0-15) MM/HR Sodium 143 (135-145) mmol/L Potassium 4.4 (3.3-5.1) mmol/L Chloride 108 (96-108) mmol/L Carbon Dioxide 29 (22-29) mmol/L Anion Gap 10 L (12-20) BUN 10 (9-16) mg/dL Creatinine 0.76 (0.5-1.4) mg/dL Estim Creat Clear Calc 137.6 Estimated GFR > 60 Random Glucose 101 (60-115) mg/dL Calcium 9.3 (8.4-10.2) mg/dL Total Bilirubin 0.5 (0.0-1.0) mg/dL AST 116 H (5-37) U/L ALT 85 H (0-40) U/L Alkaline Phosphatase 71 (39-117) U/L C-Reactive Protein 0.80 H (< or = 0.50) mg/dL Total Protein 8.0 (6.5-8.0) g/dL Albumin 3.6 (3.5-5.0) g/dL Independent Interpretation I performed an independent interpretation of an: Plain X-Ray Interpretation: My interpretation is in agreement with the radiologist's impression of these imaging studies as written below. EXAMINATION: XR HUMERUS, LEFT CLINICAL INFORMATION: wound, concern for osteo COMPARISON: None available. TECHNIQUE: AP and lateral views of the left humerus. FINDINGS: No acute cortical disruption. No lytic or blastic lesions. No periosteal bone reaction. No bony erosion. No metallic or radiopaque foreign body. No subcutaneous emphysema. XR/XR humerus LT IMPRESSION: Normal left humerus x-ray. Electronically signed by: Jett Fernandez MD 07/07/2025 08:10 AM [employer] RP Dictated By: Jett Byers MD Signed By: Electronically signed by Jett Babin MD 07/07/25 0805 EXAMINATION: XR HUMERUS RIGHT HISTORY: wound, concern for osteo COMPARISON: There are no prior studies available for comparison. FINDINGS: AP and lateral views of the right humerus are submitted. Osseous mineralization is normal. There is no fracture or dislocation. The visualized shoulder and elbow joint spaces are preserved. The soft tissues are unremarkable. XR/XR humerus RT IMPRESSION: Unremarkable examination of the right humerus. Electronically signed by: Mikie Padilla MD 07/07/2025 08:09 AM EST RP Dictated By: Mikie Padilla MD Signed By: Electronically signed by Mikie Padilla MD 07/07/25 0809 Radiology Impression Discussion of test interpretation with radiology: I have reviewed the radiologist's reading. Critical Care Time Critical Care Time Critical Care Time: Yes Total Critical Care Time: 44 Attestation: I spent 44 minutes of Critical Care Time with this patient. This does not include time spent on separately reported billable procedures. Discharge Plan Discharge Clinical Impression: Abscess, Active intravenous drug use Cellulitis Qualifiers: Site of cellulitis: extremity Site of cellulitis of extremity: upper extremity Laterality: unspecified laterality Qualified Code(s): L03.119 - Cellulitis of unspecified part of limb Patient Disposition: Admitted As Inpatient
--- NOTE | 2025-07-07 07:48 | HE.PHANOTE ---
Re Methadone Pt receives 85mg from [facility]. Last dose on 07/04/25 @1230
[2025-07-07 07:53] VITALS: BP 112/75; PULSE 88; RESP 16; O2SAT 98
[2025-07-07 07:54] VITALS: TEMP 36.7
[2025-07-07 08:11] LABS: Alanine Aminotransferase 85 U/L (0-40); Albumin Level 3.6 g/dL (3.5-5.0); Alkaline Phosphatase 71 U/L (39-117); Anion Gap 10 (12-20); Aspartate Amino Transferase 116 U/L (5-37); Blood Urea Nitrogen 10 mg/dL (9-16); Calcium 9.3 mg/dL (8.4-10.2); Carbon Dioxide 29 mmol/L (22-29); Chloride 108 mmol/L (96-108); Creatinine Clr Calc Pharmacy 137.6; Estimated Glomerular Filt Rate > 60; Potassium 4.4 mmol/L (3.3-5.1); Sodium 143 mmol/L (135-145); Total Protein 8.0 g/dL (6.5-8.0)
--- NOTE | 2025-07-07 08:37 | PC.NURSE ---
Accepted care at at 7am. Pt anxious, has not had methadone since 07/04according to clinic- Provider aware and verification done and sent to pharmacy. Calling pharmacy to see if order can be expedited. Pt with large open red weepng cellulitic area left upper arm. and also has one left upper arm but not open,only red,warm with small scab.Pt states he aches all over. VSS seen by provider. IV access in and Abx started once pt arrived back from imaging.
[2025-07-07] MEDS: vancomycin/NS 2,000 MG/500 ML PLAST..BAG 250 MG IV (08:50)
[2025-07-07] MEDS: methADONE HCl 20 MG/2 ML ORAL.CONC 85 MG PO (09:01)
[2025-07-07 09:24] LABS: Erythrocyte Sedimentation Rate 37 MM/HR (0-15)
[2025-07-07 09:31] VITALS: BP 120/81; PULSE 92; RESP 16; O2SAT 96
--- NOTE | 2025-07-07 09:33 | P.HPHOSP_ITS ---
History of Present Illness Date of Service: 07/07/25 Chief Complaint: Generalized pain/ fevers. 44-year-old gentleman, with past medical history significant for asthma, active IV heroin/cocaine use, latent TB, presented to [facility] ED due to generalized pain associated with fever, chills of 2-3 days' duration. Patient is homeless has been living in his car, has been using IV heroin and IV cocaine in last several days . Patient injects heroin mostly in both upper extremities and has noticed swelling, redness left upper arm of several days duration with purulent drainage. Patient has not injected in right arm recently. patient has been on methadone for last 2 months. Patient noticed generalized pain mostly both upper extremities ,his tongue and teeth. In emergency room patient noted to be afebrile , tachycardic with pulse 108, respiratory rate of 20. Labs unremarkable. in ED patient treated with IV vanco, IV Zosyn and 1 dose of IV methadone and now being admitted to [facility] for continued treatment of left upper extremity cellulitis with abscess. Review of Systems 2 Review of Systems: General no headache ,+ dizziness,+ fever,+chills. CVS no chest pain, no palpitation. Respiratory no cough, no respiratory distress. Gastrointestinal Complaining of intermittent nausea, vomiting and diarrhea. Musculoskeletal generalized pain, worse in both upper extremities. All other symptoms reviewed and are negative. [facility] Medical History Elevated troponin Heroin overdose Asthma with exacerbation Latent tuberculosis Asthma Substance abuse Social History Household Members: Other Household Members Other:: homeless Housing: Other Housing Other:: homeless Do you presently have visiting nurse or other home services: No Alcohol intake: never Patient Tobacco Use Status: Current everyday Tobacco user Tobacco use type: Cigarette Cigarette Packs Per Day: 1.5 Cigarettes Per Day: 30.0 Second Hand Smoke Exposure: No Substance Use Type: Heroin Currently Displaying Signs/Symptoms of Drug Intoxication Withdrawal: No Have you been hit, kicked, punched, or otherwise hurt by someone within the past year? If so, by whom?: No Do you feel safe in your current relationship?: Yes Is there a partner from a previous relationship who is making you feel unsafe now?: No Are you made to feel afraid or neglected: No Advance Directives: No Advance Directives Information Provided: Yes Do you have a plan to hurt others: No Plan Recently lost weight without trying: Yes How much weight loss: 14-23 pounds Eating poorly because of decreased appetite: Yes Nutrition screen score: 5 Nutrition Risks: Poor intake 0-25% >4 days service: No Current occupational status: unemployed Meds Allergies Allergy/AdvReac Type Severity Reaction Status Date / Time No Known Allergies Allergy Verified 07/06/25 21:00 Active Medications: Current Medications Acetaminophen (Acetaminophen 325 Mg Tablet) 650 mg PO Q6H PRN PRN Reason: Pain, Mild 1-3,fever,headache Al Hydroxide/Mg Hydroxide (Magnesium Hydrox/Alum Hydrox 30 Ml Oral.Susp) 30 ml PO Q4H PRN PRN Reason: Heartburn Calcium Carbonate (Calcium Carbonate 750 Mg Tab.Chew) 750 mg PO Q4H PRN PRN Reason: Heartburn Docusate Sodium (Docusate Sodium 100 Mg Capsule) 100 mg PO BID MICHAEL Vancomycin HCl 1,250 mg/ (Sodium Chloride) 250 mls @ 166.667 mls/hr IV Q12H MICHAEL Ibuprofen (Ibuprofen 400 Mg Tablet) 400 mg PO Q6H PRN PRN Reason: Pain, Moderate(Pain Scale 4-6) Magnesium Hydroxide (Milk Of Magnesia 30 Ml Oral.Susp) 30 ml PO DAILY PRN PRN Reason: Constipation Melatonin (Melatonin 3 Mg Tablet) 6 mg PO BEDTIME PRN PRN Reason: Insomnia Nicotine Polacrilex (Nicotine Polacrilex Lozenge 2 Mg Lozenge) 2 mg BUCCAL Q2H PRN PRN Reason: Nicotine Cravings Ondansetron HCl (Ondansetron Hcl 4 Mg/2 Ml Vial) 4 mg IVPUSH Q8H PRN PRN Reason: Nausea and Vomiting Pharmacy Consult (Consult Rx Vancomycin Dosing) 1 each MISCELLANE DAILY PRN PRN Reason: Consult order Polyethylene Glycol (Polyethylene Glycol 3350 17 Gm Powd.Pack) 17 gm PO DAILY PRN PRN Reason: Constipation Sodium Chloride (0.9 % Sodium Chloride Flush 3 Ml Syringe) 3 ml IVFLUSH QSHIFT [facility] Home Medications ?Medication ?Instructions ?Recorded ?Confirmed ?Last Taken ?Type amlodipine 5 mg tablet 7.5 mg PO DAILY 07/07/2509/30 Unknown History methadone 10 mg/mL oral 85 mg PO DAILY@0800 07/07/25 07/07/25 07/04/25 07:00 History concentrate (Methadone Intensol) Physical Exam 2 Vital Signs and Narrative: Vital Signs: Last Vital Signs Temp 98.0 F 07/07/25 07:54 Pulse 92 07/07/25 09:31 Resp 16 07/07/25 09:31 BP 120/81 07/07/25 09:31 Pulse Ox 96 07/07/25 09:31 O2 Del Method Room Air 07/07/25 09:31 BMI result Body Mass Index 30.0 Const: Other: General somnolent, easily arousable, in no acute distress. HEENT: Pupils equal round reactive to light and accommodation, no nystagmus Neck no JVD. CVS regular rate rhythm, Respiratory lungs clear to auscultation, no respiratory distress, no wheeze, no rhonchi. Gastrointestinal abdomen soft, non tender, bowel sounds audible, no no no guarding , no rigidity. Extremities no edema. Neuro moving all 4 extremity, speech clear. Upper extremities left arm abscess no drainage noted, tender to palpation, multiple small abscesses right upper extremities with no drainage, tender to palpation.(see picture in ED notes.) Results Labs 07/06/25 21:35 07/08/25 05:50 Labs: Laboratory Results - last 24 hr 07/06/25 07/07/25 21:35 07:44 MCV 84.5 MCH 27.8 MCHC 32.9 RDW 12.2 Plt Count 422 H D MPV 8.7 L Immature Gran % (Auto) 0.4 Neut % (Auto) 53.7 Lymph % (Auto) 34.4 [place] % (Auto) 10.6 Eos % (Auto) 0.5 Baso % (Auto) 0.4 Lymph # (Auto) 3.3 [place] # (Auto) 1.0 Eos # (Auto) 0.1 Baso # (Auto) 0.0 Abs Immat Gran (auto) 0.04 H Absolute Neuts (auto) 5.1 Absolute Nucleated RBC 0.000 Nucleated RBC % (auto) 0.0 ESR 37 H Anion Gap 10 L Estim Creat Clear Calc 137.6 Estimated GFR > 60 Random Glucose 101 Calcium 9.3 Total Bilirubin 0.5 AST 116 H ALT 85 H Alkaline Phosphatase 71 C-Reactive Protein 0.80 H Total Protein 8.0 Albumin 3.6 Imaging Radiologist's Impressions: Impressions Humerus X-Ray 07/07/25 08:01 IMPRESSION: Unremarkable examination of the right humerus. Electronically signed by: Mikie Padilla MD 07/07/2025 08:09 AM EST RP Humerus X-Ray 07/07/25 08:02 IMPRESSION: Normal left humerus x-ray. Electronically signed by: Jett Fernandez MD 07/07/2025 08:10 AM EST RP Assessment and Plan (1) Cocaine abuse: Status: Acute (2) Active intravenous drug use: Status: Acute (3) Opioid abuse: Status: Acute (4) Abscess: Status: Acute (5) Cellulitis: Qualifiers: Laterality: unspecified laterality Site of cellulitis: extremity Site of cellulitis of extremity: upper extremity Qualified Code(s): L03.119 - Cellulitis of unspecified part of limb Status: Acute Plan 44-year-old gentleman with history of active IV drug use presented with generalized pain, fever on and off, on examination noted to have left upper extremity cellulitis/abscess with tachycardia, tachypnea, will be admitted to [facility] for continued antibiotic treatment and surgical consultation for possible I and D. Left upper extremity cellulitis/abscess. Will check MRSA nares, continue IV vancomycin, follow blood cultures Surgical consult for I and D Follow clinical course. IV cocaine/heroin use disorder Monitor for withdrawal, Continue methadone Addiction team consult History of tobacco use disorder patient denies active tobacco use, will add as needed nicotine gum. History of asthma no acute exacerbation, as needed albuterol inhaler DVT prophylaxis early ambulation. Quality Stroke Does the patient have a stroke diagnosis?: No VTE Prior VTE?: No VTE Risk Level:: Medical - low VTE Device Contraindication: Treatment Not Indicated VTE Drug Contraindication: Treatment Not Indicated
--- NOTE | 2025-07-07 09:53 | PHA.MEDREC ---
Addendum entered by Karla Nina RPh 07/07/25 10:04: Reviewed by [facility] Original Note: Pharmacy Consult ? Medication Reconciliation Pharmacy has completed the medication reconciliation. Spoke with pt and he confirmed his medications. Pt confirmed he is taking Amlodipine 5mg tab 1 1/2 (7.5mg) tabs QD and his Methadone 85mg QD and is not taking anything else at this time.
--- NOTE | 2025-07-07 10:10 | P.CONGS_ITS ---
History of Present Illness Consult details Consult date: 07/07/25 <Sharlene Barry PA-C - Last Filed: 07/07/25 10:27> Reason for consult: wound care <RAVI Castillo Last Filed: 07/07/25 10:27> Requesting physician: Ella Ascencio <RAVI Castillo Last Filed: 07/07/25 10:27> Narrative: 44 year old assigned male with PMH of asthma, cocaine abuse, latent TB, and IVDU presenting to the emergency department today with bilateral arm swelling and pain. He reports two weeks ago he noticed a lump and redness on his left arm associated with pain. He reports it has been intermittently draining when he massages the area. It however has worsened and become more painful. He also notes swelling and redness of his right arm that began yesterday. He denies fevers, chills, nausea, vomiting. He reports injecting heroin and cocaine into the areas. Last drug use was 07/05/25 per patient. Work up in the ED included CBC, BMP. No leukocytosis. B/l forearm xrays were obtained which showed no acute cortical disruption, no periosteal bone reaction, no bony erosion, no metallic or radiopaque foreign body, no subcutaneous emphysema. He was admitted to the hospitalist service for further treatment of the b/l arm cellulitis. He was started on IV vanco. General surgery was consulted for concern of abscess. He also reports swelling and pain of his right heel. He thinks he stepped on something. This began yesterday. <RAVI Castillo Last Filed: 07/07/25 10:27> Review of Systems 2 Constitutional: Constitutional: Denies chills and Denies fever(s) < RAVI Castillo Last Filed: 07/07/25 10:27> ENT: Denies dizziness <RAVI Castillo Last Filed: 07/07/25 10:27> Cardiovascular: Cardiovascular: Denies chest pain and Denies dyspnea < RAVI Castillo Last Filed: 07/07/25 10:27> Respiratory: Respiratory: Denies cough and Denies dyspnea <Sharlene Barry PA-C Last Filed: 07/07/25 10:27> Gastrointestinal: Gastrointestinal: Denies abdominal pain, Denies nausea and Denies vomiting <Sharlene Barry PA-C Filed: 07/07/25 10:27> Musculoskeletal: Musculoskeletal: Denies numbness and Denies tingling < Sharlene Barry PA-C Last Filed: 07/07/25 10:27> Integumentary/Breasts: Skin/Breast: Reports as per HPI <Sharlene Barry PA-C Filed: 07/07/25 10:27> Neurologic: Denies dizziness, Denies numbness and Denies tingling < Sharlene Barry PA-C Filed: 07/07/25 10:27> PMF Past Medical History Medical History: Medical History Elevated troponin Heroin overdose Asthma with exacerbation Latent tuberculosis Asthma Substance abuse <Sharlene Barry PA-C Filed: 07/07/25 10:27> Social History Social History: Social History Household Members: Other Household Members Other:: homeless Housing: Other Housing Other:: homeless Do you presently have visiting nurse or other home services: No Alcohol intake: never Patient Tobacco Use Status: Current everyday Tobacco user Tobacco use type: Cigarette Cigarette Packs Per Day: 1.5 Cigarettes Per Day: 30.0 Second Hand Smoke Exposure: No Substance Use Type: Heroin service: No Current occupational status: unemployed <Sharlene Barry PA-C Last Filed: 07/07/25 10:27> Meds Allergies/Adverse reactions: Allergies Allergy/AdvReac Type Severity Reaction Status Date / Time No Known Allergies Allergy Verified 07/06/25 21:00 <Sharlene Barry PA-C Filed: 07/07/25 10:27> Active Medications: Current Medications Acetaminophen (Acetaminophen 325 Mg Tablet) 650 mg PO Q6H PRN PRN Reason: Pain, Mild 1-3,fever,headache Al Hydroxide/Mg Hydroxide (Magnesium Hydrox/Alum Hydrox 30 Ml Oral.Susp) 30 ml PO Q4H PRN PRN Reason: Heartburn Calcium Carbonate (Calcium Carbonate 750 Mg Tab.Chew) 750 mg PO Q4H PRN PRN Reason: Heartburn Docusate Sodium (Docusate Sodium 100 Mg Capsule) 100 mg PO BID MICHAEL Vancomycin HCl 1,500 mg/ (Sodium Chloride) 500 mls @ 333.333 mls/hr IV Q12H MICHAEL Ibuprofen (Ibuprofen 400 Mg Tablet) 400 mg PO Q6H PRN PRN Reason: Pain, Moderate(Pain Scale 4-6) Magnesium Hydroxide (Milk Of Magnesia 30 Ml Oral.Susp) 30 ml PO DAILY PRN PRN Reason: Constipation Melatonin (Melatonin 3 Mg Tablet) 6 mg PO BEDTIME PRN PRN Reason: Insomnia Nicotine Polacrilex (Nicotine Polacrilex Lozenge 2 Mg Lozenge) 2 mg BUCCAL Q2H PRN PRN Reason: Nicotine Cravings Ondansetron HCl (Ondansetron Hcl 4 Mg/2 Ml Vial) 4 mg IVPUSH Q8H PRN PRN Reason: Nausea and Vomiting Pharmacy Consult (Consult Rx Vancomycin Dosing) 1 each MISCELLANE DAILY PRN PRN Reason: Consult order Polyethylene Glycol (Polyethylene Glycol 3350 17 Gm Powd.Pack) 17 gm PO DAILY PRN PRN Reason: Constipation Sodium Chloride (0.9 % Sodium Chloride Flush 3 Ml Syringe) 3 ml IVFLUSH QSHIFT [facility] <Sharlene Barry PA-C - Last Filed: 07/07/25 10:27> Home medications: Home Medications ?Medication ?Instructions ?Recorded ?Confirmed ?Last Taken ?Type amlodipine 5 mg tablet 7.5 mg PO DAILY 07/07/2509/30 Unknown History methadone 10 mg/mL oral 85 mg PO DAILY@0800 07/07/25 07/07/25 07/04/25 07:00 History concentrate (Methadone Intensol) <Sharlene Barry PA-C - Last Filed: 07/07/25 10:27> Physical Exam 2 Vital Signs: Vital Signs: Last Vital Signs Temp 98.0 F 07/07/25 07:54 Pulse 92 07/07/25 09:31 Resp 16 07/07/25 09:31 BP 120/81 07/07/25 09:31 Pulse Ox 96 07/07/25 09:31 O2 Del Method Room Air 07/07/25 09:31 BMI result Body Mass Index 30.0 <Sharlene Robertsdeau RAVI Smith Last Filed: 07/07/25 10:27> Const: General: comfortable, no acute distress, alert and anxious < Sharlene Robertsdeau RAVI Smith Last Filed: 07/07/25 10:27> Orientation/consciousness: patient oriented x3 <Sharlene Robertsdeau RAVI Smith Last Filed: 07/07/25 10:27> Resp: Effort & Inspection: normal respiratory effort <Sharlene Robertsdeau RAVI Smith Last Filed: 07/07/25 10:27> Neuro: General: patient oriented x3 and moves all extremities <Sharlene Landtashia RAVI Smith Last Filed: 07/07/25 10:27> Extrem: Other: multiple linear well healed scars present on bilateral forearms left arm- significant amount of indurated tissue just proximal to AC fossa with surrounding erythema and mild edema, open wound measuring 1 cm x 2cm which was probed circumferentially into a cavity without evacuation of any drainage, no necrosis, no fluctuance appreciated at site or at multiple tract mauro distally with induration right arm- tract mauro again present at AC fossa with mild induration and edema as well as ecchymosis medially, no fluctuance appreciated, small open wound without drainage noted, no fluctuance right foot with mild edema of heel; no erythema, tender to touch, perhaps some fluctuance versus bogginess, pinpoint area centrally ?foreign body <Sharlene Landbodeau RAVI Smith Last Filed: 07/07/25 10:27> Results Labs Result diagrams: 07/09/25 09:12 07/09/25 09:12 <Sharlene Landtashia RAVI Smith Last Filed: 07/07/25 10:27> Labs: Abnormal lab results 07/06/25 07/07/25 Range/Units 21:35 07:44 Hgb 13.6 L (14.0-18.0) g/dl Hct 41.4 L (42.0-52.0) % Plt Count 422 H D (160-400) X10*3/uL MPV 8.7 L (9.4-12.4) fL Abs Immat Gran (auto) 0.04 H (0.00-0.03) X10*3/uL ESR 37 H (0-15) MM/HR Anion Gap 10 L (12-20) AST 116 H (5-37) U/L ALT 85 H (0-40) U/L C-Reactive Protein 0.80 H (< or = 0.50) mg/dL Short CBC 07/06/25 Range/Units 21:35 WBC 9.5 (4.8-10.8) X10*3/uL Hgb 13.6 L (14.0-18.0) g/dl Hct 41.4 L (42.0-52.0) % Plt Count 422 H D (160-400) X10*3/uL BMP 07/07/25 07:44 Sodium 143 Potassium 4.4 Chloride 108 Carbon Dioxide 29 BUN 10 Creatinine 0.76 Calcium 9.3 Liver Function 07/07/25 Range/Units 07:44 Total Bilirubin 0.5 (0.0-1.0) mg/dL AST 116 H (5-37) U/L ALT 85 H (0-40) U/L Alkaline Phosphatase 71 (39-117) U/L Albumin 3.6 (3.5-5.0) g/dL All other labs normal. <Sharlene Barry PA-C - Last Filed: 07/07/25 10:27> Assessment and Plan (1) Cellulitis: Qualifiers: Laterality: unspecified laterality Site of cellulitis: e xtremity Site of cellulitis of extremity: upper extremity Qualified Code(s): L 03.119 - Cellulitis of unspecified part of limb <Sharlene Barry PA-C - Last Filed: 07/07/25 10:27> Status: Acute <Sharlene Barry PA-C - Last Filed: 07/07/25 10:27> (2) Active intravenous drug use: Status: Acute <Sharlene Barry PA-C - Last Filed: 07/07/25 10:27> 44 year old assigned male with PMH of asthma, cocaine abuse, latent TB, and IVDU presenting with b/l forearm swelling and redness. He has been admitted to the hospitalist service and started on IV vanco. He does have significant induration of the left AC fossa without any appreciable fluctuance to suggest an abscess. The open wound was probed circumferentially without any drainage appreciated. Currently no surgical intervention necessary to either arm. Recommend warm compresses several times a day to both AC areas to help promote any drainage and help reduce the induration present, allow any collection to present itself. Cont IV abx, will continue to follow. Left arm wound care was performed with wet to dry packing to wound followed by dry fluff and jazmyne wrap. Right foot xray has been ordered to r/o foreign body. <Sharlene Barry PA-C - Last Filed: 07/07/25 10:27> 44 year old assigned male with PMH of asthma, cocaine abuse, latent TB, and IVDU presenting with b/l forearm swelling and redness. He has been admitted to the hospitalist service and started on IV vanco. He does have significant induration of the left AC fossa without any appreciable fluctuance to suggest an abscess. The open wound was probed circumferentially without any drainage appreciated. Currently no surgical intervention necessary to either arm. Recommend warm compresses several times a day to both AC areas to help promote any drainage and help reduce the induration present, allow any collection to present itself. Cont IV abx, will continue to follow. Left arm wound care was performed with wet to dry packing to wound followed by dry fluff and jazmyne wrap. Right foot xray has been ordered to r/o foreign body. pt seen and examined \the arm wound on the left arm open ulcerated area clean base and surrounding erythema no true abscess. right arm wound smaller - ok to use alginate type dressing and wrap and observe. iv antibiotics. no need for any iand d - no foreign body on foot films <Carole Jordan MD - Last Filed: 07/09/25 20:50> Procedures Date of Service Date of Service: 07/07/25 <Sharlene Barry PA-C - Last Filed: 07/07/25 10:27> 07/09/25 <Carole Jordan MD - Last Filed: 07/09/25 20:50>
--- NOTE | 2025-07-07 10:17 | PHA.PROG ---
Admission Date/Time: July 07, 2025 09:21 Indication: skin and skin structure Weight in k.6 kg Adjusted body weight in Kg: [place] body weight in Kg: Obesity Dosing Indication % IBW: BMI 30.0 Serum Creatinine - Last 168 Hours 07/07/25 07:44 Creatinine 0.76 Estimated CrCl and GFR - Last 168 Hours 07/07/25 07:44 Estim Creat Clear Calc 137.6 Estimated GFR > 60 Vancomycin Loading Dose: 2000mg X1 Current Vancomycin Dosing Regimen: 1500mg Q12H Vancomycin Monitoring using AUC goal of 400 - 600 range with trough as surrogate marker: 554 Date and Time for next Vancomycin Level to be drawn: 07/08 @1900 Pharmacist Comments on Vancomycin Plan: Pt's renal fx stable, BMI elevated. Starting off a bit aggressive to get pt into range and then to be adjusted as needed. Predicted trough 16.4. Vancomycin dosing will take advantage of [employer] as a clinical decision support tool that uses Bayesian modeling to calculate individual patient's pharmacokinetic parameters and forecast the patient's drug concentration time course with the target goal AUC 24 range of 400 - 600 mg/L/hr.
[2025-07-07 13:16] LABS: MRSA Nasal PCR POSITIVE (Negative); SA Nasal PCR POSITIVE (Negative)
[2025-07-07 16:00] VITALS: BP 127/77; PULSE 84; RESP 16; TEMP 36.6; O2SAT 99
[2025-07-07 20:43] VITALS: BP 142/85; PULSE 88; RESP 16; TEMP 36.7; O2SAT 97
--- NOTE | 2025-07-07 21:41 | HO.NURTONUR ---
44 year old male presented to ED yesterday for concerns of abscesses to bilateral upper extremities, generalized pain and intermittent fevers. Pt uses both IV Heroin and IV Cocaine regularly. Pt awake and alert, appropriate with staff. Breathing equal and unlabored. VSS. Afebrile. PIV to right wrist. Regular diet. Ambulates independently in room/pedro. Recieved PO Methadone dose this AM.
[2025-07-07] MEDS: 0.9 % Sodium Chloride Flush 3 ML SYRINGE IVFLUSH (23:43)
[2025-07-07 23:49] VITALS: BMI 31.3
[2025-07-08] MEDS: oxyCODONE HCl Immed Release 5 MG TABLET PO ×2 (00:32→07:45)
--- NOTE | 2025-07-08 01:15 | PC.NURSE ---
pt refusing bed alarm and refusing to use call muñiz. pt educated on safety measures.
[2025-07-08 03:37] VITALS: BP 135/67; PULSE 88; RESP 18; TEMP 36; O2SAT 98
[2025-07-08 06:50] LABS: Creatinine Clr Calc Pharmacy 150.2; Estimated Glomerular Filt Rate > 60
[2025-07-08] MEDS: 0.9 % Sodium Chloride Flush 3 ML SYRINGE IVFLUSH ×3 (07:48→20:26)
[2025-07-08 08:00] VITALS: BP 125/86; PULSE 84; RESP 16; TEMP 36.3; O2SAT 99
--- NOTE | 2025-07-08 08:27 | PM.PNGS ---
Subjective Subjective Date of Service: 07/08/25 Interval history: Asking for methadone and his pain meds No fever reported No events overnight Physical Exam Vital Signs: Vital Signs: Last Vital Signs Temp 97.4 F 07/08/25 08:00 Pulse 84 07/08/25 08:00 Resp 16 07/08/25 08:00 BP 125/86 07/08/25 08:00 Pulse Ox 99 07/08/25 08:00 O2 Del Method Room Air 07/08/25 08:00 BMI result Body Mass Index 31.3 Const: Other: Answers questions General: no acute distress Resp: Effort & Inspection: normal respiratory effort Cardio: Rate: regular rate GI: Palpation (GI): Soft to palpation Extrem: Other: Open wound on the left arm, with some mild fibrinous exudates, residual induration, no fluctuance Small open wound on the right upper arm noted, no fluctuance or drainage Objective Data Active Medications Acetaminophen (Acetaminophen 325 Mg Tablet) 650 mg PO Q6H PRN PRN Reason: Pain, Mild 1-3,fever,headache Al Hydroxide/Mg Hydroxide (Magnesium Hydrox/Alum Hydrox 30 Ml Oral.Susp) 30 ml PO Q4H PRN PRN Reason: Heartburn Amlodipine Besylate (Amlodipine Besylate 2.5 Mg Tablet) 7.5 mg PO DAILY [facility]; Protocol Calcium Carbonate (Calcium Carbonate 750 Mg Tab.Chew) 750 mg PO Q4H PRN PRN Reason: Heartburn Docusate Sodium (Docusate Sodium 100 Mg Capsule) 100 mg PO BID [facility] Last Admin: 07/08/25 07:45 Dose: 100 mg Documented By: ALEXA Vancomycin HCl 1,500 mg/ (Sodium Chloride) 500 mls @ 333.333 mls/hr IV Q12H [facility] Last Admin: 07/08/25 07:45 Dose: 333.33 mls/hr Documented By: ALEXA Ibuprofen (Ibuprofen 400 Mg Tablet) 400 mg PO Q6H PRN PRN Reason: Pain, Moderate(Pain Scale 4-6) Magnesium Hydroxide (Milk Of Magnesia 30 Ml Oral.Susp) 30 ml PO DAILY PRN PRN Reason: Constipation Melatonin (Melatonin 3 Mg Tablet) 6 mg PO BEDTIME PRN PRN Reason: Insomnia Methadone HCl (Methadone Hcl 20 Mg/2 Ml Oral.Conc) 85 mg PO DAILY@0800 [facility] Nicotine Polacrilex (Nicotine Polacrilex Lozenge 2 Mg Lozenge) 2 mg BUCCAL Q2H PRN PRN Reason: Nicotine Cravings Ondansetron HCl (Ondansetron Hcl 4 Mg/2 Ml Vial) 4 mg IVPUSH Q8H PRN PRN Reason: Nausea and Vomiting Oxycodone HCl (Oxycodone Hcl Immed Release 5 Mg Tablet) 5 mg PO Q6H PRN PRN Reason: Pain, Severe (Pain Scale 7-10) Last Admin: 07/08/25 07:45 Dose: 5 mg Documented By: ALEXA Pharmacy Consult (Consult Rx Vancomycin Dosing) 1 each MISCELLANE DAILY PRN PRN Reason: Consult order Polyethylene Glycol (Polyethylene Glycol 3350 17 Gm Powd.Pack) 17 gm PO DAILY PRN PRN Reason: Constipation Sodium Chloride (0.9 % Sodium Chloride Flush 3 Ml Syringe) [facility] Last Admin: 07/08/25 07:48 Dose: 3 ml Documented By: ALEXA Labs 07/06/25 21:35 07/08/25 05:50 Labs: Laboratory Results - last 24 hr 07/06/25 07/07/25 07/07/25 21:35 07:44 11:33 ESR 37 H Hold Purple Top Estim Creat Clear Calc Estimated GFR C-Reactive Protein 0.80 H Nasal Screen MRSA (PCR) POSITIVE A Nasal S. aureus Screen POSITIVE A Nasal MRSA/S.aureus Interp SEE NOTE 07/08/25 05:50 ESR Hold Purple Top SEE NOTE Estim Creat Clear Calc 150.2 Estimated GFR > 60 C-Reactive Protein Nasal Screen MRSA (PCR) Nasal S. aureus Screen Nasal MRSA/S.aureus Interp Microbiology Microbiology Results: Microbiology 07/06/25 21:37 Blood Culture - Preliminary Blood - Venous No growth after 24 hours. Procedures Date of Service Date of Service: 07/08/25 Progress Note: A&P Assessment and plan (1) Cellulitis: Status: Acute Assessment and Plan: Open wound on the left upper arm with some fibrinous exudates and induration Would continue to dry dressings IV antibiotics Warm compresses Pain management - the patient is on methadone Wound care Time Spent With Patient Time: Total time managing care of this patient today ____ minutes. Quality Stroke Does the patient have a stroke diagnosis?: No VTE Prior VTE?: No VTE Risk Level:: Medical - low VTE Device Contraindication: Treatment Not Indicated VTE Drug Contraindication: Treatment Not Indicated
[2025-07-08] MEDS: methADONE HCl 20 MG/2 ML ORAL.CONC 85 MG PO (09:19)
--- NOTE | 2025-07-08 09:31 | MHC.CM.PN ---
LUIS delivered. Patient reports he has been living in his car x 2 weeks, as he is from his . Independent w/ all care. +IVDU. Methadone through [facility]. Says his PCP is in [place], but he cannot recall name of doctor/practice, or location/affiliation of practice. No HCP. CM provided education and offered assistance. Patient declined. +THRIVE - resource guide and jail list provided. Patient requesting to meet with recovery team. DP: Recovery team intervention vs return to car w/ wound care via [employer] [facility]. Not interested in jail at this time. CM will continue to follow.
--- NOTE | 2025-07-08 12:59 | HO.PM.IMPN ---
Subjective Subjective Date of Service: 07/08/25 Interval History: Patient seen and examined at bedside this morning, patient with left upper extremity abscess in place, draining. Patient mentions that he has been having pain, continues on IV antibiotics. Review of Systems Review of Systems: Yes all other systems are reviewed and are negative Physical Exam Exam: Exam: General: AxOx3, anxious Head: AT/NC ENT: Moist mucous membranes Neck: supple CVS; RRR, S1 S2 normal Lungs: Clear bilateral breath sounds, no wheezes or crackles Abd: Soft non tender, non distended Ext: No edema and no calf tenderness MSK: moving all 4 limbs Skin: Left upper extremity abscess with drainage in place Psych: Cooperative with exam Neurology: no focal deficit Vital Signs: Vital Signs: Last Vital Signs Temp 97.4 F 07/08/25 08:00 Pulse 84 07/08/25 08:00 Resp 16 07/08/25 08:00 BP 125/86 07/08/25 08:00 Pulse Ox 99 07/08/25 08:00 O2 Del Method Room Air 07/08/25 08:00 BMI result Body Mass Index 31.3 Objective Data Active Medications Acetaminophen (Acetaminophen 325 Mg Tablet) 650 mg PO Q6H PRN PRN Reason: Pain, Mild 1-3,fever,headache Al Hydroxide/Mg Hydroxide (Magnesium Hydrox/Alum Hydrox 30 Ml Oral.Susp) 30 ml PO Q4H PRN PRN Reason: Heartburn Amlodipine Besylate (Amlodipine Besylate 2.5 Mg Tablet) 7.5 mg PO DAILY [facility]; Protocol Last Admin: 07/08/25 09:18 Dose: 7.5 mg Documented By: ALEXA Calcium Carbonate (Calcium Carbonate 750 Mg Tab.Chew) 750 mg PO Q4H PRN PRN Reason: Heartburn Docusate Sodium (Docusate Sodium 100 Mg Capsule) 100 mg PO BID [facility] Last Admin: 07/08/25 07:45 Dose: 100 mg Documented By: ALEXA Vancomycin HCl 1,500 mg/ (Sodium Chloride) 500 mls @ 333.333 mls/hr IV Q12H [facility] Last Infusion: 07/08/25 09:48 Dose: Infused Documented By: ALEXA Ibuprofen (Ibuprofen 400 Mg Tablet) 400 mg PO Q6H PRN PRN Reason: Pain, Moderate(Pain Scale 4-6) Magnesium Hydroxide (Milk Of Magnesia 30 Ml Oral.Susp) 30 ml PO DAILY PRN PRN Reason: Constipation Melatonin (Melatonin 3 Mg Tablet) 6 mg PO BEDTIME PRN PRN Reason: Insomnia Methadone HCl (Methadone Hcl 20 Mg/2 Ml Oral.Conc) 85 mg PO DAILY@0800 [facility] Last Admin: 07/08/25 09:19 Dose: 85 mg Documented By: ALEXA Co-signed By: DABKen Morphine Sulfate (Morphine Sulfate 4 Mg/Ml Cartridge) 2 mg IVPUSH Q6H PRN; Protocol PRN Reason: Pain, Severe (Pain Scale 7-10) Nicotine Polacrilex (Nicotine Polacrilex Lozenge 2 Mg Lozenge) 2 mg BUCCAL Q2H PRN PRN Reason: Nicotine Cravings Ondansetron HCl (Ondansetron Hcl 4 Mg/2 Ml Vial) 4 mg IVPUSH Q8H PRN PRN Reason: Nausea and Vomiting Oxycodone HCl (Oxycodone Hcl Immed Release 5 Mg Tablet) 5 mg PO Q6H PRN PRN Reason: Pain, Moderate(Pain Scale 4-6) Last Admin: 07/08/25 07:45 Dose: 5 mg Documented By: ALEXA Pharmacy Consult (Consult Rx Vancomycin Dosing) 1 each MISCELLANE DAILY PRN PRN Reason: Consult order Polyethylene Glycol (Polyethylene Glycol 3350 17 Gm Powd.Pack) 17 gm PO DAILY PRN PRN Reason: Constipation Sodium Chloride (0.9 % Sodium Chloride Flush 3 Ml Syringe) 3 ml IVFLUSH [facility] Last Admin: 07/08/25 07:48 Dose: 3 ml Documented By: ALEXA Labs 07/06/25 21:35 07/08/25 05:50 Labs: Laboratory Results - last 24 hr 07/07/25 07/08/25 11:33 05:50 Hold Purple Top SEE NOTE Estim Creat Clear Calc 150.2 Estimated GFR > 60 Nasal Screen MRSA (PCR) POSITIVE A Nasal S. aureus Screen POSITIVE A Nasal MRSA/S.aureus Interp SEE NOTE Microbiology Microbiology Results: Microbiology 07/07/25 10:48 Blood Culture - Preliminary Blood - Venous No growth after 24 hours. 07/06/25 21:37 Blood Culture - Preliminary Blood - Venous No growth after 24 hours. Assessment and Plan (1) Abscess: Status: Acute (2) Opioid abuse: Status: Acute Plan Assessment: 44-year-old gentleman with history of active IV drug use presented with generalized pain, fever on and off, on examination noted to have left upper extremity cellulitis/abscess with tachycardia, tachypnea, will be admitted to [facility] for continued antibiotic treatment and surgical consultation for possible I and D. Seen by surgery with open wound on left upper arm with some fibrinous exudates and induration, suggested on continuing IV antibiotics and warm compresses. Left upper extremity cellulitis/abscess. Continue IV vancomycin follow blood cultures Per surgery, continue IV antibiotics and dressings Wound culture ordered Opiate abuse disorder Monitor for withdrawal, Continue methadone Addiction team consulted History of tobacco use disorder patient denies active tobacco use will add as needed nicotine gum. History of asthma no acute exacerbation, as needed albuterol inhaler DVT prophylaxis early ambulation Total time managing care of this patient today: 35 minutes. Quality Stroke Does the patient have a stroke diagnosis?: No VTE Prior VTE?: No VTE Risk Level:: Medical - low VTE Device Contraindication: Treatment Not Indicated VTE Drug Contraindication: Treatment Not Indicated
--- NOTE | 2025-07-08 14:08 | MHC.RECOVRN ---
Consult received by Addiction Medicine for substance use. Tw attempted to meet pt in - with the intention to discuss recovery support and resources. On approach pt was sitting near the window on his phone and stood when TW entered the room. Pt did not appear to be in any acute distress and did not report any issues or complaints. Pt stated he he did not wish to speak at this time because I'm feeling tired . When asked if he was experiencing any symptoms of withdrawal he reiterated, no, just tired . Pt is currently on 85mg of methadone at [facility] Pt agreed to TW returning later today or tomorrow to complete recovery assessment. ACS team available as needed for ongoing support.
--- NOTE | 2025-07-08 15:21 | HO.WOUND ---
Wound Consult: Initial 44 yr old [place] [facility] See progress notes and H&P for detailed history. Wound consult placed for bilateral arms. Patient agreeable to assessment and photo documentation. patient with current IV drug use. wounds at injection sites. general surgery saw patient without surgical intervention recommended. Left Arm Right arm Etiology: wounds from injection sites Wound Bed: mixed moist yellow and pale pink- left arm with depth/undermining Drainage / Odor: serous- no odor Edges: ? open Wendie wound: ? No Induration, Fluctuance or Warmth noted Pain: none Goals of Treatment: ? moist healing with durafiber ag Left knee- dry adherent scab Right heel- patient complaining of pain- dry cracked skin - recommend routine moisturizer - x ray done Recommendations: Bilateral arms: cleanse with saline, apply durafiber ag (gently packed into left arm wound), cover with foam, change daily and PRN Re-consult wound care Nurse for wound deterioration or wound changes.
[2025-07-08 15:52] VITALS: BP 133/96; PULSE 88; RESP 19; TEMP 36.3; O2SAT 96
[2025-07-08 19:40] VITALS: BP 144/79; PULSE 74; RESP 19; TEMP 36.6; O2SAT 96
--- NOTE | 2025-07-08 20:14 | HE.PHANOTE ---
VANCOMYCIN ADDENDUM: Level came back low at 6.4, increased frequency to 1250 mg q 8 hours and will recheck level in 24 hours
[2025-07-09 03:50] VITALS: BP 135/61; PULSE 78; RESP 18; TEMP 36.6; O2SAT 96
[2025-07-09 06:44] LABS: Creatinine Clr Calc Pharmacy 174.8; Estimated Glomerular Filt Rate > 60
[2025-07-09 07:08] VITALS: BP 131/84; PULSE 79; RESP 16; TEMP 36.1; O2SAT 97
--- NOTE | 2025-07-09 07:46 | P.PNGS_ITS ---
Subjective Subjective Date of Service: 07/09/25 Interval history: Overall feels better, less pain. Physical Exam 2 Vital Signs: Vital Signs: Last Vital Signs Temp 97.0 F 07/09/25 07:08 Pulse 79 07/09/25 07:08 Resp 16 07/09/25 07:08 BP 131/84 07/09/25 07:08 Pulse Ox 97 07/09/25 07:08 O2 Del Method Room Air 07/09/25 07:08 BMI result Body Mass Index 31.3 Const: General: comfortable, no acute distress and alert O rientation/consciousness: patient oriented x3 Resp: Effort & Inspection: normal respiratory effort Neuro: General: patient oriented x3 and moves all extremities Extrem: Other: left AC- induration sigificantly improved and tissue much more soft, no fluctuance appreciated, open wound clean appearing, no significant drainage right AC- induration improving, no drainage noted, no fluctuance Objective Data Active Medications Acetaminophen (Acetaminophen 325 Mg Tablet) 650 mg PO Q6H PRN PRN Reason: Pain, Mild 1-3,fever,headache Al Hydroxide/Mg Hydroxide (Magnesium Hydrox/Alum Hydrox 30 Ml Oral.Susp) 30 ml PO Q4H PRN PRN Reason: Heartburn Amlodipine Besylate (Amlodipine Besylate 2.5 Mg Tablet) 7.5 mg PO DAILY [facility]; Protocol Last Admin: 07/08/25 09:18 Dose: 7.5 mg Documented By: ALEXA Calcium Carbonate (Calcium Carbonate 750 Mg Tab.Chew) 750 mg PO Q4H PRN PRN Reason: Heartburn Docusate Sodium (Docusate Sodium 100 Mg Capsule) 100 mg PO BID [facility] Last Admin: 07/08/25 20:26 Dose: 100 mg Documented By: RASHAAD Vancomycin HCl 1,250 mg/ (Sodium Chloride) 250 mls @ 166.667 mls/hr IV Q8H [facility] Last Infusion: 07/09/25 07:17 Dose: Infused Documented By: ALEXA Ibuprofen (Ibuprofen 400 Mg Tablet) 400 mg PO Q6H PRN PRN Reason: Pain, Moderate(Pain Scale 4-6) Magnesium Hydroxide (Milk Of Magnesia 30 Ml Oral.Susp) 30 ml PO DAILY PRN PRN Reason: Constipation Melatonin (Melatonin 3 Mg Tablet) 6 mg PO BEDTIME PRN PRN Reason: Insomnia Last Admin: 07/08/25 20:44 Dose: 6 mg Documented By: RASHAAD Methadone HCl (Methadone Hcl 20 Mg/2 Ml Oral.Conc) 85 mg PO DAILY@0800 [facility] Last Admin: 07/08/25 09:19 Dose: 85 mg Documented By: ALEXA Co-signed By: IRIS Morphine Sulfate (Morphine Sulfate 4 Mg/Ml Cartridge) 2 mg IVPUSH Q6H PRN; Protocol PRN Reason: Pain, Severe (Pain Scale 7-10) Last Admin: 07/08/25 20:43 Dose: 2 mg Documented By: RASHAAD Nicotine Polacrilex (Nicotine Polacrilex Lozenge 2 Mg Lozenge) 2 mg BUCCAL Q2H PRN PRN Reason: Nicotine Cravings Ondansetron HCl (Ondansetron Hcl 4 Mg/2 Ml Vial) 4 mg IVPUSH Q8H PRN PRN Reason: Nausea and Vomiting Oxycodone HCl (Oxycodone Hcl Immed Release 5 Mg Tablet) 5 mg PO Q6H PRN PRN Reason: Pain, Moderate(Pain Scale 4-6) Last Admin: 07/08/25 07:45 Dose: 5 mg Documented By: ALEXA Pharmacy Consult (Consult Rx Vancomycin Dosing) 1 each MISCELLANE DAILY PRN PRN Reason: Consult order Polyethylene Glycol (Polyethylene Glycol 3350 17 Gm Powd.Pack) 17 gm PO DAILY PRN PRN Reason: Constipation Sodium Chloride (0.9 % Sodium Chloride Flush 3 Ml Syringe) 3 ml IVFLUSH QSHIFT [facility] Last Admin: 07/08/25 20:26 Dose: 3 ml Documented By: RASHAAD Labs 07/06/25 21:35 07/09/25 05:34 Labs: Laboratory Results - last 24 hr 07/08/25 07/09/25 19:08 05:34 Estim Creat Clear Calc 174.8 Estimated GFR > 60 Random Vancomycin 6.4 L Microbiology Microbiology Results: Microbiology 07/06/25 21:37 Blood Culture - Preliminary Blood - Venous No growth after 48 hours. 07/08/25 11:53 Gram Stain - Final Arm Left 07/07/25 10:48 Blood Culture - Preliminary Blood - Venous No growth after 24 hours. Procedures Date of Service Date of Service: 07/09/25 Progress Note: A&P Assessment and plan (1) Cellulitis: Status: Acute Plan Overall cellulitic changes improving, no surgical intervention needed. Cont warm compresses to sites to continue to help reduce induration. Cont abx. Agree with wound care recs with durafiber to open wound of left AC followed by jazmyne henson wrap upon discharge. Dispo as per medical team. Time Spent With Patient Time: Total time managing care of this patient today ____ minutes. Quality Stroke Does the patient have a stroke diagnosis?: No VTE Prior VTE?: No VTE Risk Level:: Medical - low VTE Device Contraindication: Treatment Not Indicated VTE Drug Contraindication: Treatment Not Indicated
[2025-07-09] MEDS: methADONE HCl 20 MG/2 ML ORAL.CONC 85 MG PO (08:04)
[2025-07-09] MEDS: 0.9 % Sodium Chloride Flush 3 ML SYRINGE IVFLUSH (08:06)
--- NOTE | 2025-07-09 09:54 | MHC.RECOVRN ---
Tw attempted to revisit pt after consult received by Addiction Medicine for ISSA. On approach pt was laying in bed, with eyes closed, in no apparent distress. He denies any issues or complaints at this time. Pt declined to met Unless you can get me housing, but not a program . TW offered to provide a list of homeless shelters for pt to contact. Pt was also provided education about the current drug supply, cutting agents used, and harm reduction strategies. Pt provided with ACS contact information should questions or concerns arise.
[2025-07-09 10:08] LABS: Hematocrit 45.9 % (42.0-52.0); Hemoglobin 14.7 g/dl (14.0-18.0); Mean Corpuscular HGB Conc 32.0 g/dl (31.0-36.0); Mean Corpuscular Hemoglobin 28.0 pg (27.0-33.0); Mean Corpuscular Volume 87.4 fL (80.0-98.0); NRBC Abs Auto 0.000 X10*3/uL (0.0-0.012); NRBC Pct Auto 0.0 /100WBC (0.0-0.2); Platelet Count 485 X10*3/uL (160-400); Red Blood Count 5.25 X10*6/uL (4.60-5.80); White Blood Count 6.2 X10*3/uL (4.8-10.8)
[2025-07-09 10:20] LABS: Anion Gap 11 (12-20); Blood Urea Nitrogen 5 mg/dL (9-16); Calcium 8.9 mg/dL (8.4-10.2); Carbon Dioxide 27 mmol/L (22-29); Chloride 107 mmol/L (96-108); Creatinine Clr Calc Pharmacy 177.7; Estimated Glomerular Filt Rate > 60; Potassium 3.8 mmol/L (3.3-5.1); Sodium 141 mmol/L (135-145)
--- NOTE | 2025-07-09 10:45 | P.DS_ITS ---
DS: Providers Provider Date of Service: 07/09/25 Date of admission: 07/07/25 09:21 Date of discharge: 07/09/25 Primary care physician: Unknown Physician Consults: 07/07/25 09:27 Consult to General Surgery Routine Consulting Provider[facility] Reason for consultation: left arm abscess Has provider been notified: No 07/07/25 14:20 Consult to Wound Care Routine Consulting Provider: [facility] Reason for consultation: Wounds to BUE 07/07/25 15:27 Addiction Medicine Provider Routine Consulting Provider: Addiction Covering Reason for consultation: substance use Has provider been notified: No DS: Diagnosis Discharge Diagnosis (1) Cellulitis: Status: Acute DS: Summary Hospital Course Hospital Course: 44-year-old gentleman with history of active IV drug use presented with generalized pain, fever on and off, on examination noted to have left upper extremity cellulitis/abscess with tachycardia, tachypnea, will be admitted to [facility] for continued antibiotic treatment and surgical consultation for possible I and D. Seen by General surgery, suggested on continuing antibiotics and warm compresses. Wound culture with Gram stain obtained with positive g positive cocci. Patient suggested on following up with PCP, we will transition to doxycycline and Augmentin to complete 7 days. Information provided to continue with wound care, patient resting today to understanding. Left upper extremity cellulitis/abscess. Continue IV vancomycin, transitioning to PO abs for 7 days with augmentin and doxy Follow up with final wound cultures continue daily dressing changes Follow up with PCP Opiate abuse disorder Monitor for withdrawal, Continue methadone History of tobacco use disorder patient denies active tobacco use History of asthma no acute exacerbation, as needed albuterol inhaler Time Attestation Discharge Coordination Time (in mins): 35 minutes Quality: Safe Use of Opioids Does Pt have an Active Cancer Diagnosis on the Problem List?: No Quality: Stroke Does the patient have a stroke diagnosis?: No Physical Exam Exam: Exam: General: AxOx3, No acute distress Head: AT/NC ENT: Moist mucous membranes Neck: supple CVS; RRR, S1 S2 normal Lungs: Clear bilateral breath sounds, no wheezes or crackles Abd: Soft non tender, non distended Ext: LUE with dressing in place, wound with minimal secretion MSK: moving all 4 limbs Skin: No cyanosis or edema Psych: Cooperative with exam Neurology: no focal deficit Vital Signs: Vital Signs: Last Vital Signs Temp 97.0 F 07/09/25 07:08 Pulse 79 07/09/25 07:08 Resp 16 07/09/25 07:08 BP 131/84 07/09/25 07:08 Pulse Ox 97 07/09/25 07:08 O2 Del Method Room Air 07/09/25 07:08 BMI result Body Mass Index 31.3 DS: Data Data Completed and Pending Labs on day of discharge: Laboratory Results - last 24 hr 07/08/25 07/09/25 07/09/25 19:08 05:34 09:12 WBC 6.2 RBC 5.25 Hgb 14.7 Hct 45.9 MCV 87.4 MCH 28.0 MCHC 32.0 RDW 12.8 Plt Count 485 H MPV 8.8 L Absolute Nucleated RBC 0.000 Nucleated RBC % (auto) 0.0 Sodium 141 Potassium 3.8 Chloride 107 Carbon Dioxide 27 Anion Gap 11 L BUN 5 L Creatinine 0.61 0.60 Estim Creat Clear Calc 174.8 177.7 Estimated GFR > 60 > 60 Random Glucose 105 Calcium 8.9 Random Vancomycin 6.4 L Preliminary micro results at discharge 07/06/25 21:37 Blood Culture - Preliminary Blood - Venous No growth after 48 hours. 07/07/25 10:48 Blood Culture - Preliminary Blood - Venous No growth after 24 hours. Discharge Plan Discharge Patient Disposition: Home, Self-Care Referrals: Physician,Unknown J [Primary Care Provider, Medical] - 1 Week Discharge Medications: New amoxicillin-pot clavulanate 875-125 mg tablet 1 tab PO BID 7 Days Qty: 14 0RF doxycycline hyclate 100 mg tablet 100 mg PO BID 7 Days Qty: 14 0RF omeprazole 40 mg capsule,delayed release(DR/EC) 40 mg PO DAILY 7 Days Qty: 7 0RF Continued methadone [Methadone Intensol] 10 mg/mL Concentrate 85 mg PO DAILY@0800 amlodipine 5 mg tablet 7.5 mg PO DAILY Discharge Orders: Discharge Order (Routine); Ordered 07/09/25 Ordered By: Izaiah Estrada Activity on Discharge: As tolerated Stand Alone Forms: Patient Portal Discharge page Print Language: Arabic Activity Restrictions/Additional Instructions: Wound care- apply durafiber ag (gently packed into left arm wound), cover with dry dressing, change daily and PRN Care Plan Goals: Continue antibiotics for abscess continue wound care Health Concerns: abscess Plan of Treatment: continue amoxicillin-potassium twice a day for 7 days Continue doxycyline 100mg twice a day for 7 days take with meals omeprazole ordered follow up with PCP continue with wound care Assessment: 44-year-old gentleman with history of active IV drug use presented with generalized pain, fever on and off, on examination noted to have left upper extremity cellulitis/abscess with tachycardia, tachypnea, will be admitted to [facility] for continued antibiotic treatment and surgical consultation for possible I and D. Seen by General surgery, suggested on continuing antibiotics and warm compresses. Wound culture with Gram stain obtained with positive g positive cocci. Patient suggested on following up with PCP, we will transition to doxycycline and Augmentin to complete 7 days. Information provided to continue with wound care, patient resting today to understanding.
--- NOTE | 2025-07-09 10:53 | MHC.CM.PN ---
Patient medically cleared for dc home self care. He has been provided with wound care supplies and [employer] schedule. Though reports his mother in a law is a nurse and will assist w/ wound care. Car in lot for self transport.
== END 2025-07-09 11:06 | disposition home or self-care (01) ==
LOC: HO.ED 07-07 08:33 → HO.EDOVER 07-07 09:28 → HO.S3 07-07 22:30
PROVIDERS: Physician Assistant Medical; Admitting Provider Hospitalist; Emergency Provider Emergency Medicine; Visit Provider Student in an Organized Health Care Education/Training Program
DX: L03.114 Cellulitis of left upper limb (principal); L03.113 Cellulitis of right upper limb; L02.414 Cutaneous abscess of left upper limb; L02.413 Cutaneous abscess of right upper limb; F11.10 Opioid abuse, uncomplicated; F14.10 Cocaine abuse, uncomplicated; F19.90 Other psychoactive substance use, unspecified, uncomplicated; R00.0 Tachycardia, unspecified; J45.909 Unspecified asthma, uncomplicated; F17.200 Nicotine dependence, unspecified, uncomplicated; Z71.6 Tobacco abuse counseling
CPT/HCPCS: 36415; 73060; 73630; 80048; 80053; 80202; 82565; 85025; 85027; 85652; 86140; 87040; 87070; 87077; 87186; 87205; 87640; 87641; 96365; 96366; 96375; 96376; 99221; 99285; J2270; J2543; J3373; J3374

== ENCOUNTER → 2025-07-07 07:17 | Outpatient (BNV) | payer BC, SELFPAY | PROVIDERS: Emergency Provider Emergency Medicine; Visit Provider Radiology Diagnostic Radiology | DX: Z03.89 Encounter for observation for other suspected diseases and conditions ruled out (principal); Z04.3 Encounter for examination and observation following other accident | CPT/HCPCS: 73060; 73630 ==

== ENCOUNTER → 2025-07-07 09:21 | Outpatient (BNV) | payer BC, SELFPAY | PROVIDERS: Admitting Provider Hospitalist; Emergency Provider Emergency Medicine; Visit Provider Surgery | DX: L03.119 Cellulitis of unspecified part of limb (principal) | CPT/HCPCS: 99232 ==

== ENCOUNTER → 2025-07-07 09:21 | Outpatient (BNV) | payer BC, SELFPAY | PROVIDERS: Admitting Provider Hospitalist; Emergency Provider Emergency Medicine; Visit Provider Student in an Organized Health Care Education/Training Program | DX: L03.114 Cellulitis of left upper limb (principal); F14.10 Cocaine abuse, uncomplicated; F11.10 Opioid abuse, uncomplicated; L02.91 Cutaneous abscess, unspecified; F19.90 Other psychoactive substance use, unspecified, uncomplicated | CPT/HCPCS: 99222; 99232; 99239 ==

== ENCOUNTER 2025-08-04 20:24 | Emergency (ER) | payer BC, SELFPAY ==
--- OUTSIDE RECORDS SUMMARY | 2025-01-27 08:15 | XMS_ITS ---
Author Organization [facility] Address [address] [address] Care Team Providers Care Employee Relations Assistant Name Role Phone LAMBERT MARTINS Primary Care Provider Shree Rodriguez Unavailable [phone] REASON FOR VISIT Swelling glands under his ears Encounters Encounter Location Date Provider Diagnosis [facility] [address] [address] 01/27/2025 Shree Rodriguez Plan Of Treatment No Information Progress Notes * Clemente PICKETTDOB:[birth year] (44 yo M)Acc No.[id number]:01/27/2025 Patient: Clemente RACHEL Appointment Provider: Jero Rodriguez :1980 A ge:44 Y S ex:Male Date:01/27/2025 Phone: Address:[address] [place], [place] [id number] Pcp:LAMBERT MARTINS Subjective: * Chief Complaints: * 1 . Swelling glands under his ears. * Medical History: Objective: * Vitals: Assessment: Plan: * Treatment: * Procedure Codes: N OSHO NO SHOW FEE * Images: * Electronic signature of Michelle Rodriguez PA-C on 08/04/2025 at 09:11 PM EST Sign off status: Pending * Appointment Provider: Jero Rodriguez Date: 0 01/27/2025 Generated for Sally sher/Trav/Birgit on: 09:11 PM EST
--- OUTSIDE RECORDS SUMMARY | 2025-07-13 08:30 | XMS_ITS ---
Author Organization [facility] Address [address] [place] [id number] Care Team Providers Care Paragliding Instructor Name Role Phone LAKSHMI LAMBERT Primary Care Provider [phone] REASON FOR VISIT [facility] D/C 06/20/25; Notes Scanned Medications Medication SIG (Take, Route, Frequency, Duration) Notes Start Date End Date Status amLODIPine Besylate 5 MG 1.5 tablets Ora lly Once a day; Duration: 90 days 07/21/2024 Active Encounters Encounter Location Date Provider Diagnosis [facility] [address] [id number] 07/13/2025 LAMBERT MARTINS Plan Of Treatment No Information Progress Notes * Clemente PICKETTDOB:[birth year] (44 yo M)Acc No.[id number]:07/13/2025 Patient: Clemente RACHEL Provider: Giselle MARTINS MD :1980 A ge:44 Y S ex:Male Date:07/13/2025 Phone: Address:[address] [place], [place] [phone] Subjective: * Chief Complaints: * 1 . [facility] D/C 06/20/25; Notes Scanned. * Medical History: * Medications: T aking amLODIPine Besylate 5 MG Tablet 1.5 tablets Orally Once a day , Notes: medication has been increased to 7.5 mg 1 tablet daily Objective: * Vitals: Assessment: Plan: * Treatment: * Procedure Codes: N OSHO NO SHOW FEE * Images: * Electronic signature of MILDRED MARTINS MD on 08/04/2025 at 09:10 PM EST Sign off status: Pending * Provider: Giselle MARTINS MD Date: 1 09/13/2024 Generated for Sally sher/Trav/Jeffreyitting on: 1 09:10 PM EST
--- NOTE | ~2025-08-04 | XR_ITS ---
CLINICAL HISTORY: back pain, slipped on ice 3 views lumbar spine Comparison: None Findings: No compression fractures or spondylolisthesis. Probable small spur posterior inferior corner L2 vertebral body with a small hairline fracture. Normal facets Disc spaces are maintained. Pedicles and transverse processes intact. Lordotic curvature is preserved. Normal bone mineralization. Normal soft tissues. Sacroiliac joints unremarkable. Impression: 1. No compression fractures or spondylolisthesis. Probable small spur posterior inferior corner L2 vertebral body with a small hairline fracture. This document has been electronically signed by: Ed Pineda MD on 08/05/2025 05:02:13
[2025-08-04 20:43] VITALS: BP 139/91; PULSE 120; RESP 20; TEMP 36.8; O2SAT 94; BMI 31.0
--- NOTE | 2025-08-04 20:47 | ECG_ITS ---
Test Reason : WEAKNESS Blood Pressure : */* mmHG Vent. Rate : 108 BPM Atrial Rate : 108 BPM P-R Int : 134 ms QRS Dur : 68 ms QT Int : 326 ms P-R-T Axes : 54 59 28 degrees QTcB Int : 436 ms Sinus tachycardia Possible Left atrial enlargement Borderline ECG When compared with ECG of 22-Mar-2025 00:35, No significant change was found Referred By: Ja Whyte Electronically Signed By: VANESSA MENDIOLA
--- NOTE | 2025-08-04 20:47 | ED_ITS ---
HPI - General Adult General Chief complaint: Nausea/Vomiting/Diarrhea Stated complaint: back pain and numb/surgery 2years ago Time Seen by Provider: 08/05/25 02:33 Source: patient Mode of arrival: ambulatory Limitations: no limitations History of Present Illness ED Provider: Dr. Bessy Harmon HPI narrative: Patient comes to the emergency room complaining of back pain. Patient states that yesterday he slipped on ice and landed on his buttocks. Patient denies urinary retention/incontinence. Patient states that for last 5 days, he has been having diffuse body aches because he stopped using Suboxone cold turkey.. Patient requesting to see the in recovery team so that he can be started on methadone. Patient denies SI or HI. Patient denies IV drug use, states that he snorts fentanyl/cocaine. Interestingly, when he was in triage, he told the provider that he has history of chronic back pain and did not mentioned anything about a fall. Related Data Home Medications ?Medication ?Instructions ?Recorded ?Confirmed amlodipine 5 mg tablet 7.5 mg PO DAILY 07/07/2509/30 methadone 10 mg/mL oral 85 mg PO DAILY@0800 07/07/25 07/07/25 concentrate (Methadone Intensol) Previous Rx's ?Medication ?Instructions ?Recorded amoxicillin 875 mg-potassium 1 tab PO BID 7 days #14 t abs 07/09/25 clavulanate 125 mg tablet doxycycline hyclate 100 mg tablet 100 mg PO BID 7 days #14 tabs 07/09/25 omeprazole 40 mg capsule,delayed 40 mg PO DAILY 7 days #7 caps 07/09/25 release cyclobenzaprine 10 mg tablet 10 mg PO TID PRN muscle s pasm #14 08/05/25 tabs ibuprofen 600 mg tablet 600 mg PO TID PRN fever or p ain 08/05/25 #30 tabs Allergies Allergy/AdvReac Type Severity Reaction Status Date / Time No Known Allergies Allergy Verified 08/04/25 20:46 Review of Systems 2 Review of Systems: Constitutional : No Weight loss, No Fever, No Chills, No Night Sweats, No Fatigue, No Malaise ENT/Mouth : No Hearing loss, No Ear Pain, No Nasal Congestion, No Sinus Pain, No Hoarseness, No sore throat, No Rhinorrhea, No Swallowing Difficulty Eyes: No Eye Pain, No Swelling, No Redness, No Foreign Body, No Discharge, No Vision Changes Cardiovascular : No Chest Pain, No SOB, No Dyspnea on Exertion, No Orthopnea, No Edema, No Palpitations Respiratory : No Cough, No Sputum, No Wheezing, No Smoke Exposure, No Dyspnea Gastrointestinal : No Nausea, No Vomiting, No Diarrhea, No Constipation, No abdominal Pain, No Hematochezia, No Melena Genitourinary : no irregular bleeding, No Dysuria, No Urinary Frequency, No Hematuria, No Urinary Incontinence, No Urgency, No Flank Pain, No Urinary Flow Changes, No Hesitancy Musculoskeletal : No joint pain, No Myalgias, No Joint Swelling Skin : No Skin Lesions, No rash Neuro : No Weakness, No Numbness, No Paresthesias, No Loss of Consciousness, No Dizziness, No Headache Psych : No Anxiety/Panic, No Depression, No SI/HI/AH/VH, admits to polysubstance abuse, requesting information to go to a methadone clinic Heme/Lymph: No Bruising, No Bleeding,No Lymphadenopathy Endocrine : No Polyuria, No Polydipsia, No Temperature Intolerance [facility], [facility] Past Medical History Medical History Elevated troponin Heroin overdose Asthma with exacerbation Latent tuberculosis Asthma Substance abuse Social History Social History Household Members: Other Household Members Other:: homeless Housing: Other Housing Other:: homeless Do you presently have visiting nurse or other home services: No Alcohol intake: never Patient Tobacco Use Status: Current everyday Tobacco user Tobacco use type: Cigarette Cigarette Packs Per Day: 1.5 Cigarettes Per Day: 30.0 Smoked in Last 30 Days: No Second Hand Smoke Exposure: No Substance Use Type: Heroin Advance Directives: No Advance Directives Information Provided: No Do you have a plan to hurt others: No Plan service: No Current occupational status: unemployed Physical Exam ED Exam Exam: Appearance: Alert. Oriented X3. No acute distress. Eyes: Pupils equal, round and reactive to light. ENT: Pharynx normal. Neck: Normal inspection. Neck supple. No lymph nodes noted. No crepitus CVS: Normal heart rate and rhythm. Pulses normal. Normal S1 and S2 Respiratory: No respiratory distress. Breath sounds normal. No Wheezing. No rales Abdomen: Soft and nontender. No rigidity. No distention Back: No pain to palpation over the thoracic, lumbar spine, more pain over the coccyx area and paraspinal muscles on the right side. Skin: Skin warm and dry. Normal skin color. Normal skin turgor. Extremities: No lower extremity edema. No Lacerations. No Rash Neuro: Oriented X 3. No motor deficit. No sensory deficit. Moving all extremities. No slurred speech. CN 2 through 12 grossly intact Psych: calm, cooperative, normal affect Vital Signs: Vital Signs - 24 hr 08/04/25 20:43 08/05/25 03:45 08/05/25 06:23 Temperature 98.2 F 99.0 F 97.8 F Pulse Rate 120 H 115 H 83 Respiratory Rate 20 16 18 Blood Pressure 139/91 H 121/72 112/64 Pulse Oximetry 94 94 96 Oxygen Delivery Method Room Air Room Air Room Air 08/05/25 08:25 Temperature Pulse Rate 75 Respiratory Rate 16 Blood Pressure 110/80 Pulse Oximetry 97 Oxygen Delivery Method Room Air BMI result Body Mass Index 31.0 Course Course Course Narrative: RME, this is a rapid medical exam performed by Daniel Whyte please refer to primary provider for complete H&P- 44-year-old male presents for evaluation of multiple complaints including back pain. He has a history of chronic back pain. He also is seeking a recovery team consult. He reports that he discontinued Suboxone use 7 days ago. Reevaluation(s) Reevaluation #1: Time: 10:08 Date: 08/05/25 Provider: HUDSON Will Physician observation ended at 1008. Patient has been cleared for discharge by the CARE team. Declining detox, would like to follow up with methadone clinic outpatient to continue his methadone. He is treated with 30 mg here, last dose at our provided. Talha from care team has given him a list of methadone clinics to follow up with. Will follow up as an outpatient. take home narcan given. Medications Administered Discontinued Medications Generic Name Dose Route Start Last Admin Trade Name Freq PRN Reason Stop Dose Admin Cyclobenzaprine HCl 5 mg 08/05/25 03:15 08/05/25 03:39 Cyclobenzaprine Hcl 5 Mg Tablet PO 08/05/25 03:16 5 mg ONCE ONE Administration Ketorolac Tromethamine 60 mg 08/05/25 03:15 08/05/25 03:44 Ketorolac Tromethamine 60 Mg/2 Ml Vial IM 08/05/25 03:16 60 mg ONCE ONE Administration Methadone HCl 30 mg 08/05/25 03:15 08/05/25 03:40 Methadone Hcl 20 Mg/2 Ml Oral.Conc PO 08/05/25 03:16 30 mg ONCE ONE Administration Medical Decision Making Medical Decision Making [facility] Narrative: Patient was given a dose of IM ketorolac, cyclobenzaprine p.o., and 1 dose of methadone. Recovery consult pending My interpretation of labs: No significant abnormality in patient's hematology and chemistry, chronically elevated LFTs., urine toxicology positive for opiates, fentanyl, cocaine, negative for EtOH Patient is ambulatory, patient is adamant that he is not an IV drug user, epidural spinal abscess is not suspected X-ray negative for fractures. . Patient is on physician observation waiting to be seen by the recovery team. Patient states that he will try to wait as long as possible. However, patient states that he has a nephew for a job today and he can not afford missing it. Patient states that he may have to leave before he is seen. If that is the case, patient will be provided with information. Differential Diagnosis Differential Diagnoses: The differential diagnosis associated with the presentation includes (Polysubstance abuse) Admission/Observation Consideration of admission/observation: Escalation of care including admission/observation considered (Patient is under physician observation waiting to be seen by the recovery team) Lab Data [facility] Lab Attestation statement: I reviewed the patient's lab results. 08/04/25 21:12 08/04/25 21:12 Labs: Lab Results 08/04/25 08/05/25 Range/Units 21:12 03:54 WBC 8.1 (4.8-10.8) X10*3/uL RBC 5.47 (4.60-5.80) X10*6/uL Hgb 15.4 (14.0-18.0) g/dl Hct 46.8 (42.0-52.0) % MCV 85.6 (80.0-98.0) fL MCH 28.2 (27.0-33.0) pg MCHC 32.9 (31.0-36.0) g/dl RDW 12.7 (11.0-16.0) % Plt Count 332 D (160-400) X10*3/uL MPV 8.1 L (9.4-12.4) fL Immature Gran % (Auto) 0.4 (0.0-0.4) % Neut % (Auto) 64.4 (45-73) % Lymph % (Auto) 25.5 (20-40) % [place] % (Auto) 9.1 (2-11) % Eos % (Auto) 0.1 (0-4) % Baso % (Auto) 0.5 (0-2) % Lymph # (Auto) 2.1 (1.2-4.9) X10*3/uL [place] # (Auto) 0.7 (0.1-1.2) X10*3/uL Eos # (Auto) 0.0 (0.0-0.4) X10*3/uL Baso # (Auto) 0.0 (0.0-0.2) X10*3/uL Abs Immat Gran (auto) 0.03 (0.00-0.03) X10*3/uL Absolute Neuts (auto) 5.2 (2.0-8.3) x10*3/uL Absolute Nucleated RBC 0.000 (0.0-0.012) X10*3/uL Nucleated RBC % (auto) 0.0 (0.0-0.2) /100WBC Sodium 139 (135-145) mmol/L Potassium 5.1 D (3.3-5.1) mmol/L Chloride 101 (96-108) mmol/L Carbon Dioxide 32 H (22-29) mmol/L Anion Gap 11 L (12-20) BUN 9 (9-16) mg/dL Creatinine 0.85 (0.5-1.4) mg/dL Estim Creat Clear Calc 125.0 Estimated GFR > 60 Random Glucose 107 (60-115) mg/dL Calcium 10.0 D (8.4-10.2) mg/dL Total Bilirubin 0.8 (0.0-1.0) mg/dL AST 61 H (5-37) U/L ALT 53 H (0-40) U/L Alkaline Phosphatase 104 (39-117) U/L Total Protein 8.8 H (6.5-8.0) g/dL Albumin 4.4 (3.5-5.0) g/dL Lipase 17 (8-78) U/L Urine Color Dark Yellow Urine Appearance Clear Urine pH 6.0 (5.0-9.0) Ur Specific [place] >= 1.030 H (1.005-1.025) Urine Protein 30 (1+) H (Neg-Trace) mg/dL Urine Glucose (UA) Negative (Negative) mg/dL Urine Ketones Trace (Negative) mg/dL Urine Blood Negative (Negative) Urine Nitrite Negative (Negative) Ur Leukocyte Esterase Trace H (Negative) Urine RBC 0-2 (0-2) /HPF Urine WBC 0-5 (0-5) /HPF Ur Squamous Epith Cells 0-2 (0-2) /HPF Urine Bacteria None Seen (None Seen) Hyaline Casts 3-5 (0-2) /LPF Urine Opiates Screen POSITIVE H (Not Detect) Ur Buprenorphine Scrn Not Detected (Not Detect) ng/mL Ur Oxycodone Screen Not Detected (Not Detect) ng/mL Urine Methadone Screen Not Detected (Not Detect) ng/mL Urine Fentanyl Screen POSITIVE H (Not Detect) Ur Barbiturates Screen Not Detected (Not Detect) Ur Phencyclidine Scrn Not Detected (Not Detect) Ur Amphetamines Screen Not Detected (Not Detect) U Benzodiazepines Scrn Not Detected (Not Detect) Urine Cocaine Screen POSITIVE H (Not Detect) U Marijuana (THC) Screen Not Detected (Not Detect) Ethyl Alcohol < 10 mg/dL Independent Interpretation I performed an independent interpretation of an: Plain X-Ray Radiology Impression Discussion of test interpretation with radiology: I have reviewed the radiologist's reading. Radiologist Impression: No compression fractures or spondylolisthesis. Probable small spur posterior inferior corner L2 vertebral body with a small hairline fracture. Normal facets Disc spaces are maintained. Pedicles and transverse processes intact. Lordotic curvature is preserved. Normal bone mineralization. Normal soft tissues. Sacroiliac joints unremarkable. Impression: 1. No compression fractures or spondylolisthesis. Probable small spur posterior inferior corner L2 vertebral body with a small hairline fracture. Critical Care Time Critical Care Time Critical Care Time: Yes Total Critical Care Time: 35 Attestation: I have personally provided critical care time. Time includes review of lab data, radiology results, discussion with consultants, and monitoring for potential decompensation. Intervention performed as documented. Discharge Plan Discharge Clinical Impression: Polysubstance abuse, Back pain Patient Disposition: Home, Self-Care Instructions: Polysubstance Use Disorder (ED), Back Pain (ED) Additional Instructions: Opiate use disorder You were seen in our Emergency Department today for treatment of opiate use disorder. You may have been dosed with medication for opiate use disorder (MOUD) in the form of suboxone or methadone. You may experience feeling some withdrawal symptoms and this is normal. The? dose in the Emergency Department is a starting dose and meant to be titrated up once you follow up with a clinic. Please do not feel discouraged, it is a process. The nurse has reviewed with you where to follow up and what information to bring with you, to continue treatment. You also may have been given naloxone (narcan) to take home with you. This medication is used to potentially treat opiate overdose. You were treated with 30 mg methadone today and provided with a last dose letter. The CARE team has given you a list of methadone clinics to follow up with for further dosing. you need to reach out to them. If you decide you want to stop or cut down on how much you?re using, you can call or walk into our outpatient Addiction Treatment office: [facility] (M-F 9am-5p) [address], [address] [phone] You may have been provided with safer injection?items, please take time to take care of YOU and your health. Use new supplies whenever possible to lessen the chances of infections and other illnesses.? ?If you need more supplies, please go [facility],? [address] [place] [address] OR you can call or text to coordinate delivery of safer supplies. You were also provided a list of several treatment providers in the area.? If you experience any worsening symptoms you cannot control please return to the ED or call 911. Please follow up at your next appointment. Things to look out for are fevers, chest pain, shortness of breath, severe pain, dizziness, fainting or any other concerns. Prescriptions: New cyclobenzaprine 10 mg tablet 10 mg PO TID PRN (Reason: muscle spasm) Qty: 14 0RF Rx Instructions: Do not go to work or drive after taking this medication, it may make you feel drowsy ibuprofen 600 mg tablet 600 mg PO TID PRN (Reason: fever or pain) Qty: 30 0RF No Action methadone [Methadone Intensol] 10 mg/mL Concentrate 85 mg PO DAILY@0800 amlodipine 5 mg tablet 7.5 mg PO DAILY amoxicillin-pot clavulanate 875-125 mg tablet 1 tab PO BID 7 Days Qty: 14 0RF doxycycline hyclate 100 mg tablet 100 mg PO BID 7 Days Qty: 14 0RF omeprazole 40 mg capsule,delayed release(DR/EC) 40 mg PO DAILY 7 Days Qty: 7 0RF Referrals: [facility] [Provider Group] Physician,Unknown J [Primary Care Provider, Medical] Print Language: [place]
--- OUTSIDE RECORDS SUMMARY | 2025-08-04 21:11 | XMS_ITS | Clinical Summary ---
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
--- OUTSIDE RECORDS SUMMARY | 2025-08-04 21:11 | XMS_ITS | Patient Health Record ---
Author Organization [facility] Address [address] [place] [address] Care Team Providers Care Presiding Steward Name Role Phone LAMBERT MARTINS Primary Care Provider Catie Becerra Unavailable [phone] Shree Rodriguez Unavailable [phone] Allergies No Known Allergies Reason For Referral Reason please evaluate and treat Please evaluate and treat Diagnosis 1 Benign prostatic hyp erplasia with lower urinary tract symptoms (N40.1) Referral Organization [facility] Referring Provider First Name Shree Referring Provider Last Name Michael Referred Provider Specialty Urology General Notes Please call the jenn ent to schedule the appointment, Encounter created and SMS sent to the pt.Geremias Charmain 02/26/2025 04:06:43 PM > Referral Priority Routine Reason please evaluate and treat Please evaluate and treat Diagnosis 1 Unspecified hemorrho ids (K64.9) Referral Organization [facility] Referring Provider First Name Shree Referring Provider Last Name Michael Referred Provider Specialty Gastroentero logy General Notes Please call the jenn ent to schedule the appointment, Encounter created and SMS sent to the pt.Geremias Charmain 02/26/2025 04:00:18 PM > Referral Priority Routine Medications Medication SIG (Take, Route, Frequency, Duration) Notes Start Date End Date Status amLODIPine Besylate 5 MG 1.5 tablets Ora lly Once a day; Duration: 90 days 07/21/2024 Active Immunizations Vaccine Route Administration Date Status Comme nts COVID 19 Pfizer Unknown 12/18/2020 Administered Fluzone QD Unknown 06/27/2020 Administered TDAP Unknown 05/31/2022 Administered Problems Problem Type SNOMED Code ICD Code Onset Dates Problem Status W/U Status Risk Notes Problem Lower urinary tract symptoms due to benign prostatic hypertrophy (59956576902592) Benign prostatic hyperplasia with lower urinary tract symptoms (N40.1) Active confirmed Problem Essential hypertension (90178164) HTN (hypertension), benign (I10) Active confirmed Vital Signs Heart Rate 104 /min 02/24/2025 Temperature 97.5 degrees Fahrenheit 02/24/2025 Oximetry 97 % 02/24/2025 Blood pressure diastolic 78 mm Hg 02/24/2025 Height 5'8'' in 02/24/2025 Blood pressure systolic 130 mm Hg 02/24/2025 Weight 213.4 lbs 02/24/2025 BMI 32.44 kg/m2 02/24/2025 Encounters Encounter Location Date Provider Diagnosis [address] [place] [address] 07/13/[address] [place] [address] 02/24/2025 Shree Tavarez Encounter for screening for infections with a predominantly sexual mode of transmission Z11.3 ; Benign prostatic hyperplasia with lower urinary tract symptoms N40.1 ; Unspecified hemorrhoids K64.9 ; Hyperlipidemia, mixed E78.2 and HTN (hypertension), benign I10 [address] [place] [address] 04/13/[address] [place] [address] 01/27/2025 Shree Rodriguez [address] [place] [address] 02/10/2025 [facility] HTN (hypertension), benign [address] [place] [address] 02/26/[address] [place] [address] 02/26/[address] [place] [address] 04/13/2025 [facility] Assessments Encounter Date Diagnosis (ICD Code) Assessment Notes Treatment Notes Treatment Clinical Notes Section Notes 02/10/2025 HTN (hypertension), benign (ICD-10 - I10) 02/24/2025 Encounter for screening for infections with a predominantly sexual mode of transmission (ICD-10 - Z11.3) Carlos is a 44-year-old gentleman with history of opioid disorder has been on Suboxone currently prescribed but not taking regularly, hypertension is here for recent ER follow-up. We do not have records, once obtained through review and make further recommendation. History and physical were obtained from the patient as he states that he had a tooth infection and now was taking care of at the ER with antibiotic which she has finished a course of antibiotic and the swelling has improved significantly. He is concerned about colon issues , prostate and would like to be screened for STDs including hep C. Plan as follows Screening for STDs. We will check syphilis, HIV, viral hep B and C, chlamydia and gonorrhea. BPH. He admits to progressive increase frequent urination, urgency, hesitancy and dribbling sensation with urination. No fever or chills. He declines RAQUEL. Declines medications at this point however he states that he would like to have the PSA checked first, even now I have informed patient that PSA can be inaccurate RAQUEL is deferred but is adamant on not getting it done today however he agrees to be referred to urology for any testing if needed. Unspecified hemorrhoids. She declines examination. He mentions that he does have a long-standing history of hemorrhoids including constipation. I have informed patient that to increase fiber diets and decrease carb intake. He has tried Anusol without much improvement. Recommended sitz bath. He denies any blood in the stool. However he would like to be referred to GI to be checked for possible colonoscopy. Denies any family history of colon cancer. Hyperlipidemia. Recent triglyceride of 215 with a goal to be below 150. Did have a long discussion about diet modification with reducing greasy, fried food. He is not interested in medications at this point due to first to adjust his diet. I have recommended fish oil supplements. Hypertension. Blood pressure is within acceptable range. Continue on amlodipine 7.5 mg. Recent comp shows normal kidney and electrolytes. Recent blood work has been discussed with the patient Screening blood work has been ordered General concerns have been discussed I have rendered the services for this patient under direct supervision of Dr. Martins, who did not see the patient but was available upon request Content of this note has been dictated using voice recognition software. Despite multiple revisions, Errors may persistContent of this note has been dictated using voice recognition software. Despite multiple revisions, Errors may persist 02/24/2025 Benign prostatic hyperplasia with lower urinary tract symptoms (ICD-10 - N40.1) Carlos is a 44-year-old gentleman with history of opioid disorder has been on Suboxone currently prescribed but not taking regularly, hypertension is here for recent ER follow-up. We do not have records, once obtained through review and make further recommendation. History and physical were obtained from the patient as he states that he had a tooth infection and now was taking care of at the ER with antibiotic which she has finished a course of antibiotic and the swelling has improved significantly. He is concerned about colon issues , prostate and would like to be screened for STDs including hep C. Plan as follows Screening for STDs. We will check syphilis, HIV, viral hep B and C, chlamydia and gonorrhea. BPH. He admits to progressive increase frequent urination, urgency, hesitancy and dribbling sensation with urination. No fever or chills. He declines RAQUEL. Declines medications at this point however he states that he would like to have the PSA checked first, even now I have informed patient that PSA can be inaccurate RAQUEL is deferred but is adamant on not getting it done today however he agrees to be referred to urology for any testing if needed. Unspecified hemorrhoids. She declines examination. He mentions that he does have a long-standing history of hemorrhoids including constipation. I have informed patient that to increase fiber diets and decrease carb intake. He has tried Anusol without much improvement. Recommended sitz bath. He denies any blood in the stool. However he would like to be referred to GI to be checked for possible colonoscopy. Denies any family history of colon cancer. Hyperlipidemia. Recent triglyceride of 215 with a goal to be below 150. Did have a long discussion about diet modification with reducing greasy, fried food. He is not interested in medications at this point due to first to adjust his diet. I have recommended fish oil supplements. Hypertension. Blood pressure is within acceptable range. Continue on amlodipine 7.5 mg. Recent comp shows normal kidney and electrolytes. Recent blood work has been discussed with the patient Screening blood work has been ordered General concerns have been discussed I have rendered the services for this patient under direct supervision of Dr. Martins, who did not see the patient but was available upon request Content of this note has been dictated using voice recognition software. Despite multiple revisions, Errors may persistContent of this note has been dictated using voice recognition software. Despite multiple revisions, Errors may persist 02/24/2025 Unspecified hemorrhoids (ICD-10 - K64.9) Carlos is a 44-year-old gentleman with history of opioid disorder has been on Suboxone currently prescribed but not taking regularly, hypertension is here for recent ER follow-up. We do not have records, once obtained through review and make further recommendation. History and physical were obtained from the patient as he states that he had a tooth infection and now was taking care of at the ER with antibiotic which she has finished a course of antibiotic and the swelling has improved significantly. He is concerned about colon issues , prostate and would like to be screened for STDs including hep C. Plan as follows Screening for STDs. We will check syphilis, HIV, viral hep B and C, chlamydia and gonorrhea. BPH. He admits to progressive increase frequent urination, urgency, hesitancy and dribbling sensation with urination. No fever or chills. He declines RAQUEL. Declines medications at this point however he states that he would like to have the PSA checked first, even now I have informed patient that PSA can be inaccurate RAQUEL is deferred but is adamant on not getting it done today however he agrees to be referred to urology for any testing if needed. Unspecified hemorrhoids. She declines examination. He mentions that he does have a long-standing history of hemorrhoids including constipation. I have informed patient that to increase fiber diets and decrease carb intake. He has tried Anusol without much improvement. Recommended sitz bath. He denies any blood in the stool. However he would like to be referred to GI to be checked for possible colonoscopy. Denies any family history of colon cancer. Hyperlipidemia. Recent triglyceride of 215 with a goal to be below 150. Did have a long discussion about diet modification with reducing greasy, fried food. He is not interested in medications at this point due to first to adjust his diet. I have recommended fish oil supplements. Hypertension. Blood pressure is within acceptable range. Continue on amlodipine 7.5 mg. Recent comp shows normal kidney and electrolytes. Recent blood work has been discussed with the patient Screening blood work has been ordered General concerns have been discussed I have rendered the services for this patient under direct supervision of Dr. Martins, who did not see the patient but was available upon request Content of this note has been dictated using voice recognition software. Despite multiple revisions, Errors may persistContent of this note has been dictated using voice recognition software. Despite multiple revisions, Errors may persist 02/24/2025 Hyperlipidemia, mixed (ICD-10 - E78.2) Carlos is a 44-year-old gentleman with history of opioid disorder has been on Suboxone currently prescribed but not taking regularly, hypertension is here for recent ER follow-up. We do not have records, once obtained through review and make further recommendation. History and physical were obtained from the patient as he states that he had a tooth infection and now was taking care of at the ER with antibiotic which she has finished a course of antibiotic and the swelling has improved significantly. He is concerned about colon issues , prostate and would like to be screened for STDs including hep C. Plan as follows Screening for STDs. We will check syphilis, HIV, viral hep B and C, chlamydia and gonorrhea. BPH. He admits to progressive increase frequent urination, urgency, hesitancy and dribbling sensation with urination. No fever or chills. He declines RAQUEL. Declines medications at this point however he states that he would like to have the PSA checked first, even now I have informed patient that PSA can be inaccurate RAQUEL is deferred but is adamant on not getting it done today however he agrees to be referred to urology for any testing if needed. Unspecified hemorrhoids. She declines examination. He mentions that he does have a long-standing history of hemorrhoids including constipation. I have informed patient that to increase fiber diets and decrease carb intake. He has tried Anusol without much improvement. Recommended sitz bath. He denies any blood in the stool. However he would like to be referred to GI to be checked for possible colonoscopy. Denies any family history of colon cancer. Hyperlipidemia. Recent triglyceride of 215 with a goal to be below 150. Did have a long discussion about diet modification with reducing greasy, fried food. He is not interested in medications at this point due to first to adjust his diet. I have recommended fish oil supplements. Hypertension. Blood pressure is within acceptable range. Continue on amlodipine 7.5 mg. Recent comp shows normal kidney and electrolytes. Recent blood work has been discussed with the patient Screening blood work has been ordered General concerns have been discussed I have rendered the services for this patient under direct supervision of Dr. Martins, who did not see the patient but was available upon request Content of this note has been dictated using voice recognition software. Despite multiple revisions, Errors may persistContent of this note has been dictated using voice recognition software. Despite multiple revisions, Errors may persist 02/24/2025 HTN (hypertension), benign (ICD-10 - I10) Carlos is a 44-year-old gentleman with history of opioid disorder has been on Suboxone currently prescribed but not taking regularly, hypertension is here for recent ER follow-up. We do not have records, once obtained through review and make further recommendation. History and physical were obtained from the patient as he states that he had a tooth infection and now was taking care of at the ER with antibiotic which she has finished a course of antibiotic and the swelling has improved significantly. He is concerned about colon issues , prostate and would like to be screened for STDs including hep C. Plan as follows Screening for STDs. We will check syphilis, HIV, viral hep B and C, chlamydia and gonorrhea. BPH. He admits to progressive increase frequent urination, urgency, hesitancy and dribbling sensation with urination. No fever or chills. He declines RAQUEL. Declines medications at this point however he states that he would like to have the PSA checked first, even now I have informed patient that PSA can be inaccurate RAQUEL is deferred but is adamant on not getting it done today however he agrees to be referred to urology for any testing if needed. Unspecified hemorrhoids. She declines examination. He mentions that he does have a long-standing history of hemorrhoids including constipation. I have informed patient that to increase fiber diets and decrease carb intake. He has tried Anusol without much improvement. Recommended sitz bath. He denies any blood in the stool. However he would like to be referred to GI to be checked for possible colonoscopy. Denies any family history of colon cancer. Hyperlipidemia. Recent triglyceride of 215 with a goal to be below 150. Did have a long discussion about diet modification with reducing greasy, fried food. He is not interested in medications at this point due to first to adjust his diet. I have recommended fish oil supplements. Hypertension. Blood pressure is within acceptable range. Continue on amlodipine 7.5 mg. Recent comp shows normal kidney and electrolytes. Recent blood work has been discussed with the patient Screening blood work has been ordered General concerns have been discussed I have rendered the services for this patient under direct supervision of Dr. Martins, who did not see the patient but was available upon request Content of this note has been dictated using voice recognition software. Despite multiple revisions, Errors may persistContent of this note has been dictated using voice recognition software. Despite multiple revisions, Errors may persist Plan Of Treatment Pending Test Test Name Order Date Treponema pallidum Antibodies-036333 HIV Ab/p24 Ag with Reflex-080012 025 Viral Hepatitis HBV, HCV-[id number] 02/25/20 25 Chlamydia/GC Amplification-[id number] 2024 PSA (Serial Monitor)-[id number] 02/24/2025 Future Test Test Name Order Date Lipid Panel-[id number] 02/24/2025 Insurance Providers Payer Name Payer Address Payer Phone Subscriber Number Group Number Insured Name Patient Relationship to Insured Coverage Start Date Coverage End Date [facility] [address] [place] [address] [id number] Clemente Kearns Self - patient is the insured Medical (General) History Medical History History ICD Code hypertension History of opioid disorder Surgical History Surgery Date(Month/Year) L4-L5 spine surgery status p ost disc herniation repair in 2021 at [facility] Left hand surgery status post fall causi ng a tear status post repair
--- OUTSIDE RECORDS SUMMARY | 2025-08-04 21:11 | XMS_ITS | Clinical Summary ---
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
[2025-08-04 21:18] LABS: MANUAL DIFF FLAG NO
[2025-08-04 21:20] LABS: Hematocrit 46.8 % (42.0-52.0); Hemoglobin 15.4 g/dl (14.0-18.0); Imm Gran Abs Auto 0.03 X10*3/uL (0.00-0.03); Imm Gran Pct Auto 0.4 % (0.0-0.4); Lymphocytes Absolute Auto 2.1 X10*3/uL (1.2-4.9); Mean Corpuscular HGB Conc 32.9 g/dl (31.0-36.0); Mean Corpuscular Hemoglobin 28.2 pg (27.0-33.0); Mean Corpuscular Volume 85.6 fL (80.0-98.0); NRBC Abs Auto 0.000 X10*3/uL (0.0-0.012); NRBC Pct Auto 0.0 /100WBC (0.0-0.2); Platelet Count 332 X10*3/uL (160-400); Red Blood Count 5.47 X10*6/uL (4.60-5.80); White Blood Count 8.1 X10*3/uL (4.8-10.8)
[2025-08-04 21:32] LABS: Alanine Aminotransferase 53 U/L (0-40); Albumin Level 4.4 g/dL (3.5-5.0); Alkaline Phosphatase 104 U/L (39-117); Anion Gap 11 (12-20); Aspartate Amino Transferase 61 U/L (5-37); Blood Urea Nitrogen 9 mg/dL (9-16); Calcium 10.0 mg/dL (8.4-10.2); Carbon Dioxide 32 mmol/L (22-29); Chloride 101 mmol/L (96-108); Creatinine Clr Calc Pharmacy 125.0; Estimated Glomerular Filt Rate > 60; Lipase 17 U/L (8-78); Potassium 5.1 mmol/L (3.3-5.1); Sodium 139 mmol/L (135-145); Total Protein 8.8 g/dL (6.5-8.0)
--- NOTE | 2025-08-05 02:47 | PC.NURSE ---
Assumed care of pt, presents with mid to lower back pain from surgery 2 yrs ago, pt is poor historian , pt take methadone 85 mg and heroine, which he snorts to deal with the pain, pt tried to stop taking methadone and heroine last week but only lasted two days, and started feeling sick, last used heroine yesterday.
[2025-08-05] MEDS: methADONE HCl 20 MG/2 ML ORAL.CONC 30 MG PO (03:40)
[2025-08-05 03:45] VITALS: BP 121/72; PULSE 115; RESP 16; TEMP 37.2; O2SAT 94
[2025-08-05 04:03] LABS: Appearance Urine Clear; Glucose Urine UA Negative (Negative); PH 6.0 (5.0-9.0); Specific Gravity - Urine >= 1.030 (1.005-1.025); UMIC TRIGGER UACC YES
[2025-08-05 04:15] LABS: Cannabinoid Screen Urine Not Detected (Not Detect)
[2025-08-05 06:23] VITALS: BP 112/64; PULSE 83; RESP 18; TEMP 36.6; O2SAT 96
--- NOTE | 2025-08-05 08:07 | MHC.CARE ---
Attempted to meet with pt, he did not respond to the numerous attempts to awaken him.
[2025-08-05 08:25] VITALS: BP 110/80; PULSE 75; RESP 16; O2SAT 97
--- NOTE | 2025-08-05 09:53 | MHC.CARE ---
CARE Team meets with client who states he has no interest in detox and evans wants Methadone. Pt declines to engage in a formal recovery assessment, stating he would call CARE Team later to discuss methadone.? He, moments later, engages in a discussion, still declining to engage in a Recovery assessment though. He reports an interest in Methadone clinics, he is provided a list of clinics and declines, stating he does not want to be in the [facility] area for methadone and prefers the [place] area.? CARE Team provides a list of clinics in that area for pt. Pt?s nurse and provider are advised of such and a last dose letter is requested as pt did receive Methadone while in the ED.
--- NOTE | 2025-08-05 09:58 | PC.NURSE ---
pt awake, alert, speaking with Tal[facility] CARE team. planning for D/c at this time with f/u methadone clinic. pt independently ambulating around ED room.
[2025-08-05 10:17] VITALS: BP 110/80; PULSE 75; RESP 16; TEMP -17.7; TEMP 0; O2SAT 97
== END 2025-08-05 10:27 | disposition home or self-care (01) ==
PROVIDERS: Physician Assistant; Emergency Provider Emergency Medicine
DX: F19.10 Other psychoactive substance abuse, uncomplicated (principal); M54.50 Low back pain, unspecified; J45.909 Unspecified asthma, uncomplicated; Z91.81 History of falling
CPT/HCPCS: 36415; 72100; 80053; 80307; 81001; 83690; 85025; 93005; 96372; 99285; J1885

== ENCOUNTER → 2025-08-04 20:47 | Outpatient (BNV) | payer BC, SELFPAY | PROVIDERS: Emergency Provider Emergency Medicine; Visit Provider Internal Medicine | DX: R00.0 Tachycardia, unspecified (principal) | CPT/HCPCS: 93010 ==

== ENCOUNTER → 2025-08-05 03:15 | Outpatient (BNV) | payer BC, SELFPAY | PROVIDERS: Emergency Provider Emergency Medicine; Visit Provider Radiology Diagnostic Radiology | DX: M54.50 Low back pain, unspecified (principal); Z04.3 Encounter for examination and observation following other accident | CPT/HCPCS: 72100 ==